=== PATIENT | male | born 1950 | race Caucasian/White ===

== ENCOUNTER 2024-02-20 01:04 | Inpatient (IN) | payer MEDICARE, SELFPAY ==
[2024-02-20] VITALS (38 sets, daily range): BP systolic 91–148; BP diastolic 63–91; PULSE 44–76; RESP 0–27; TEMP 36.1–36.7; O2SAT 96–100; BMI 31.1
--- NOTE | 2024-02-20 01:10 | ED.VIS.GI ---
HPI HPI - GI History of Present Illness Chief Complaint: Abd Pain Informant: patient Abdominal Pain/Flank Pain Onset: Today and Hours (6) Context: Gradual Onset Timing: Continuous Quality: - (Pressure) Location: Epigastric, RUQ and LUQ Worsened by: Nothing Relieved by: Nothing Nausea/Vomiting/Emesis GI Symptom: Negative for Nausea or Vomiting Diarrhea/Melena/Hematochezia GI Symptom: Negative for Diarrhea, Melena or Hematochezia Associated Symptoms Associated Symptoms: Negative for Dysuria, Frequency or Hematuria Narrative Narrative: Patient presents with epigastric abdominal pain that began tonight approximately 6 hours prior to arrival. Patient states that his pain started in his epigastric area and radiated around to both upper quadrants. Patient states the pain radiated to his back. Patient states he had a similar episode 1 week ago and took ibuprofen for it and it resolved at that time. Patient states he took some ibuprofen tonight with no improvement. Patient describes his pain as a pressure. Patient states nothing makes his pain worse and nothing makes it better. Patient denies any chest pain or shortness of breath. Patient denies any nausea or vomiting. Patient denies any diarrhea, melena, or hematochezia. Patient denies any urinary complaints. [facility] Medical History (Updated 02/20/24 @ 06:[address] Jorgito Schaffer DO) Ischemic colitis Psoriatic arthritis Home Medications etanercept 50 mg/mL (1 mL) subcutaneous syringe (Enbrel) 50 mg subcut QWEEK 02/20/24 [History Last Taken Unknown] pantoprazole 20 mg tablet,delayed release (Protonix) 20 mg PO DAILY 02/20/24 [History Last Taken Unknown] Allergy/AdvReac Type Severity Reaction Status Date / Time clarithromycin [From Biaxin] Allergy Hives Verified 02/20/24 01:12 erythromycin base Allergy Rash Verified 02/20/24 01:12 Penicillins Allergy Rash Verified 02/20/24 01:12 Sulfa (Sulfonamide Allergy Hives Verified 02/20/24 01:12 Antibiotics) Surgical History S/P appy S/P hernia repair Social History Smoking Status: Never smoker ROS ROS ED Constitutional Constitutional ED: Denies chills or fever(s) Eyes Eyes: Denies blurry vision or change in vision ENT ENT ED: Denies rhinorrhea or sore throat Cardiovascular Cardiovascular: Denies chest pain or palpitations Respiratory/Chest Respiratory/Chest: Denies cough or dyspnea Gastrointestinal Gastrointestinal: Reports abdominal pain; Denies nausea or vomiting Genitourinary Genitourinary ED: Denies dysuria or hematuria Musculoskeletal Musculoskeletal: Reports back pain; Denies neck pain Integumentary Denies abscess or rash Neurologic Neurologic: Denies headache(s) or weakness Allergic/Immunologic Allergic/Immunologic ED: Denies mouth swelling or urticaria EXAM Physical Exam Const Vital Signs: 02/20/24 01:06 02/20/24 02:45 02/20/24 03:07 Temperature 96.9 F L Temperature Source Oral Pulse Rate 59 L 65 Respiratory Rate 16 16 Blood Pressure 131/73 H 112/80 Blood Pressure Mean 92 90 Pulse Ox 100 100 Oxygen Delivery Method Room Air Room Air Room Air 02/20/24 05:00 Temperature Temperature Source Pulse Rate 70 Respiratory Rate 17 Blood Pressure 112/75 Blood Pressure Mean 87 Pulse Ox 98 Oxygen Delivery Method Room Air Positive well nourished and well developed General Appearance ED: well developed and NAD HEENT Reports moist mucous membranes Neck supple and no JVD Resp normal respiratory effort and clear to auscultation bilaterally Cardio regular rhythm Rate: bradycardia GI non-distended Palpation: soft and tender epigastric, LUQ and RUQ; Negative for guarding or rebound tenderness present Neuro CN's II-XII intact bilaterally, moves all extremities and no sensory deficits noted Sensorium / Orientation: alert Motor Exam: strength 5/5 throughout Psych mental status grossly normal MDM MDM MDM Narrative Medical decision making narrative: Differential diagnosis includes gastritis, gastroesophageal reflux disease, pancreatitis, peptic ulcer disease, duodenal ulcer, cholecystitis, cholelithiasis, cardiac dysrhythmia, cardiac ischemia, pneumonia, and electrolyte abnormality. EKG will be obtained to assess for cardiac dysrhythmia and cardiac ischemia. Chest x-ray will be obtained to assess for pneumonia and pneumothorax. CBC will be obtained to assess for leukocytosis and anemia. Basic metabolic profile will be obtained to assess for electrolyte abnormality and renal function. High-sensitivity troponin will be obtained to assess for cardiac ischemia. Lipase will be obtained to assess for pancreatitis. Hepatic profile will be obtained to assess for hepatic function. PT was INR and PTT will be obtained to assess for coagulopathy. Urinalysis will be obtained to assess for urinary tract infection and hematuria. 2-hour repeat high-sensitivity troponin will be obtained to assess for ongoing cardiac ischemia. Lab Data Attestation: I reviewed the patient's lab results. Lab results narrative: CBC was reviewed. There is a mild leukocytosis of 12.3. The remainder is within normal limits. Basic metabolic profile was reviewed and was essentially within normal limits. Glucose was mildly elevated at 131. PT was INR and PTT were reviewed and were within normal limits. Initial high-sensitivity troponin was reviewed and was normal at 6. Lipase was reviewed and was normal at 39. Hepatic profile was reviewed. Total bilirubin was elevated at 2.5, direct bilirubin was elevated at 1.26, AST was elevated at 297, and ALT was elevated at 201. Alkaline phosphatase was normal at 68. Urinalysis was reviewed. There is no evidence of urinary tract infection or hematuria. Labs: Laboratory Results - last 24 hr 02/20/24 02/20/24 02/20/24 00:43 02:55 04:14 WBC 12.3 H RBC 4.93 Hgb 14.7 Hct 45.1 MCV 91.5 MCH 29.8 MCHC 32.6 RDW Std Deviation 46.1 H RDW Coeff of Erika 13.6 Plt Count 249 MPV 10.5 Immature Gran % (Auto) 0.300 Neut % (Auto) 43.4 L Lymph % (Auto) 45.5 H [place] % (Auto) 8.0 Eos % (Auto) 2.2 Baso % (Auto) 0.6 Absolute Neuts (auto) 5.3 Absolute Lymphs (auto) 5.58 H Nucleated RBC % 0 Differential Comment SCANNED Reactive Lymphocytes 1+ PT 13.8 INR 1.1 APTT 22.8 L Sodium 139 Potassium 3.7 Chloride 105 Carbon Dioxide 27.0 Anion Gap 7 BUN 25 H Creatinine 1.14 Estim Creat Clear Calc 68.24 Est GFR (MDRD) Af Amer 81 Est GFR (MDRD) Non-Af 67 BUN/Creatinine Ratio 21.9 H Glucose 131 H Calcium 9.0 Total Bilirubin 2.50 H Direct Bilirubin 1.26 H AST 297 H ALT 201 H Alkaline Phosphatase 68 Troponin I High Sens 6 5 Total Protein 6.9 Albumin 3.6 Globulin 3.3 Lipase 39 Urine Color Yellow Urine Clarity Clear Urine pH 6.0 Ur Specific [place] 1.025 Urine Protein 30 H Urine Glucose (UA) Normal Urine Ketones 15 H Urine Occult Blood 10 H Urine Nitrite Negative Urine Bilirubin 1 H Urine Urobilinogen 4 H Ur Leukocyte Esterase 25 H Urine RBC 0 SEEN Urine WBC 0 SEEN Ur Squamous Epith Cells 0 SEEN Urine Bacteria 1+ Urine Mucus 3+ Radiography Chest X-Ray - ED: 1 View, Read by ED Physician and Read by Radiologist Diagnostic Testing: Clinical Impression(s) from Imaging Studies Chest X-Ray 02/20/24 02:05 IMPRESSION: No radiographic evidence of acute cardiopulmonary disease. Electronically Signed: Dante Deshpande MD at 2:43 EDT Reading Location ID and State: [facility] / [place] Tel , Service support , Abdomen/Pelvis CT 02/20/24 04:20 IMPRESSION: 1. No acute intra-abdominal abnormalities identified. 2. Small gallstones. Electronically Signed: Dante Deshpande MD at 5:22 EDT Reading Location ID and State: [facility] / [place] Tel , Service support , Portable 1 view chest x-ray was obtained. On my independent interpretation, lung holder are clear. There is normal cardiac silhouette. Bony thorax is normal. There is no acute process noted. Radiologist also interpreted the x-ray and agrees. CT scan of the abdomen pelvis was obtained. There is no acute intra-abdominal process noted. There are small gallstones noted. This was interpreted by the radiologist was also independently reviewed by myself. EKG Initial EKG: Attestation: I personally reviewed and interpreted this EKG as follows: Interpretation: No Acute Injury Pattern and Sinus Bradycardia (52) Comments: EKG was obtained. On my independent interpretation, it showed sinus bradycardia with a first-degree AV block with a rate of 52. NE interval was prolonged at 230 ms. QRS interval was normal at 92 ms. QTc interval is normal at 416 ms. [place] was normal. There are no acute ST or T wave changes. Prior EKG tracings: not available for review Prior: No Prior Treatment and Re-Evaluation :: Patient was given morphine here. Patient was also given a dose of Protonix. Patient was feeling better on reevaluation. Because of the elevated liver function tests and normal CT findings, right upper quadrant ultrasound will be obtained later this morning. Patient understands and is agreeable with the plan. Care of the patient will be turned over the oncoming physician pending ultrasound. Discharge Plan Triage Chief Complaint: Abd Pain ED Provider: Jorgito Schaffer Dx/Rx/DC Orders Clinical Impression: Abdominal pain, epigastric, Cholelithiasis Prescriptions: No Action pantoprazole [Protonix] 20 mg tablet,delayed release (DR/EC) 20 mg PO DAILY Enbrel 50 mg/mL (1 mL) syringe 50 mg subcut QWEEK Primary Care Provider: RASHMI BUCHANAN Referrals: RASHMI BUCHANAN [Other]
--- NOTE | 2024-02-20 02:05 | RAD_ITS ---
EXAM: XR CHEST, 1 VIEW CLINICAL INDICATION: chest pain TECHNIQUE: Frontal view of the chest. COMPARISON: No relevant prior studies available. FINDINGS: LUNGS AND PLEURAL SPACES: Unremarkable. No consolidation or edema. No pneumothorax. No effusion. HEART: Unremarkable. Cardiac silhouette not enlarged. MEDIASTINUM: Central airways and mediastinal contour are unremarkable. BONES/JOINTS: Unremarkable. No acute fracture. SOFT TISSUES: Unremarkable. RAD/Chest 1 View (Portable) IMPRESSION: No radiographic evidence of acute cardiopulmonary disease. Electronically Signed: Dante Deshpande MD at 2:43 EDT ,
[2024-02-20 02:06] LABS: Absolute Lymphocyte Count 5.58 X10^3/uL (0.83-4.51); Absolute Neutrophil Count 5.3 X10^3/uL (2.0-7.7); Basophil# 0.07 X10^3/uL; Basophil% 0.6 % (0-1); Eosinophil# 0.27 X10^3/uL; Eosinophils% 2.2 % (0-5); Hematocrit 45.1 % (40-54); Hemoglobin 14.7 g/dL (13.0-16.5); Lymphocyte # 5.58 X10^3/ul (0.83-4.51); Lymphocyte % 45.5 % (19-41); Mean Corp Hgb Conc 32.6 g/dL (32-36); Mean Corpuscular Hgb 29.8 pg (27.0-32.0); Mean Corpuscular Volume 91.5 fL (80-94); Mean Platelet Vol. 10.5 fl (6.2-12.0); Monocyte# 0.98 X10^3/uL; NRBC Flagged by Analyzer 0 % (0-5); Neutrophil # 5.32 X10^3/uL (2.7-7.7); Neutrophil % 43.4 % (47-70); POSITIVE DIFFERENTIAL YES; POSITIVE MORPHOLOGY YES; Platelet Count 249 K/mm3 (150-450); RBC Distribution Width CV 13.6 % (11.6-14.6); RBC Distribution Width SD 46.1 fl (35.1-43.9); Red Blood Count 4.93 M/mm3 (4.6-6.2); White Blood Count 12.3 K/mm3 (4.4-11.0)
[2024-02-20 02:11] LABS: Differential Indicated SCAN CRITERIA MET
[2024-02-20 02:18] LABS: International Normalized Ratio 1.1; Partial Thromboplast Time 22.8 Seconds (24.1-36.2); Prothrombin Time (Protime)PT. 13.8 SECONDS (11.7-14.9)
[2024-02-20 02:28] LABS: Anion Gap 7 (5-15); BUN 25 mg/dL (7-18); BUN/Creat Ratio 21.9 RATIO (10-20); Chloride 105 mmol/L (98-107); Creatinine, Serum 1.14 mg/dL (0.70-1.30); EST Glomerular Filtration Rate 67 mL/min (>60); Est Glom Filt Rate - Afr Amer 81 mL/min (>60); Estimated Creatinine Clearance 68.24 ml/min; Glucose 131 mg/dL (74-106); Lipase 39 U/L (13-75); Potassium 3.7 mmol/L (3.5-5.1); Sodium Level 139 mmol/L (136-145); Troponin-I HS (w/2H Reflex) 6 pg/mL (3.0-78.0)
[2024-02-20 02:52] LABS: Differential Comment SCANNED; Reactive Lymphocyte 1+
[2024-02-20 03:00] LABS: Color, Urine Yellow (Yellow); Glucose, Dipstick Normal (Normal); Ketone-Dipstick 15 mg/dl (Negative); Leukocyte Esterase-Dipstick 25 /ul (Negative); Nitrite-Dipstick Negative (Negative); Occult Blood-Urine 10 /ul (Negative); Protein-Dipstick 30 mg/dl (Negative); Red Blood Cells-Urine 0 SEEN /hpf (0-5); Specific Gravity, Urine 1.025 (1.002-1.030); Squamous Epithelial Cells - UA 0 SEEN /hpf (0-5); Urine Clarity Clear (Clear); Urine Urobilinogen 4 mg/dl (Normal); White Blood Cells 0 SEEN /hpf (0-5)
[2024-02-20] MEDS: Pantoprazole Sodium 80 MG in 0.9% Normal Saline (50mL Bag) 15 ML 420 MG IV BOLUS (03:05)
[2024-02-20 03:18] LABS: Bacteria 1+ /hpf (None Seen); Mucous, Urine 3+ /hpf (<or=2+); Urine Bilirubin Dipstick 1 mg/dL (Negative)
[2024-02-20 04:03] LABS: Reflex Troponin-HS? (from REC) Y
[2024-02-20] MEDS: Morphine 4 MG/ML Syringe IV (04:08)
--- NOTE | 2024-02-20 04:20 | CT_ITS ---
EXAM: CT ABDOMEN AND PELVIS WITH INTRAVENOUS CONTRAST CLINICAL INDICATION: Abdominal pain TECHNIQUE: Helically acquired images were obtained of the abdomen and pelvis with intravenous contrast. This CT exam was performed using one or more of the following dose reduction techniques: automated exposure control, adjustment of the mA and/or kV according to patient size, and/or use of iterative reconstruction technique. CONTRAST: IV 100mL Isovue-370 RADIATION DOSE: CTDIvol = 20.62 mGy, DLP = 1139.57 mGy-cm COMPARISON: No relevant prior studies available. FINDINGS: LOWER THORAX: Bibasilar dependent atelectasis. No cardiomegaly. No significant pericardial effusion. ABDOMEN: LIVER: Unremarkable. Homogeneous. No focal mass. GALLBLADDER AND BILE DUCTS: Small gallstones. No gallbladder distention or wall edema. No intra- or extrahepatic biliary ductal dilation. PANCREAS: No inflammation around the pancreas. No focal cystic or solid mass. SPLEEN: Unremarkable. Normal size without focal cystic or solid mass. ADRENALS: Unremarkable. No nodules. KIDNEYS AND URETERS: Unremarkable. Normal renal size and position. No hydronephrosis. STOMACH AND BOWEL: Unremarkable. No stomach or bowel distention. No focal inflammatory change. PELVIS: APPENDIX: Appendectomy. BLADDER: Unremarkable. REPRODUCTIVE: Unremarkable as visualized. No mass. ABDOMEN and PELVIS: INTRAPERITONEAL SPACE: Unremarkable. No ascites or other fluid collection. No free air. BONES/JOINTS: Unremarkable. No suspicious lytic or blastic abnormality. SOFT TISSUES: Small fat-containing periumbilical hernia. VASCULATURE: Unremarkable. Abdominal aorta is non-dilated. LYMPH NODES: Unremarkable. No enlarged lymph nodes. CT/Abdomen/Pelvis W IV Cont ONLY IMPRESSION: 1. No acute intra-abdominal abnormalities identified. 2. Small gallstones. Electronically Signed: Dante Deshpande MD at 5:22 EDT ,
[2024-02-20 04:45] LABS: AST(SGOT) 297 U/L (15-37); Alanine Aminotransfer ALT/SGPT 201 U/L (16-61); Albumin, Serum 3.6 g/dL (3.2-5.0); Alkaline Phosphatase 68 U/L (45-117); Bilirubin, Direct 1.26 mg/dL (0.00-0.30); Globulin 3.3 g/dL (2.2-4.2); Protein, Total 6.9 g/dL (6.4-8.2); Troponin-I HS 5 pg/mL (3.0-78.0)
--- NOTE | 2024-02-20 06:21 | US_ITS ---
STUDY: ABDOMINAL ULTRASOUND - RIGHT UPPER QUADRANT REASON FOR VISIT: Male, 73 years old ABD PAIN TECHNIQUE: Ultrasound evaluation of the right upper quadrant was performed with real-time and static isaacs-scale imaging. TECHNICAL QUALITY: Limited. Examination limited by bowel gas. COMPARISON: None. FINDINGS: Liver: The liver measures 18 cm. There is increased echogenicity consistent with fatty infiltration. The bile ducts are within normal limits. There is hepatic color flow. The direction of portal flow is hepatopetal. There is no demonstrated mass lesion. Gallbladder: Normal distended gallbladder. The gallbladder wall measures 3.2 mm. There is a positive sonographic Shaver''s sign. There is minimal pericholecystic fluid. There are multiple echogenic structures within the gallbladder, consistent with multiple gallstones along with echogenic sludge. Common Bile Duct (C.B.D.): The common bile duct measures 3.7 mm. Pancreas: There is nonvisualization of the pancreas. Right Kidney: Normal size of the right kidney. The right kidney measures 11 x 5.3 x 5.3 cm. Normal renal cortex. The right cortex measures 1.3 cm. There is no demonstrated renal mass or cyst. There is no right hydronephrosis. US/Abdomen Limited IMPRESSION: Multiple echogenic gallstones noted along with echogenic sludge, or wall thickening, positive Shaver sign and pericholecystic fluid. Findings consistent with acute cholecystitis. Surgical consultation recommended Hepatomegaly with diffuse fatty infiltration, no discrete lesion Electronically Signed: Jabari Soto MD at 9:05 EDT ,
--- NOTE | 2024-02-20 10:03 | NURSING ---
DR NAVARRO IN ROOM
--- NOTE | 2024-02-20 10:40 | PCM.HP.STD ---
HPI - General General Date of Admission: 02/20/24 HPI Narrative JULIO DAS, is a 73 M who presents to [facility] with complaints of acute onset right upper quadrant radiating abdominal pain. He shares that last evening at approximately 7 PM he began to get uncomfortable but by the time that time approached he was unable to find a comfortable position despite taking a couple of ibuprofen. He shares that he had some cold sweats at the time but did not record a fever and denies any associated nausea. He notified his and the called EMS. Patient's ER workup was notable for CBC demonstrating mild leukocytosis of 12,000. Further CMP showed elevations of the patient's liver function testing and bilirubin. CT of the abdomen pelvis showed no acute intra-abdominal abnormalities per radiology but given patient's laboratories a abdominal ultrasound was obtained. This showed a gallbladder with normal gallbladder wall thickness but mild pericholecystic fluid and dormitory maid noted a positive Shaver sign. Also notably the common bile duct was within normal limits at 3.7 mm diameter. Thus radiology interpreted this was consistent with acute cholecystitis. Patient states this is actually his second such episode of abdominal discomfort in the last 1 week. He shares that just 1 week ago he had a similar episode of pain that was relieved by 2 ibuprofen. He notes that both episodes followed eating by approximately 2 hours. Patient is reasonably healthy with diagnoses of sporadic ischemic colitis (which she states manifests after periods of dehydration and numerous loose stools approximately 1 time per year). He notes that his present episode was distinct from these prior experiences. He has diagnosed with psoriatic arthritis and uses Enbrel to control his symptoms. He states his last use of Enbrel was 02/17/2024. Mr. Das has a history of a open appendectomy at age 23 and a inguinal hernia repair done 11 or 12 years ago at [facility] in [place]. [facility] Medical History (Updated 02/20/24 @ 11:[address] Julio Murphy MD) Ischemic colitis Psoriatic arthritis Home Medications etanercept 50 mg/mL (1 mL) subcutaneous syringe (Enbrel) 50 mg subcut QWEEK 02/20/24 [History Last Taken Unknown] pantoprazole 20 mg tablet,delayed release (Protonix) 20 mg PO DAILY 02/20/24 [History Last Taken Unknown] Allergy/AdvReac Type Severity Reaction Status Date / Time clarithromycin [From Biaxin] Allergy Hives Verified 02/20/24 01:12 erythromycin base Allergy Rash Verified 02/20/24 01:12 Penicillins Allergy Rash Verified 02/20/24 01:12 Sulfa (Sulfonamide Allergy Hives Verified 02/20/24 01:12 Antibiotics) Surgical History S/P appy S/P hernia repair Social History Smoking Status: Never smoker Vital Signs Vital Signs Vital Signs: 02/20/24 01:06 02/20/24 02:45 02/20/24 03:07 Temperature 96.9 F L Temperature Source Oral Pulse Rate 59 L 65 Respiratory Rate 16 16 Blood Pressure 131/73 H 112/80 Blood Pressure Mean 92 90 Pulse Ox 100 100 Oxygen Delivery Method Room Air Room Air Room Air 02/20/24 05:00 02/20/24 07:00 02/20/24 01:34 Temperature Temperature Source Pulse Rate 70 49 L 52 L Respiratory Rate 17 19 H 15 Blood Pressure 112/75 103/70 Blood Pressure Mean 87 81 Pulse Ox 98 98 99 Oxygen Delivery Method Room Air Room Air 02/20/24 01:45 02/20/24 02:00 02/20/24 02:15 Temperature Temperature Source Pulse Rate 56 L 55 L 56 L Respiratory Rate 27 H 14 14 Blood Pressure 114/88 H 99/75 98/75 Blood Pressure Mean 98 84 84 Pulse Ox 98 96 96 Oxygen Delivery Method 02/20/24 02:30 02/20/24 02:45 02/20/24 03:04 Temperature Temperature Source Pulse Rate 55 L Respiratory Rate 13 0 L Blood Pressure 105/73 101/77 Blood Pressure Mean 85 86 Pulse Ox 97 98 Oxygen Delivery Method 02/20/24 03:08 02/20/24 03:08 02/20/24 03:15 Temperature Temperature Source Pulse Rate 52 L 52 L 53 L Respiratory Rate 14 14 17 Blood Pressure 112/80 112/80 116/80 Blood Pressure Mean 91 91 93 Pulse Ox 100 100 100 Oxygen Delivery Method 02/20/24 03:15 02/20/24 03:30 02/20/24 03:45 Temperature Temperature Source Pulse Rate 53 L 49 L 44 L Respiratory Rate 17 13 22 H Blood Pressure 116/80 115/77 107/79 Blood Pressure Mean 93 90 89 Pulse Ox 100 98 100 Oxygen Delivery Method 02/20/24 04:00 02/20/24 04:15 02/20/24 04:30 Temperature Temperature Source Pulse Rate 46 L 51 L 54 L Respiratory Rate 22 H 20 H 13 Blood Pressure 126/82 H 148/84 H 106/81 H Blood Pressure Mean 97 105 89 Pulse Ox 100 100 97 Oxygen Delivery Method 02/20/24 04:45 02/20/24 04:58 02/20/24 05:00 Temperature Temperature Source Pulse Rate 61 57 L Respiratory Rate 12 12 Blood Pressure 91/72 112/75 Blood Pressure Mean 80 87 Pulse Ox 99 98 Oxygen Delivery Method 02/20/24 05:15 02/20/24 05:30 02/20/24 05:45 Temperature Temperature Source Pulse Rate 55 L 55 L Respiratory Rate 12 13 Blood Pressure 110/74 102/74 102/74 Blood Pressure Mean 86 83 83 Pulse Ox 97 97 Oxygen Delivery Method 02/20/24 06:00 02/20/24 06:15 02/20/24 06:30 Temperature Temperature Source Pulse Rate 68 50 L Respiratory Rate 15 12 Blood Pressure 108/75 107/74 107/73 Blood Pressure Mean 86 85 85 Pulse Ox 99 97 Oxygen Delivery Method 02/20/24 06:45 02/20/24 07:00 02/20/24 07:15 Temperature Temperature Source Pulse Rate 46 L 48 L Respiratory Rate 12 13 Blood Pressure 106/75 103/70 109/76 Blood Pressure Mean 85 81 87 Pulse Ox 98 98 Oxygen Delivery Method 02/20/24 07:30 02/20/24 07:45 02/20/24 08:00 Temperature Temperature Source Pulse Rate 48 L 54 L 50 L Respiratory Rate 12 13 12 Blood Pressure 109/80 107/78 111/81 H Blood Pressure Mean 90 87 91 Pulse Ox 98 98 98 Oxygen Delivery Method 02/20/24 08:45 02/20/24 09:15 Temperature Temperature Source Pulse Rate 47 L Respiratory Rate 16 Blood Pressure 118/90 H 112/74 Blood Pressure Mean 99 87 Pulse Ox 99 Oxygen Delivery Method Weight Weight: 213 lb 10.047 oz Body Mass Index (BMI) 31.1 Physical Exam Const alert, oriented x3 and no apparent distress Resp normal respiratory effort GI GI Narrative: Overweight, readily visible umbilical hernia, no immediately visible scarring, nondistended, soft, tender to palpation in the right upper quadrant with negative Shaver sign Results Lab / Micro Data 02/20/24 00:43 02/20/24 00:43 Labs: Laboratory Results - last 24 hr 02/20/24 00:43: WBC 12.3 H, RBC 4.93, Hgb 14.7, Hct 45.1, MCV 91.5, MCH 29.8, MCHC 32.6, RDW Std Deviation 46.1 H, RDW Coeff of Erika 13.6, Plt Count 249, MPV 10.5, Immature Gran % (Auto) 0.300, Neut % (Auto) 43.4 L, Lymph % (Auto) 45.5 H, [place] % (Auto) 8.0, Eos % (Auto) 2.2, Baso % (Auto) 0.6, Absolute Neuts (auto) 5.3, Absolute Lymphs (auto) 5.58 H, Nucleated RBC % 0, Differential Comment SCANNED, Reactive Lymphocytes 1+, PT 13.8, INR 1.1, APTT 22.8 L, Sodium 139, Potassium 3.7, Chloride 105, Carbon Dioxide 27.0, Anion Gap 7, BUN 25 H, Creatinine 1.14, Estim Creat Clear Calc 68.24, Est GFR (MDRD) Af Amer 81, Est GFR (MDRD) Non-Af 67, BUN/Creatinine Ratio 21.9 H, Glucose 131 H, Calcium 9.0, Troponin I High Sens 6, Lipase 39 02/20/24 02:55: Urine Color Yellow, Urine Clarity Clear, Urine pH 6.0, Ur Specific [place] 1.025, Urine Protein 30 H, Urine Glucose (UA) Normal, Urine Ketones 15 H, Urine Occult Blood 10 H, Urine Nitrite Negative, Urine Bilirubin 1 H, Urine Urobilinogen 4 H, Ur Leukocyte Esterase 25 H, Urine RBC 0 SEEN, Urine WBC 0 SEEN, Ur Squamous Epith Cells 0 SEEN, Urine Bacteria 1+, Urine Mucus 3+ 02/20/24 04:14: Total Bilirubin 2.50 H, Direct Bilirubin 1.26 H, AST 297 H, ALT 201 H, Alkaline Phosphatase 68, Troponin I High Sens 5, Total Protein 6.9, Albumin 3.6, Globulin 3.3 Imaging Radiology Impression Chest X-Ray 02/20/24 02:05 IMPRESSION: No radiographic evidence of acute cardiopulmonary disease. Electronically Signed: Dante Deshpande MD at 2:43 EDT , Abdomen/Pelvis CT 02/20/24 04:20 IMPRESSION: 1. No acute intra-abdominal abnormalities identified. 2. Small gallstones. Electronically Signed: Dante Deshpande MD at 5:22 EDT , Abdomen Ultrasound 02/20/24 06:21 IMPRESSION: Multiple echogenic gallstones noted along with echogenic sludge, or wall thickening, positive Shaver sign and pericholecystic fluid. Findings consistent with acute cholecystitis. Surgical consultation recommended Hepatomegaly with diffuse fatty infiltration, no discrete lesion Electronically Signed: Jabari Soto MD at 9:05 EDT , Assessment & Plan Assessment/Plan (1) Cholecystitis, acute with cholelithiasis: PLAN: Patient is a 73-year-old male with minimal past medical history who presents with acute onset right upper quadrant abdominal discomfort with a radiating character that is consistent with a diagnosis of acute cholecystitis. Pain onset has occurred twice?both in a postprandial state. Patient's ER workup shows evidence of gallbladder inflammation and confirms presence of cholelithiasis. Thus patient has been counseled on these findings and the recommendation to pursue laparoscopic cholecystectomy with intraoperative cholangiography details of the procedure were given as well as post procedure expectations. He and his were receptive of this information and in the interim patient will be admitted to an inpatient status with IV antibiotic therapy. He has allergies to penicillins but according to his , who is a registered nurse, patient previously tolerated cephalosporins so he will be started on Rocephin IV. Patient okay for clear liquid diet until midnight and then patient should be n.p.o. past midnight in anticipation of surgery. Consents to be obtained. (2) Abnormal LFTs (liver function tests): PLAN: Patient with abnormal liver function testing and hyperbilirubinemia but common bile duct diameter is within normal limits. This therefore is mildly suggestive for underlying choledocholithiasis. Will plan for intraoperative cholangiography in addition to cholecystectomy as described above. (3) Conjugated hyperbilirubinemia: PLAN: Patient reports a history of elevated bilirubin extending beyond his acute presentation. He shares that this was previously explained as a side effect of his Enbrel therapy. Yet with the associated elevations in his LFTs and is suggestive for possible choledocholithiasis as well. The possibility of ERCP if positive IOC is found was discussed. (4) Umbilical hernia without obstruction and without gangrene: PLAN: Patient with a chronic nonobstructive umbilical hernia measuring just over 2 cm in diameter. On exam this hernia appears to contain fat but is easily reduced. Patient does not have a significant distance between his supraumbilical space and subxiphoid territory which limits operative port placement if we look to try to avoid his hernia. Thus I have offered performing a primary umbilical hernia repair at the time of his operation and simply using his hernia defect for placement of our primary port. Patient was initially hesitant but then confirms his willingness to abide by postoperative activity restrictions of no lifting greater than 15 pounds for 4 weeks after the operation the name of trying to avoid a second surgery. I did share with him that under elective conditions I would recommend mesh usage but given the potential for cross-contamination from the cholecystectomy would not plan for mesh incorporation with this repair. Patient expressed understanding and therefore patient is to be consented for primary repair of umbilical hernia along with cholecystectomy discussed above. Charges/Coding Visit Charges Inpatient E&M: 45343 Init Hosp L2
--- NOTE | 2024-02-20 10:42 | NURSING ---
MED SURG [facility] ACUTE CHOLECYSTITIS
[2024-02-20] MEDS: 0.9% Normal Saline (1000mL) 1,000 ML 125 ML IV ×2 (12:22→21:59)
[2024-02-20] MEDS: Ceftriaxone 1 GM/50 ML BAG IV (12:22)
[2024-02-21] VITALS (14 sets, daily range): BP systolic 95–125; BP diastolic 63–83; PULSE 50–78; RESP 12–18; TEMP 36.2–36.7; O2SAT 92–100; BMI 31.1
--- NOTE | 2024-02-21 | GALL_PTH ---
PATIENT: JULIO DAS LOC: MS3 U#:[id number] AGE/SX: 73/M ROOM: MS311 RE02/20/[address]: Dr. Julio Murphy MD : 1950 BED: 1 DIS: 02/22/2024 SPEC #: [id number] RECD: 02/21/24 17:22 STATUS: TALIB BRIGHTHanny #: [id number] CRISTI: 02/21/24 00:[address]: Julio Murphy DEPT: SURGICAL PATHOLOGY RECD BY: Raghavendra Aguero Tissues: Gallbladder, NOS Procedures: Surgery Specimen Level III HEADER OPERATION: Laparoscopic, cholecystectomy with IOC, umbilical hernia repair PRE-OP DIAGNOSIS: Cholecystitis, acute with cholelithiasis, abnormal LFT's, conjugated hyperbilirubinemia, umbilical hernia without obstruction and without gangrene TISSUE SUBMITTED: Gallbladder MICROSCOPIC DIAGNOSIS Gallbladder, cholecystectomy: Chronic cholecystitis, cholelithiasis and cholesterolosis. SJ/mr 02/23/2024 MICROSCOPIC DESCRIPTION Slides are reviewed. GROSS DESCRIPTION Received is one container labeled with the patient's name and designated gallbladder. The specimen consists of a gallbladder measuring 7.5 cm in length and up to 3.5 cm in diameter. The external surface is pink-garaz, smooth and glistening for the most part. Focally it is granular, hemorrhagic and contains cautery artifact. The gallbladder contains green-yellow mucoid bile and one irregular black stone measuring 0.4 cm in greatest dimension. The mucosa is bile-stained and without any mass lesions. The gallbladder wall measures up to 0.3 cm in thickness. [employer] Se[employer] Delivery System Maintainer sections from the gallbladder and the cystic duct are submitted in one cassette. / SJ: 02/22/24 TC:3 CPT: 69899
[2024-02-21 04:27] LABS: Absolute Lymphocyte Count 2.49 X10^3/uL (0.83-4.51); Absolute Neutrophil Count 2.9 X10^3/uL (2.0-7.7); Basophil# 0.06 X10^3/uL; Eosinophil# 0.29 X10^3/uL; Eosinophils% 4.6 % (0-5); Hematocrit 41.1 % (40-54); Hemoglobin 13.5 g/dL (13.0-16.5); Lymphocyte # 2.49 X10^3/ul (0.83-4.51); Lymphocyte % 39.6 % (19-41); Mean Corp Hgb Conc 32.8 g/dL (32-36); Mean Corpuscular Hgb 30.3 pg (27.0-32.0); Mean Corpuscular Volume 92.2 fL (80-94); Mean Platelet Vol. 9.7 fl (6.2-12.0); Monocyte# 0.49 X10^3/uL; Monocyte% 7.8 % (0-10); NRBC Flagged by Analyzer 0 % (0-5); Neutrophil # 2.93 X10^3/uL (2.7-7.7); Neutrophil % 46.7 % (47-70); Platelet Count 198 K/mm3 (150-450); RBC Distribution Width CV 13.9 % (11.6-14.6); RBC Distribution Width SD 47.6 fl (35.1-43.9); Red Blood Count 4.46 M/mm3 (4.6-6.2); White Blood Count 6.3 K/mm3 (4.4-11.0)
[2024-02-21 04:49] LABS: ALB/GLOB Ratio 1.1 RATIO (0.9-2.4); AST(SGOT) 214 U/L (15-37); Alanine Aminotransfer ALT/SGPT 284 U/L (16-61); Albumin, Serum 3.1 g/dL (3.2-5.0); Alkaline Phosphatase 77 U/L (45-117); Anion Gap 6 (5-15); BUN 11 mg/dL (7-18); BUN/Creat Ratio 13.2 RATIO (10-20); Calcium,Total 8.2 mg/dL (8.5-10.1); Chloride 112 mmol/L (98-107); Creatinine, Serum 0.83 mg/dL (0.70-1.30); EST Glomerular Filtration Rate 97 mL/min (>60); Est Glom Filt Rate - Afr Amer 117 mL/min (>60); Estimated Creatinine Clearance 93.73 ml/min; Globulin 2.9 g/dL (2.2-4.2); Glucose 82 mg/dL (74-106); Potassium 3.9 mmol/L (3.5-5.1); Sodium Level 141 mmol/L (136-145)
[2024-02-21] MEDS: 0.9% Normal Saline (1000mL) 1,000 ML 125 ML IV ×3 (06:08→23:19)
--- NOTE | 2024-02-21 08:24 | PCM.PN.SRG ---
Subjective Subjective Patient seen and examined during AM rounds. He is found resting in bed. He denies any recurrence of his abdominal pain but complains only of some mild lower back pain he does share that he discussed his elevated bilirubin with his and they concluded that his elevation upon evaluation yesterday was significantly higher than what he has seen previously associated with his Enbrel medication. Objective Data Objective Data Vital Signs: Vital Signs Temp Pulse Resp BP Pulse Ox O2 Del Method 98.0 F 50 L 16 115/83 H 97 Room Air 02/21/24 03:30 02/21/24 03:30 02/21/24 03:30 02/21/24 03:30 02/21/24 03:30 02/21/24 08:00 Oxygen Delivery Method Room Air Weight: 213 lb 10.047 oz Body Mass Index (BMI) 31.1 Intake & Output: Intake and Output for Last 24 Hours 02/19/24 02/20/24 02/21/24 23:59 23:59 23:59 Intake Total 1085 / 1335 1250 / 1250 Balance 1085 / 1335 1250 / 1250 Lab / Micro Data 02/21/24 04:00 02/21/24 04:00 Labs: Laboratory Results - last 24 hr 02/21/24 04:00: WBC 6.3, RBC 4.46 L, Hgb 13.5, Hct 41.1, MCV 92.2, MCH 30.3, MCHC 32.8, RDW Std Deviation 47.6 H, RDW Coeff of Erika 13.9, Plt Count 198, MPV 9.7, Immature Gran % (Auto) 0.300, Neut % (Auto) 46.7 L, Lymph % (Auto) 39.6, [place] % (Auto) 7.8, Eos % (Auto) 4.6, Baso % (Auto) 1.0, Absolute Neuts (auto) 2.9, Absolute Lymphs (auto) 2.49, Nucleated RBC % 0, Sodium 141, Potassium 3.9, Chloride 112 H, Carbon Dioxide 23.0, Anion Gap 6, BUN 11, Creatinine 0.83, Estim Creat Clear Calc 93.73, Est GFR (MDRD) Af Amer 117, Est GFR (MDRD) Non-Af 97, BUN/Creatinine Ratio 13.2, Glucose 82, Calcium 8.2 L, Total Bilirubin 2.40 H, AST 214 H, ALT 284 H, Alkaline Phosphatase 77, Total Protein 6.0 L, Albumin 3.1 L, Globulin 2.9, Albumin/Globulin Ratio 1.1 Radiography Diagnostic Testing: Radiology Impression Abdomen Ultrasound 02/20/24 06:21 IMPRESSION: Multiple echogenic gallstones noted along with echogenic sludge, or wall thickening, positive Shaver sign and pericholecystic fluid. Findings consistent with acute cholecystitis. Surgical consultation recommended Hepatomegaly with diffuse fatty infiltration, no discrete lesion Electronically Signed: Jabari Soto MD at 9:05 EDT , Physical Exam Const oriented x3 and no apparent distress Resp normal respiratory effort GI GI Narrative: Nondistended, soft, nontender to palpation?including right upper quadrant Assessment & Plan Assessment/Plan (1) Cholecystitis, acute with cholelithiasis: PLAN: Patient is a 73-year-old male with minimal past medical history who presents with acute onset right upper quadrant abdominal discomfort with a radiating character that is consistent with a diagnosis of acute cholecystitis. Planning for laparoscopic cholecystectomy with intraoperative cholangiography today. Patient is n.p.o. past midnight. (2) Abnormal LFTs (liver function tests): PLAN: Patient with abnormal liver function testing and hyperbilirubinemia but common bile duct diameter is within normal limits. This therefore is mildly suggestive for underlying choledocholithiasis. Will plan for intraoperative cholangiography in addition to cholecystectomy as described above. These remain elevated hospital day 2 but slightly down trended. (3) Conjugated hyperbilirubinemia: PLAN: Patient reports a history of elevated bilirubin extending beyond his acute presentation. He shares that this was previously explained as a side effect of his Enbrel therapy. Yet with the associated elevations in his LFTs and is suggestive for possible choledocholithiasis as well. The possibility of ERCP if positive IOC is found was discussed. (4) Umbilical hernia without obstruction and without gangrene: PLAN: Patient with a chronic nonobstructive umbilical hernia measuring just over 2 cm in diameter. On exam this hernia appears to contain fat but is easily reduced. Patient does not have a significant distance between his supraumbilical space and subxiphoid territory which limits operative port placement if we look to try to avoid his hernia. Thus I have offered performing a primary umbilical hernia repair at the time of his operation and simply using his hernia defect for placement of our primary port. OR notified of this addition to patient's planned case. Charges/Coding Visit Charges Inpatient E&M: 63769 Subs Hosp L2
[2024-02-21] MEDS: Pantoprazole Sodium 40 MG in 0.9% Normal Saline (100mL MB+) 100 ML 330 MG IV (09:13)
[2024-02-21] MEDS: Ceftriaxone 1 GM/50 ML BAG IV (10:00)
--- NOTE | 2024-02-21 13:05 | CASEMGMT ---
This RN CM to pt room for initial assessment, pt is currently of of the floor. Will follow.
--- NOTE | 2024-02-21 13:08 | RAD_ITS ---
INDICATION: LAP DARRION WITH IOC EXAMINATION/TECHNIQUE: 2 cine runs are presented for evaluation. Total Fluoroscopic Time: 23.1 seconds Radiation dosage index: 8.86 mgy. COMPARISON: No relevant prior comparison study available FINDINGS: Filling defects are seen in the proximal common bile duct/common hepatic duct. There is no biliary ductal dilatation. There is free passage into the duodenum. RAD/Cholangiogram/ O R,Initial IMPRESSION: Filling defects in the proximal common hepatic ducts concerning for retained stones. Electronically Signed: Shiv Pérez MD at 15:49 EDT ,
[2024-02-21] MEDS: Bupivacaine Mpf 0.5% 30 ML VIAL (15:45)
--- NOTE | 2024-02-21 15:54 | OP.PCM_ITS ---
Report of Operation Date of Procedure: 02/21/24 Pre-Operative Diagnosis: 1. Acute cholecystitis with elevated LFTs and hyperbi lirubinemia 2. Umbilical hernia Post-Operative Diagnosis: 1. Acute cholecystitis 2. Umbilical hernia Surgery/Procedure Performed:: 1. Laparoscopic cholecystectomy with intraoperative cholangiography 2. Primary repair of umbilical hernia Description of Surgical Findings:: ? Evidence of acute cholecystitis with numerous adhesions and fresh edema planes ? Cholangiogram showing antegrade filling of the common bile duct through the ampulla Vater into the duodenum without filling defect or obstruction as well as retrograde filling of the common hepatic duct system Surgeon: Julio Murphy armature connector: Jose Guy Type of Anesthesia: General/Supplemental Anesthesiologist: Isaac Cooley Specimen's removed: Gallbladder Estimated Blood Loss (mL): 10 Description of Procedure: After proper identification in the preoperative holding area the patient was brought to the operating room where he was positioned supine on the operating room table. Preoperatively SCDs were connected. (Antibiotics were administered previously on the floor) General anesthesia was then induced. Patient's abdomen was prepped and draped in usual sterile fashion. A formal timeout was conducted to confirm both patient and the procedure. Procedure was begun with a curvilinear infraumbilical incision which was extended deeply down to the level of the fascia. Patient's hernia sac was circumferentially dissected and the overlying umbilical skin was dissected free of the hernia sac. Peritoneal entry was made via the patient's hernia defect. A finger sweep was performed to ensure there were no underlying adhesions and a 12 mm balloon trocar was inserted. Pneumoperitoneum was established at 15 mmHg. Three additional tr ocars (all 5 mm) were placed in the epigastrium and in the right upper quadrant. Inspection of the peritoneum revealed no inadvertent injury to the viscera below. The gallbladder was visualized with evidence of acute inflammation and several attachments to the omentum were stripped down. The gallbladder fundus was then grasped and elevated cephalad but in doing so we encountered more inflammatory change and adherence between the gallbladder body and the antral part of the stomach. Careful dissection was used to separate these 2 structures which was done with relative ease given the acute inflammatory plane. Then, using careful dissection the peritoneum was opened and the structures of the hepatocystic triangle were delineated. Once the critical view of safety was obtained, the cystic duct was singly clipped and partially divided with a ductotomy. A 14 Italian angiocatheter was inserted to the right upper quadrant then a cholangiocatheter was fed into the proximal segment of the cystic duct and clipped into place. Under fluoroscopy a cholangiogram was then obtained showing a standard length cystic duct flowing into a common bile duct with unobstructed antegrade flow of contrast into the duodenum. There was also retrograde flow through the common hepatic duct into the right and left hepatic ducts. Within the common hepatic duct system there appeared to be an air bubble that KVNG ended in the ductwork as the cholangiogram fluoroscopy proceeded. Based on this interpretation the cholangiogram was completed. Satisfied with this result, the cholangiocatheter was withdrawn and the proximal cystic duct was sealed with clips and the cystic duct was completely transected. The same process was used for the cystic artery. The gallbladder was then removed from the gallbladder fossa with the use of electrocautery. Selective electrocautery was used to obtain hemostasis in the gallbladder fossa. The gallbladder was placed in an Endo Catch bag and removed from the peritoneum. Morison's pouch was irrigated and the effluent was suctioned free of the peritoneum. Hemostasis was again confirmed. Pneumoperitoneum was evacuated and the fascia of the 12 mm umbilical port site was cleared of fat and attenuated hernia sac using a combination of blunt dissection electrocautery. Once the fascial edge was circumferentially cleared I undertook closure of the hernia using 0 Ethibond suture in a [id number] technique x 2. An interrupted suture was also required between these 2 index sutures to completely close the fascial gap. Lastly a 4-0 Monocryl suture was used to tack the overlying umbilical skin to the fascial layer. A total of 30 mL of anesthetic was injected at the port sites for postoperative pain control. The skin of each port site was then closed in subcuticular fashion using 4-0 Monocryl. Steri- Strips and bandages were applied as dressings. Patient tolerated the procedure well without any apparent complications. On emergence from their anesthetic the patient was taken to PACU for ongoing recovery. Complications None
[2024-02-22] VITALS (7 sets, daily range): BP systolic 87–130; BP diastolic 54–71; PULSE 54–69; RESP 16–18; TEMP 36.3–37; O2SAT 92–94
[2024-02-22] MEDS: 0.9% Normal Saline (1000mL) 1,000 ML 125 ML IV (06:49)
[2024-02-22] MEDS: Acetaminophen 500 MG Tablet PO (06:57)
--- NOTE | 2024-02-22 08:02 | PCM.DC.SUM ---
Providers Date of Admission: 02/20/24 Primary Care Physician: RASHMI BUCHANAN Reason For Visit: ACUTE CHOLECYSTITIS Diagnosis Discharge Diagnosis (1) Cholecystitis, acute with cholelithiasis: Status: Acute Code(s): K80.00 - Calculus of gallbladder with acute cholecystitis without obstruction (2) Abnormal LFTs (liver function tests): Status: Acute Code(s): R79.89 - Other specified abnormal findings of blood chemistry (3) Conjugated hyperbilirubinemia: Status: Acute Code(s): E80.6 - Other disorders of bilirubin metabolism (4) Umbilical hernia without obstruction and without gangrene: Status: Acute Code(s): K42.9 - Umbilical hernia without obstruction or gangrene Medications at Discharge Home Medications etanercept 50 mg/mL (1 mL) subcutaneous syringe (Enbrel) 50 mg subcut QWEEK 02/20/24 pantoprazole 20 mg tablet,delayed release (Protonix) 20 mg PO DAILY 02/20/24 Hospital Course Operations cholecystecomy (with IOC) and herniorrhaphy (primary repair) Summary of Care Provided Minutes Spent on Discharge: 35 Hospital Course: Patient is a 73 y/o M who presented with 6 hour history abdominal pain in the epigastric region radiating into both upper quadrants. Patient contacted EMS and presented to the ED. CT scan of the ab/pel was obtained demonstrating no acute abnormalities. Abdominal u/s was obtained showing normal gallbladder wall thickness, mild pericholecystic fluid and positive sonographic Shaver's sign. Normal common bile duct. Reading was consistent with acute cholecystitis. Patient was admitted and placed on IV fluids and antibiotics. Dr. Murphy performed a laparoscopic cholecystectomy with intraoperative cholangiogram and primary umbilical hernia repair on 02/21/24. Patient tolerated the procedure well. He had an uneventful hospitalization. Liver enzymes are trending down. Upon discharge, patient was tolerating a regular diet. He denies nausea,vomiting, fever. He is passing flatus and urinating well. Post-operative instructions were reviewed at bedside. Physical Exam Const alert, oriented x3 and no apparent distress HEENT normocephalic and head/scalp atraumatic GI GI Narrative: Abdomen- soft, nontender. Incisions c/d/i. Slight erythema superior to the umbilical incision. No signs of infection. No active oozing noted. Weight / BMI Weight Weight: 213 lb 10.047 oz Body Mass Index (BMI) 31.1 ABG / Lab / Microbiology Data 02/22/24 11:47 02/22/24 07:05 Radiography Diagnostic Testing: Radiology Impression Cholangiogram 02/21/24 13:08 IMPRESSION: Filling defects in the proximal common hepatic ducts concerning for retained stones. Electronically Signed: Shiv Pérez MD at 15:49 EDT Reading Location ID and State: [facility] / [place] Tel , Service support , D/C Instructions Discharge Diet: Light diet - advance as tolerated Discharge Activity: May Not Drive (3-5 days from surgery date) and May Shower (tomorrow) Lifting Restrictions: 15 pounds for 4 weeks Call your doctor if your incision/area has: Continuous Slow Oozing, Sudden Increased Bleeding, Increased Pain/ Swelling, Increased Redness, Foul Smelling Discharge and Swelling at the incision site Call your doctor if you observe: Fever of 101 or Higher Suture Line Care: Avoid Pulling/Pushing and Avoid Pinching/Bending Remove Dressing in: 1 day (Leave umbilical dressing in place for 5 days. Remove all other plastic dressings in 1 day) Cleanse incision/area with: Soap & Water Please Follow Up With: Julio Murphy MD When: Please call to schedule a follow-up at [phone] for 10-14 days after your surgery. You will need to obtain blood work just prior to the follow-up appointment. Order has already been placed. Meaningful Use Info Meaningful Use Meaningful Use Diagnoses (Choose all that apply): None applicable Ischemic Stroke Statin Dosing Therapy Reference: STATIN DOSE THERAPY REFERENCE: * Patients > 75 years receive moderate or high dose statin therapy. * Patients 75 years or YOUNGER should receive HIGH intensity statin dose unless contraindicated. You will be required to document reason for non-treatment if statin daily dose does not meet guidelines. HIGH DOSE STATIN THERAPY DAILY Atorvastatin > than or = to 40 mg Rosuvastatin > than or = to 20 mg Amlodipine + Atorvastatin > than or = to 2.5/40 mg Ezetimibe + Simvastatin 10/80 mg Simvastatin 80mg Discharge Plan Admission Admit Date/Time: 02/20/24 10:27 Primary Reason for Your Visit: Acute cholecystitis with cholelithiasis; umbilical hernia Attending Provider: Julio Murphy Primary Care Provider: RASHMI BUCHANAN Instructions Additional Instructions / Restrictions: Cholecystectomy Diet ? Start light with soups and soft bland foods. You may advance diet as tolerated. Activity ? You may drive in 3-5 days but not while taking narcotic pain medication. ? I encourage walking. You may go up steps, one at a time. ? Do not swim or use hot tubs for 2 weeks. ? For comfort, you may use warm compresses or ice as needed for 15-20 minutes at a time. Lifting ? You may lift up to 15 pounds for 4 weeks. Dressings/Incision ? You may shower OVER your plastic dressings starting tomorrow ? Do NOT tub bathe for 1 week ? Leave plastic dressings on for 1 day. Leave umbilical (belly button) dressing in place for 5 days. ? When plastic dressings are removed, you will find steri strips. It is okay to continue showering with them in place, pat them dry. ? You may remove steri-strips after 1 week. We recommend getting them soaking wet for easier removal. Medications ? Anesthesia used during surgery and pain medications may cause constipation. I recommend initiating on the day of surgery a fiber supplement like, Metamucil, Citrucel, FiberCon, Benefiber, or a generic form of these medications. 1 heaping tablespoon in water daily. You may continue to utilize any bowel regimen or oral laxatives that you routinely take. If you become constipated, we recommend taking Miralax 1 tablespoon daily until return of bowel function is achieved. ? As long as you are not intolerant to Tylenol, acetaminophen, ibuprofen, Motrin, Advil, Aleve, or similar medications, I would recommend transitioning to these [id number]-sxltexy medicines as soon as possible instead of continued use of narcotic pain medication. Follow up ? You should call [facility] soon after surgery, at [phone] option 1 to make a follow up appointment for 10-14 days after your surgery. Discharge Orders/Prescriptions Prescriptions: Continued pantoprazole [Protonix] 20 mg tablet,delayed release (DR/EC) 20 mg PO DAILY Enbrel 50 mg/mL (1 mL) syringe 50 mg subcut QWEEK Other Ambulatory Orders: Comprehensive Metabolic Profil (Routine) Timeframe: [id number] Facility: [facility] - Location: Laboratory Ordered By: Whitney MULLINS Referrals / Follow Up: RASHMI BUCHANAN [Other] RASHMI BUCHANAN [Other] Julio Murphy MD [Med Staff - Active Staff] - (Call for follow-up appointment 10-14 days after your surgery) Disposition Disposition (needs filled in before D/C Order can be placed): Home, Self Care Charges/Coding Visit Charges Inpatient E&M: 85290 Disch Hosp (no charge; post-op)
[2024-02-22 08:16] LABS: ALB/GLOB Ratio 0.9 RATIO (0.9-2.4); AST(SGOT) 102 U/L (15-37); Alanine Aminotransfer ALT/SGPT 190 U/L (16-61); Albumin, Serum 2.8 g/dL (3.2-5.0); Alkaline Phosphatase 71 U/L (45-117); Anion Gap 6 (5-15); BUN 15 mg/dL (7-18); BUN/Creat Ratio 16.7 RATIO (10-20); Calcium,Total 7.8 mg/dL (8.5-10.1); Chloride 111 mmol/L (98-107); EST Glomerular Filtration Rate 89 mL/min (>60); Est Glom Filt Rate - Afr Amer 107 mL/min (>60); Estimated Creatinine Clearance 86.44 ml/min; Glucose 99 mg/dL (74-106); Potassium 4.1 mmol/L (3.5-5.1); Protein, Total 5.8 g/dL (6.4-8.2); Sodium Level 139 mmol/L (136-145)
[2024-02-22] MEDS: Pantoprazole Sodium 40 MG in 0.9% Normal Saline (100mL MB+) 100 ML 330 MG IV (08:44)
[2024-02-22] MEDS: Ceftriaxone 1 GM/50 ML BAG IV (09:47)
--- NOTE | 2024-02-22 12:08 | CASEMGMT ---
LYNN SERRANO Assessment Face to Face with patient for initial transition planning/care coordination assessment. LYNN CM introduced self and role at [facility], pt voices understanding. Pt is A&Ox4 and is resting comfortably in bed and is calm. Care providers, pharmacy, and demographics verified. Admitting dx: Acute Cholecystitis PCP: Flor Guzman Specialists: Mei Damian (Dermatology) Preferred Pharmacy: [facility] During this stay Insurance: AETGoal Zero [facility] Prescription Benefit: Yes LNOK: Susan Rankin (W) Living Arrangements: Pt lives with his in a split level home with a flat entrance. Pt states that there are 6 steps to the lower portion and 8 steps to get to the upper level. 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 Denies all other DME uses or needs HHC/SNF: Denies history or needs Pt?s goal: Home Plan: 6-Click is 24. Pt denies the need for HHC or OP Therapy. Pt states that he wishes to return home once medically ready and states feeling safe doing so. Pt requests advice on dietary recommendations for after DC. LYNN Jonas CM on MS3 made aware and to follow this. This should be included on the pt DC instructions. CM to follow for safe DC from [facility]. Tulio Mandujano RN, CM
[2024-02-22 12:14] LABS: Absolute Lymphocyte Count 2.38 X10^3/uL (0.83-4.51); Absolute Neutrophil Count 8.7 X10^3/uL (2.0-7.7); Basophil# 0.05 X10^3/uL; Basophil% 0.4 % (0-1); Eosinophil# 0.02 X10^3/uL; Eosinophils% 0.2 % (0-5); Hematocrit 38.7 % (40-54); Hemoglobin 12.5 g/dL (13.0-16.5); Lymphocyte # 2.38 X10^3/ul (0.83-4.51); Lymphocyte % 19.4 % (19-41); Mean Corp Hgb Conc 32.3 g/dL (32-36); Mean Corpuscular Hgb 30.2 pg (27.0-32.0); Mean Corpuscular Volume 93.5 fL (80-94); Mean Platelet Vol. 9.9 fl (6.2-12.0); NRBC Flagged by Analyzer 0 % (0-5); Neutrophil # 8.69 X10^3/uL (2.7-7.7); Neutrophil % 70.6 % (47-70); Platelet Count 190 K/mm3 (150-450); RBC Distribution Width SD 47.4 fl (35.1-43.9); Red Blood Count 4.14 M/mm3 (4.6-6.2); White Blood Count 12.3 K/mm3 (4.4-11.0)
--- NOTE | 2024-02-22 12:22 | CASEMGMT ---
Social Work- SW met with pt to discuss advance directives.? Pt confirms he has completed a living will and health care POA naming Susan Rankin, pt .? Pt notified that documents are not on file at [facility] and SW requested they be brought in for scanning into the EMR.? SERGIO Love
== END 2024-02-22 16:39 | disposition home or self-care (01) | DRG 419 ==
LOC: ED 10:56 → MS3 11:22
PROVIDERS: Physician Assistant; Admitting Provider Surgery; Emergency Provider Emergency Medicine; Visit Provider Surgery
PROC: 0FT44ZZ Resection of Gallbladder, Percutaneous Endoscopic Approach (ICD-10-PCS; CPT 47610; principal; 2024-02-21 13:10)
DX: K80.00 Calculus of gallbladder with acute cholecystitis without obstruction (principal); L40.50 Arthropathic psoriasis, unspecified; K42.9 Umbilical hernia without obstruction or gangrene; E80.6 Other disorders of bilirubin metabolism; R79.89 Other specified abnormal findings of blood chemistry
CPT/HCPCS: 36415; 71045; 74177; 74300; 76000; 76705; 80048; 80053; 80076; 81001; 83690; 84484; 85025; 85610; 85730; 88304; 93005; 99285; J7030; Q9967; A4216; J2405; J3490

== ENCOUNTER → 2024-03-02 | Outpatient (CLI) | payer MEDICARE, SELFPAY ==
[2024-03-02 09:14] LABS: AST(SGOT) 24 U/L (15-37); Alanine Aminotransfer ALT/SGPT 38 U/L (16-61); Albumin, Serum 3.8 g/dL (3.2-5.0); Alkaline Phosphatase 72 U/L (45-117); Anion Gap 5 (5-15); BUN 19 mg/dL (7-18); Calcium,Total 9.5 mg/dL (8.5-10.1); Chloride 105 mmol/L (98-107); EST Glomerular Filtration Rate 78 mL/min (>60); Est Glom Filt Rate - Afr Amer 95 mL/min (>60); Globulin 3.7 g/dL (2.2-4.2); Glucose 94 mg/dL (74-106); Potassium 4.1 mmol/L (3.5-5.1); Protein, Total 7.5 g/dL (6.4-8.2); Sodium Level 135 mmol/L (136-145)
== END | disposition home or self-care (01) ==
PROVIDERS: Referring Provider Physician Assistant; Visit Provider Physician Assistant
DX: R94.5 Abnormal results of liver function studies (principal)
CPT/HCPCS: 36415; 80053

== ENCOUNTER 2025-09-06 10:23 | Emergency (ER) | payer MEDICARE, SELFPAY ==
[2025-09-06 10:23] VITALS: BP 122/90; PULSE 71; RESP 14; TEMP 36.6; O2SAT 98; BMI 26.9
--- NOTE | 2025-09-06 10:32 | EDS_ITS ---
HPI History of Present Illness Chief Complaint: Laceration Narrative Narrative: Patient is a 74-year-old male who presents to the emergency department the chief complaint of left thumb laceration. 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 He states that his vaccines are up-to-date including his tetanus shot last 1 being in 2018. Patient denies any blood thinners [facility] Medical History Umbilical hernia without obstruction and without gangrene Ischemic colitis Psoriatic arthritis Home Medications ?Medication ?Instructions ?Recorded ?Last Taken ?Type etanercept 50 mg/mL (1 mL) 50 mg subcut QWEEK 02/20/24 Unknown History subcutaneous syringe (Enbrel) pantoprazole 20 mg tablet,delayed 20 mg PO DAILY 02/19 Unknown History release (Protonix) Allergy/AdvReac Type Severity Reaction Status Date / Time ciprofloxacin Allergy Severe Hives, rash Verified 09/06/25 10:26 clindamycin Allergy Severe Hives Verified 09/06/25 10:26 doxycycline Allergy Severe Hives, rash Verified 09/06/25 10:26 hydromorphone (From Dilaudid) Allergy Severe NEEDS Verified 09/06/25 10:26 FOLLOW-UP clarithromycin (From Biaxin) Allergy Hives Verified 09/06/25 10:26 erythromycin base Allergy Rash Verified 09/06/25 10:26 Penicillins Allergy Rash Verified 09/06/25 10:26 Sulfa (Sulfonamide Allergy Hives Verified 09/06/25 10:26 Antibiotics) Surgical History S/P cholecystectomy S/P umbilical hernia repair, follow-up exam S/P hernia repair S/P appy Social History Smoking Status: Never smoker ROS ROS ED ROS Narrative Neurological: Denies any numbness or tingling Musculoskeletal: Complains of left thumb pain Skin: Complains of left thumb laceration EXAM Physical Exam Narrative Exam Narrative: General: Patient sitting in chair at bedside rest comfortably did not appear to be in acute distress Head: Atraumatic, normocephalic Eyes: PERRL bilaterally, EOMI bilaterally, no conjunctival injection noted Cardiovascular: Regular rate Musculoskeletal: Patient has full flexion and extension of his left thumb no concern for tendon involvement Extremities: Radial pulses +2/4 in the left upper extremity Neurological: Patient follow commands knew that he was at [facility] years 2024 sensation grossly intact in the median ulnar and radial nerve distribution bilaterally Skin: Patient has a proximately 2-1/2 cm laceration on the volar aspect of his left thumb Const Vital Signs: 09/06/25 10:23 Temperature 98 F Temperature Source Temporal Pulse Rate 71 Respiratory Rate 14 Blood Pressure 122/90 H Blood Pressure Mean 100 Pulse Ox 98 Oxygen Delivery Method Room Air MDM MDM MDM Narrative Medical decision making narrative: Patient is a 74-year-old male who presented to the emergency department chief complaint of thumb laceration. On the differential diagnose includes but not limited to thumb laceration, flexor tendon injury although low suspicion for this clinically, nerve injury also have very low suspicion for this clinically based on exam. Patient will have a laceration. See procedure note for separate details. He was vies to keep the area dry and clean and have his sutures removed in approximately 7 to 10 days. He is agreeable this plan all question concerns answered he is discharged home in stable condition. Procedure note Procedure name: Laceration repair Indication: Reduce risk of infection Location: Left thumb laceration 2-1/2 cm simple Preprocedure diagnosis: Laceration Postprocedure diagnosis: Repaired laceration Informed consent was obtained prior to procedure started. Procedure: The appropriate timeout was taken. The area was prepped and draped in usual sterile fashion. Local anesthesia was achieved using 2 cc of lidocaine 1% without epinephrine. Wound was copiously irrigated. 4 4-0 Ethilon interrupted sutures were placed. Estimated blood loss was less than 0.5 mL. Dressing was applied to the area and anticipatory guidance, as well as standard postprocedure care was explained. Return precautions are given. Patient tolerated procedure well without any complications. Follow-up visit for suture removal and evaluation of laceration. Discharge Plan Triage Chief Complaint: Laceration ED Provider: Benjamin Hendrickson Dx/Rx/DC Orders Clinical Impression: Laceration of left thumb Prescriptions: No Action pantoprazole [Protonix] 20 mg tablet,delayed release (DR/EC) 20 mg PO DAILY Enbrel 50 mg/mL (1 mL) syringe 50 mg subcut QWEEK Activity Restrictions/Additional Instructions: Have your doctor remove these sutures in approximately 7 to 10 days. Watch out for signs of infection as we discussed here. You can shower and let warm soapy water run over this do not soak them do not scrub them. Return with worsening symptoms or any concerns Print Language: Georgian Disposition Disposition: Home, Self Care
[2025-09-06] MEDS: Lidocaine 1% (20 ml mdv) 20 ML Vial 10 ML INFILT (10:57)
--- OUTSIDE RECORDS SUMMARY | 2025-09-06 11:00 | XMS RPT_ITS | CCD ---
Author Organization [facility] CliniSyde Care Team Providers Care Pi/Senior Research Associate Name Role Phone Juan J Mcguire Unavailable Rashmi Buchanan Unavailable Tom Belcher DO Primary Care Provider DO Rashmi Buchanan Primary Care Provider [phone] DO Rashmi Buchanan Attending Provider Tom Belcher DO Primary Care Provider [phone] Tom Belcher DO Primary Care Provider [phone] Adela Hoffman Attending Unavailable Basilio Murphy Referring Unavailable Whitney Arnold Attending Unavailable Basilio Murphy Consulting Unavailable Basilio Murphy Admitting Unavailable [id number] Primary Care Unavailable Basilio Murphy Attending Unavailable Sorin MULLINS, Whitney Attending Unavailable Sorin MULLINS, Whitney Referring Unavailable Basilio Murphy Admitting Unavailable Basilio Murphy Attending Unavailable [id number] Primary Care Unavailable Sorin MULLINS, Whitney Attending Unavailable Basilio Murphy Referring Unavailable Rashmi Buchanan MD Primary Care Provider EHSAN CORONADO Attending Unavailable MEI KELLEY Attending Unavailable DARIEN, TOM L Primary Care Unavailable MEI KELLEY Attending Unavailable DARIEN TOM L Primary Care Unavailable Rashmi Buchanan DO Primary Care Provider Erickson Colunga MD Attending Provider Erickson Colunga MD Other Provider [phone] Erickson Colunga Admitting Unavailable Rafaela Buchanananne B Primary Care Unavailable Erickson Colunga Attending Unavailable Rafaela Buchananannjeannine Antunez Attending Unavailable Thomas Rashmi B Primary Care Unavailable Rashmi Buchanan Admitting Unavailable Rashmi Buchanan DO Primary Care Provider Whitney Woods APRN Attending Provider Allergies Allergy Classification Reported Allergen(s) Allergy Type Date of Onset Reaction(s) Facility Doxycycline (1 source) Doxycycline Drug Allergy 03-02-20 [facility] Repository Lincosamides (antibiotic) (1 source) Clindamycin Drug Allergy 03-02-20 [facility] Macrolides (antibiotic) (2 sources) Erythromycin; Translations: [clarithromycin] Drug Allergy 03-02-20 [facility] Repository Opioid Agonists (1 source) HYDROmorphone Drug Allergy 03-02-20 [facility]ository Penicillins (antibiotic) (1 source) Penicillins Drug Allergy 03-02-20 [facility] Repository Quinolones (antibiotic) (1 source) Ciprofloxacin Drug Allergy 03-02-20 [facility] Repository Sulfonamides (antibiotic) (1 source) Sulfonamides (Antibiotic) Drug Allergy 03-02-20 [facility] (20 sources) Cefuroxime; Translations: [CEFUROXIME] Drug Allergy 08-10-20 [facility] (20 sources) Ciprofloxacin; Translations: [CIPROFLOXACIN] Drug Allergy 08-10-20 [facility] (20 sources) Clarithromycin; Translations: [CLARITHROMYCIN] Drug Allergy 09-20-20 [facility] (20 sources) Erythromycin; Translations: [ERYTHROMYCIN] Drug Allergy 09-20-20 [facility] (7 sources) Hmg-Coa Reductase Inhibitors (Statins) Drug allergy Unknown, increased heart rate [facility] Other (20 sources) HYDROmorphone; Translations: [HYDROMORPHONE] Drug Allergy 02-06-20 15 Other: See [facility] (20 sources) moxifloxacin; Translations: [MOXIFLOXACIN] Drug Allergy 08-10-20 [facility] (20 sources) Penicillin V; Translations: [PENICILLIN V] Drug Allergy 08-10-20 [facility] (20 sources) Sulfacetamide; Translations: [SULFACETAMIDE] Drug Allergy 08-10-20 [facility] (13 sources) HMG-CoA reductase inhibitor; Translations: [BFCAKYG-NMU-NVY REDUCTASE INHIBITORS] Drug Allergy 08-10-20 22 Unknown [facility] (13 sources) HYDROmorphone; Translations: [HYDROMORPHONE (BULK)] Drug Allergy 02-06-20 15 Other: See Comments [facility] (16 sources) Penicillins; Translations: [PENICILLINS] Propensity to adverse reactions 09-20-20 [facility] (18 sources) Sulfonamides (Antibiotic); Translations: [SULFA (SULFONAMIDE ANTIBIOTICS)] Propensity to adverse reactions 09-20-20 [facility] (4 sources) erythromycin base; Translations: [erythromycin base] Allergy to substance 09-02-20 [facility] (3 sources) HMG-CoA reductase inhibitor Drug allergy increased heart rate [facility] Other (2 sources) Penicillin Drug Allergy [facility] Other (1 source) Penicillins Allergy to substance 02-20-20 [facility] (1 source) Sulfonamides (Antibiotic) Allergy to substance 02-20-20 [facility] (2 sources) Clarithromycin Allergy to substance 09-20-20 [facility] (2 sources) Penicillin G Drug Allergy 08-27-20 [facility] (2 sources) Phenytoin Drug Allergy 08-27-20 [facility] (3 sources) Zhyxepm-OHQ-AvH Reductase Inhibitor; Translations: [Krksedn-JLO-WcQ Reductase Inhibitor] Allergy to substance 05-14-20 increased heart rate [facility] (1 source) Cefuroxime Drug Allergy 05-14-20 [facility] (1 source) Clarithromycin Drug Allergy 05-14-20 [facility] (1 source) HYDROmorphone Drug Allergy 05-14-20 [facility] (1 source) moxifloxacin Drug Allergy 05-14-20 [facility] (1 source) Penicillins Drug allergy (disorder) 05-14-20 [facility] (1 source) Sulfacetamide Drug Allergy 05-14-20 [facility] (1 source) Sulfonamides (Antibiotic) Drug allergy (disorder) 05-14-20 [facility] Rep[facility] Medications Current Medications Medication Drug Class(es) Dates Sig (Normalized) Sig (Original) betamethasone 0.0005 mg/mg topical ointment (14 sources) Corticosteroid Start: 08-08-2021 End: 02-02-2024 betamethasone dipropionate 0.05 % ointment Indications: Psoriasis Apply to affected area two times a day. 45 g 3 02/02/2024 Active Comment on above: Apply to affected ar ea twice daily. calcitriol 0.004624 mg/mg topical ointment (18 sources) Vitamin D3 Analog Start: 08-26-2023 Calcitriol 3 MCG/GM cream APPLY TO AFFECTED AREA(S) SPARINGLY EVERY NIGHT AT BEDTIME 08/26/2023 Active Start: 08-08-2021 End: 08-28-2024 Calcitriol 3 mcg/gram oint I ndications: Psoriasis APPLY TO AFFECTED AREA(S) SPARINGLY EVERY NIGHT AT BEDTIME 60 g 11 08/28/2024 Active Comment on above: APPLY TO AFFECTED AR EA(S) SPARINGLY EVERY NIGHT AT BEDTIME Claritin-D 12 Hour 5-120 MG (3 sources) take 5-120 mg by mouth every twelve hours as needed Claritin-D 12 Hour 5-120 MG 1 tablet as needed Orally every 12 hrs prn Active Codeine / guaiFENesin (16 sources) Opioid Agonist Start: 04-05-2023 take 10 mL by mouth every six hours as needed Cheratussin AC 100-10 MG/5ML 10 ml Orally every 6 hrs as needed for 5 days Mar, Active Start: 10-30-2021 codeine-guaiFE Nesin (ROBITUSSIN AC) 10-100 mg/5 mL syrup Take by mouth. 10/30/2021 Active Start: 10-30-2021 take 5 mL by mouth e very four hours guaiFENesin-Codeine 100-10 MG/5ML 5 ml Orally every 4 hrs for 7 days Oct, Active Start: 10-30-2021 take 10 mL by mouth every six hours as needed guaiFENesin-Codeine 100-10 MG/5ML 10 ml as needed Orally every 6 hrs for 7 days Oct, Active Start: 10-30-2021 take 10 mL by mouth every six hours as needed Cheratussin AC 100-10 MG/5ML 10 ml Orally every 6 hrs as needed for 7 days Oct, Active Comment on above: Take by mouth. doxycycline hyclate 100 mg oral tablet (1 source) Tetracycline-cla ss Drug Start: 04-05-20 take 1 tablet by mouth every twelve hours Doxycycline Hyclate 100 mg 1 tablet Orally Twice a day for 10 day(s) Mar, Active Enbrel 50 MG/ML (10 sources) inject 0.5 mL by subcutaneous injection every week Enbrel 50 MG/ML 0.5 ml Subcutaneous once weekly for 30 day(s) Active 1 ml etanercept 50 mg/ml prefilled syringe (20 sources) Tumor Necrosis Factor Sujata Start: 03-10-20 End: 04-09-20 inject 1 mL by subcutaneous injection two times weekly Etanercept (ENBREL) 50 mg/mL (1 mL) injection Inject 1 mL subcutaneously two times a week. 24 mL 3 04/09/2024 04/09/2025 Active Start: 06-03-2023 inject 50 mg by subc utaneous injection every week Enbrel 50 MG/ML injection INJECT 50 MG (1 ML) UNDER THE SKIN ONCE A WEEK 06/03/2023 Active Start: 09-02-2021 End: 09-21-2024 inject 50 mg by subcutaneous injection every week Etanercept (Enbrel) 50 mg/mL (1 mL) syringe Discontinued 50 MG SUBCUT every week September 02, 2021 12:00am September 21, 2024 10:43am takes every Wednesday Comment on above: INJECT 50 MG (1 ML) UNDER THE SKIN ONCE A WEEK Inject subcutaneousl y. loratadine 10 mg oral tablet (2 sources) Start: 024 take 1 tablet by mouth once daily as needed Loratadine 10 mg tablet Active 10 MG PO Daily as needed for allergic symptoms September 21, 2024 12:00am Complies with drug therapy pantoprazole 40 mg delayed release oral tablet (20 sources) Proton Pump Inhibitor Start: 025 take 1 tablet by mouth once daily as needed for gastroesophageal reflux disease Pantoprazole 40 mg tablet,delayed release (DR/EC) Active 0 .ROUTE .COMPLEX 90 0 June 25, 2025 6:56am TAKE 1 TABLET BY MOUTH DAILY NEEDED FOR GERD Complies with drug therapy Start: 02-20-2024 take 1 tablet by mouth once da levi Pantoprazole (Protonix) 20 mg tablet,delayed release (DR/EC) Active 20 MG PO DAILY February 20, 2024 12:00am Start: 05-11-2022 pantoprazole D R (PROTONIX) 40 mg tablet Start: 09-02-2021 End: 06-25-2025 take 1 tablet by mouth once daily as needed for gastroesophageal reflux disease Pantoprazole 40 mg tablet,delayed release (DR/EC) Discontinued 40 MG PO Daily as needed for gerd 90 3 March 20, 2024 2:00pm June 25, 2025 6:56am PANTOPRAZOLE SOD IUM (PROTONIX ORAL) Take by mouth. Active PANTOPRAZOLE SOD IUM (PROTONIX ORAL) Take by mouth. 0 Active Comment on above: Take by mouth. Take by mouth q 24 H R. Risankizumab-Rzaa (2 sources) Start: 09-21-2024 Risankizumab-R zaa (Skyrizi) 150 mg/mL pen injector Active 150 MG SUBCUT EVERY 12 WEEKS September 21, 2024 12:00am Complies with drug therapy Start: 09-21-2024 Risankizumab-R zaa (Skyrizi) 150 mg/mL pen injector Active 150 MG SUBCUT EVERY 12 WEEKS September 21, 2024 1:00am Complies with drug therapy risankizumab-rzaa (SKYRIZI) 150 mg/mL injection (2 sources) Start: 08-28-2024 risankizumab-r zaa (SKYRIZI) 150 mg/mL injection Indications: Psoriasis Loading dose: Inject 150 mg at week 0 and week 4. 2 mL 08/28/2024 Active risankizumab-rzaa (SKYRIZI) 150 mg/mL injection (2 sources) Start: 08-28-2024 risankizumab-r zaa (SKYRIZI) 150 mg/mL injection Indications: Psoriasis Inject 1 mL subcutaneously every 12 weeks. 1 mL 3 08/28/2024 Active Vitamin D 25 MCG (1000 UT) (4 sources) take 1 tablet by mouth once daily Vitamin D 25 MCG (1000 UT) 1 tablet Orally Once a day Active Completed/Discontinued Medications Medication Drug Class(es) Dates Sig (Normalized) Sig (Original) cholecalciferol 0.05 mg oral tablet (20 sources) Vitamin D Start: 09-21-2024 End: 05-14-2025 take 1 tablet by mouth once daily Cholecalciferol (Vitamin D3) (Vitamin D3) 50 mcg (2,000 unit) tablet Discontinued 2000 UNIT PO Daily September 21, 2024 10:42am May 14, 2025 7:07am Start: 09-02-2021 End: 09-21-2024 take 1 tablet by mouth once daily Cholecalciferol (Vitamin D3) (Vitamin D3) 50 mcg (2,000 unit) Tablet Discontinued 50 MCG PO Daily September 02, 2021 12:00am September 21, 2024 10:43am cholecalciferol (Vitamin D-3) 25 MCG (1000 UT) tablet Take by mouth 1 (one) time each day at the same time. Active cholecalciferol (VITAMIN D3) 1,000 unit tab tablet Take by mouth q 24 HR. Active Comment on above: Take by mouth q 24 H R. 12 hr loratadine 5 mg / pseudoephedrine sulfate 120 mg extended release oral tablet (20 sources) alpha-Adrenergic Agonist Start: End: take 1 tablet by mouth every twelve hours as needed Loratadine-Pseudoephe drine 5-120 mg tablet extended release 12 hr Discontinued 1 TAB PO Every 12 hours January 16, 2024 11:00pm September 21, 2024 10:43am [employer] tablet as needed Orally every 12 hrs; Note: Source Status: Not-Taking\PRNprn; Provider: Thomas Caraballo ( ) loratadine-pseud oephedrine ER (Claritin-D 12-hour) 5-120 MG 12 hr tablet Take by mouth every 12 (twelve) hours. Active Comment on above: Take by mouth q 12 H R. traMADol hydrochloride 50 mg oral tablet (3 sources) Opioid Agonist Start: 09-05-20 End: 01-17-20 take 1 tablet by mouth every four hours as needed for pain Tramadol 50 mg tablet Discontinued 50 MG PO Q4H as needed for pain 20 7 0 September 05, 2021 7:23am January 17, 2024 10:46am History of carpal tunnel release Other specified postprocedural states triamcinolone acetonide 10 mg/ml injectable suspension (1 source) Corticosteroid Start: 08-10-20 End: 08-10-20 triamcinolone acetonide 5 mg injection (KeNALog 10) Problems Active Problems Problem Classification Problem Date Documented Date Episodic/Chronic Abdominal hernia (3 sources) Umbilical hernia; Translations: [Umbilical hernia without obstruction or gangrene] Onset: 03-02-2024 02-20-2024 Episodic Abdominal pain (3 sources) Epigastric pain; Translations: [Epigastric pain] Onset: 03-02-2024 02-20-2024 Episodic Biliary tract disease (5 sources) Calculus of gallbladder with acute cholecystitis; Translations: [Calculus of gallbladder with acute cholecystitis without obstruction] Onset: 03-02-2024 02-20-2024 Episodic Cataract (3 sources) Bilateral age-related nuclear cataracts; Translations: [Age-related nuclear cataract, bilateral] Onset: 08-27-2023 08-27-2023 Chronic Disorders of lipid metabolism (15 sources) Hyperlipidemia; Translations: [Hyperlipidemia, unspecified] Onset: 09-16-2021 Resolved: 09-16-2021 Chronic Esophageal disorders (16 sources) Gastroesophageal reflux disease; Translations: [Gastro-esophageal reflux disease without esophagitis] Onset: 09-16-2021 Resolved: 05-11-2022 Chronic Inflammation; infection of eye (except that caused by tuberculosis or sexually transmitteddisease) (3 sources) Blepharitis of upper and lower eyelids of bilateral eyes; Translations: [Unspecified blepharitis right eye, upper and lower eyelids] Onset: 08-27-2023 08-27-2023 Episodic Noninfectious gastroenteritis (10 sources) Colitis; Translations: [Noninfective gastroenteritis and colitis, unspecified] Episodic Nutritional deficiencies (15 sources) Vitamin D deficiency; Translations: [Vitamin D deficiency, unspecified] Onset: 09-16-2021 Resolved: 09-16-2021 Chronic Other eye disorders (3 sources) Dry eyes; Translations: [Dry eye syndrome of bilateral lacrimal glands] Onset: 08-27-2023 08-27-2023 Episodic Other inflammatory condition of skin (19 sources) Psoriasis; Translations: [Psoriasis, unspecified] Onset: 09-20-2006 Chronic Other inflammatory condition of skin (12 sources) Psoriasis vulgaris; Translations: [Psoriasis vulgaris] Onset: 08-03-2017 08-03-2017 Chronic Other inflammatory condition of skin (4 sources) Psoriatic arthritis; Translations: [Arthropathic psoriasis, unspecified] 02-20-2024 Chronic Other inflammatory condition of skin (1 source) Psoriasis, unspecified; Translations: [Psoriasis] Onset: 02-28-2025 Chronic Other inflammatory condition of skin (1 source) Itching of skin; Translations: [Pruritus, unspecified] Episodic Other nervous system disorders (12 sources) Carpal tunnel syndrome of right wrist; Translations: [Carpal tunnel syndrome, right upper limb] 09-21-2024 Chronic Other nervous system disorders (3 sources) Carpal tunnel syndrome, right upper limb; Translations: [Right carpal tunnel syndrome G56.01] Onset: 07-07-2021 Resolved: 09-15-2021 Chronic Other nutritional; endocrine; and metabolic disorders (1 source) Conjugated hyperbilirubinemia; Translations: [Other disorders of bilirubin metabolism] 02-20-2024 Chronic Other nutritional; endocrine; and metabolic disorders (2 sources) Other disorders of bilirubin metabolism; Translations: [Disorders of bilirubin excretion] Onset: 03-02-2024 02-20-2024 Chronic Other screening for suspected conditions (not mental disorders or infectious disease) (7 sources) Patient encounter status; Translations: [Encounter for screening for malignant neoplasm of skin] Onset: 03-02-2024 08-26-2023 Episodic Other upper respiratory infections (2 sources) Acute upper respiratory infection, unspecified; Translations: [Acute sinusitis, unspecified] Onset: 12-31-2021 Resolved: 12-31-2021 Episodic Peripheral and visceral atherosclerosis (2 sources) Ischemic colitis; Translations: [Vascular disorder of intestine, unspecified] 09-21-2024 Chronic Retinal detachments; defects; vascular occlusion; and retinopathy (3 sources) Epiretinal membrane of right eye; Translations: [Puckering of macula, right eye] Onset: 08-27-2023 08-27-2023 Chronic Past or Other Problems Problem Classification Problem Date Documented Date Episodic/Chronic Allergic reactions (20 sources) Allergy to drug; Translations: [Allergy status to unspecified drugs, medicaments and biological substances status] Onset: 04-10-2008 04-10-2008 Episodic Chronic obstructive pulmonary disease and bronchiectasis (1 source) Bronchitis, not specified as acute or chronic Onset: 10-30-2021 Resolved: 10-30-2021 Episodic Headache; including migraine (12 sources) Headache; Translations: [Headache] Onset: 12-13-2007 12-13-2007 Episodic Other aftercare (1 source) Encounter for removal of sutures Onset: 09-15-2021 Resolved: 09-15-2021 Episodic Other connective tissue disease (2 sources) Pain in right hand; Translations: [Right hand pain M79.641] Onset: 07-07-2021 Resolved: 08-29-2021 Episodic Other connective tissue disease (12 sources) Synovial cyst; Translations: [Other bursal cyst, unspecified site] Onset: 08-13-2015 08-13-2015 Episodic Other skin disorders (13 sources) Actinic keratosis; Translations: [Actinic keratosis] Onset: 02-21-2007 02-21-2007 Episodic Other skin disorders (13 sources) Seborrheic keratosis; Translations: [Other seborrheic keratosis] Onset: 01-17-2013 01-17-2013 Episodic Residual codes; unclassified (1 source) Other specified postprocedural states Onset: 09-15-2021 Resolved: 09-15-2021 Episodic Unclassified (2 sources) Cough R05.9 Onset: 12-31-2021 Resolved: 12-31-2021 Results Test Name Value Interpretation Reference Range Facility [facility] Text Normal [facility] CNOVon 02-28-2025 CNOV Office Visit (DERMCC ) BASILIO RANKIN ([id number]) 1950 M Date Time Provider Department 02/28/25 11:00 AM MEI KELLEY DERMLUCRECIA During your visit today, we recorded the following information about you: Mei Kelley MD 02/28/2025 6:34 PM Signed Basilio is a 74-year-old male with a history of psoriasis, presenting for follow-up. Basilio reports significant improvement in psoriasis symptoms since starting Skyrizi, stating, It's like I never had it. He notes that his skin is clear, with only one small spot on his side that is barely noticeable. He expresses satisfaction with the treatment, stating, I feel like a whole new person. He also reports a reduction in joint pain, describing it as almost like it's going into remission. Basilio was previously on Enbrel for over 25 years but believes its efficacy waned over time. He is currently on Skyrizi, administered once every 12 weeks, and reports no side effects. He denies the need for topical creams and is pleased with the convenience of the current treatment regimen. Basilio also mentions that his blood pressure is consistently around 120/70 mmHg, and his cholesterol levels are well-managed, with total cholesterol way under the 200 kalyn. He is satisfied with his current insurance coverage for Skyrizi, noting that it is about 30% less expensive than Enbrel due to a discount program. IMPRESSION/PLAN: PSORIASIS Left Abdomen (side) - Lower, Left Hand - Posterior, Left Knee - Anterior, Left Lower Back, Left Lower Leg - Anterior, Right Hand - Posterior, Right Knee - Anterior, Right Lower Back, Right Lower Leg - Anterior BSA 40% on Enbrel for 20 years, now flaring despite Enbrel 50 mg once weekly. Advised switching to IL-23 inhibitor. See orders for details. Related Medications betamethasone dipropionate 0.05 % ointment Apply to affected area two times a day. Calcitriol 3 mcg/gram oint APPLY TO AFFECTED AREA(S) SPARINGLY EVERY NIGHT AT BEDTIME risankizumab-rzaa (SKYRIZI) 150 mg/mL injection Loading dose: Inject 150 mg at week 0 and week 4. risankizumab-rzaa (SKYRIZI) 150 mg/mL injection Inject 1 mL subcutaneously every 12 weeks. HPI: Mr. Rankin returns for f/u of psoriasis. Condition is much improved. Patient has no complaints. Patient is happy with results. Patient does have joint pain. Current treatment consists of: risankizumab-rzaa (SKYRIZI) 150 mg/mL injection Calcitriol 3 mcg/gram ointment betamethasone dipropionate 0.05 % ointment REVIEW OF SYSTEMS: Musculoskeletal: (-) joint pain Skin: (+) small lesion on side PE: Patient is alert and oriented in no acute distress. General: Well-nourished, well-developed. Left Abdomen (side) - Lower, Left Hand - Posterior, Left Knee - Anterior, Left Lower Back, Left Lower Leg - Anterior, Right Hand - Posterior, Right Knee - Anterior, Right Lower Back, Right Lower Leg - Anterior Minimal psoriatic lesions, small lesion on side, otherwise clear. PSORIASIS Left Abdomen (side) - Lower, Left Hand - Posterior, Left Knee - Anterior, Left Lower Back, Left Lower Leg - Anterior, Right Hand - Posterior, Right Knee - Anterior, Right Lower Back, Right Lower Leg - Anterior BSA 40% was on Enbrel; now BSA is 1% on Skyrizi. 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 - Previously on Enbrel for over 25 years with decreased efficacy over time. - Educated patient on the enzyme inhibition mechanism of Skyrizi, explaining its role in reducing inflammation associated with both skin and joint manifestations of psoriasis. - Discussed the importance of managing cardiovascular risk factors, including blood pressure and cholesterol levels, as psoriasis is a known cardiac risk factor. - Patient's blood pressure is well-controlled at 120/70 mmHg, and cholesterol levels are reportedly below 200 mg/dL. - Informed patient about studies showing decreased cardiac plaque formation with biologics like Humira, and the potential benefits of Skyrizi in overall health. - Patient is satisfied with current treatment and cost-effectiveness of Skyrizi compared to Enbrel. - Will renew Skyrizi prescription upon request; patient to contact nurse for renewal. - Scheduled follow-up in 6 months with blood work to be done prior to the appointment. Related Medications betamethasone dipropionate 0.05 % ointment Apply to affected area two times a day. Calcitriol 3 mcg/gram oint APPLY TO AFFECTED AREA(S) SPARINGLY EVERY NIGHT AT BEDTIME risankizumab-rzaa (SKYRIZI) 150 mg/mL injection Loading dose: Inject 150 mg at week 0 and week 4. risankizumab-rzaa (SKYRIZI) 150 mg/mL injection Inject 1 mL subcutaneously every 12 weeks. PSORIASIS (more content not included)... Normal [facility] Complete Blood Count Auto Di ffon 09-12-2024 Basophils (Bld) [#/Vol] 0.1 10*3/uL Normal 0.0-0.2 [facility] Comment on above: Order Comment: Reaso n for Exam Medicare annual wellness visit, subsequent;GERD (gastroesoph Result Comment: PERF ORMED BY: [place] [address] PATHOLOGIST TRAVELING AUDITOR SHEREEN DOLAN M.D. Performed By: #### C BC #### [place] [address] [place] Basophils/100 WBC (Bld) 0.9 % Normal . [facility] Comment on above: Order Comment: Reaso n for Exam Medicare annual wellness visit, subsequent;GERD (gastroesoph Performed By: #### C BC #### [place] [address] [place] Eosinophils (Bld) [#/Vol] 0.3 10*3/uL Normal 0.0-0.45 [facility] Comment on above: Order Comment: Reaso n for Exam Medicare annual wellness visit, subsequent;GERD (gastroesoph Performed By: #### C BC #### [address] Eosinophils/100 WBC (Bld) 3.5 % Normal . [facility] Comment on above: Order Comment: Reaso n for Exam Medicare annual wellness visit, subsequent;GERD (gastroesoph Performed By: #### C BC #### [address] Erythrocyte distribution width (RBC) [Ratio] 13.5 % Normal 12.0-14.8 [facility] Comment on above: Order Comment: Reaso n for Exam Medicare annual wellness visit, subsequent;GERD (gastroesoph Performed By: #### C BC #### [address] Hematocrit (Bld) [Volume fraction] 45.9 % Normal 38.8-50.0 [facility] Comment on above: Order Comment: Reaso n for Exam Medicare annual wellness visit, subsequent;GERD (gastroesoph Performed By: #### C BC #### [address] Hemoglobin (Bld) [Mass/Vol] 15.4 g/dL Normal 13.0-17.0 [facility] Comment on above: Order Comment: Reaso n for Exam Medicare annual wellness visit, subsequent;GERD (gastroesoph Performed By: #### C BC #### [address] Lymphocytes (Bld) [#/Vol] 3.5 10*3/uL Normal 1.00-4.8 [facility] Comment on above: Order Comment: Reaso n for Exam Medicare annual wellness visit, subsequent;GERD (gastroesoph Performed By: #### C BC #### [address] Lymphocytes/100 WBC (Bld) 44.7 % Normal . [facility] Comment on above: Order Comment: Reaso n for Exam Medicare annual wellness visit, subsequent;GERD (gastroesoph Performed By: #### C BC #### [address] MCH (RBC) [Entitic mass] 30.7 pg Normal 27.5-35.2 [facility] Comment on above: Order Comment: Reaso n for Exam Medicare annual wellness visit, subsequent;GERD (gastroesoph Performed By: #### C BC #### [address] MCV (RBC) [Entitic vol] 91.8 fL Normal 83.5-101 T [facility] Comment on above: Order Comment: Reaso n for Exam Medicare annual wellness visit, subsequent;GERD (gastroesoph Performed By: #### C BC #### [address] Mean Corpuscular HGB Conc 33.5 g/dL Normal 32.5-35.6 [facility] Comment on above: Order Comment: Reaso n for Exam Medicare annual wellness visit, subsequent;GERD (gastroesoph Performed By: #### C BC #### [facility] [address] [place] [address] [place] Monocytes (Bld) [#/Vol] 0.8 10*3/uL Normal 0.0-0.8 [facility] Comment on above: Order Comment: Reaso n for Exam Medicare annual wellness visit, subsequent;GERD (gastroesoph Performed By: #### C BC #### [facility] [address] [place] [address] [place] Monocytes/100 WBC (Bld) 10.9 % Normal . [facility] Comment on above: Order Comment: Reaso n for Exam Medicare annual wellness visit, subsequent;GERD (gastroesoph Performed By: #### C BC #### [address] Neutrophils (Bld) [#/Vol] 3.1 10*3/uL Normal 1.8-7.7 [facility] Comment on above: Order Comment: Reaso n for Exam Medicare annual wellness visit, subsequent;GERD (gastroesoph Performed By: #### C BC #### [address] Neutrophils/100 WBC (Bld) 40.0 % Normal . [facility] Comment on above: Order Comment: Reaso n for Exam Medicare annual wellness visit, subsequent;GERD (gastroesoph Performed By: #### C BC #### [address] NRBC% 0.0 /100{WBC} Normal 0-0.5 [facility] Comment on above: Order Comment: Reaso n for Exam Medicare annual wellness visit, subsequent;GERD (gastroesoph Performed By: #### C BC #### [facility] [address] [place] [address] [place] Platelet mean volume (Bld) [Entitic vol] 8.5 fL Normal 6.6-10.1 [facility] Comment on above: Order Comment: Reaso n for Exam Medicare annual wellness visit, subsequent;GERD (gastroesoph Performed By: #### C BC #### [place] [address] Platelets (Bld) [#/Vol] 217 10*3/uL Normal 150-450 [facility] Comment on above: Order Comment: Reaso n for Exam Medicare annual wellness visit, subsequent;GERD (gastroesoph Performed By: #### C BC #### [address] RBC (Bld) [#/Vol] 5.00 10*6/uL Normal 3.90-5.60 [facility] Comment on above: Order Comment: Reaso n for Exam Medicare annual wellness visit, subsequent;GERD (gastroesoph Performed By: #### C BC #### [address] WBC (Bld) [#/Vol] 7.7 10*3/uL Normal 4.1-10.5 [facility] Comment on above: Order Comment: Reaso n for Exam Medicare annual wellness visit, subsequent;GERD (gastroesoph Performed By: #### C BC #### [address] Comprehensive Metabolic Pane sarah 09-12-2024 Albumin [Mass/Vol] 4.1 g/dL Normal 3.5-5.7 [facility] Comment on above: Order Comment: Reaso n for Exam Medicare annual wellness visit, subsequent;GERD (gastroesoph Performed By: #### V [id number], TSH3 wRFLX, LIPID, CMP #### [address] Albumin/Globulin [Mass ratio] 1.6 {ratio} Normal [facility] Comment on above: Order Comment: Reaso n for Exam Medicare annual wellness visit, subsequent;GERD (gastroesoph Performed By: #### V [id number], TSH3 wRFLX, LIPID, CMP #### [address] ALP [Catalytic activity/Vol] 41 U/L Normal 34-104 [facility] Comment on above: Order Comment: Reaso n for Exam Medicare annual wellness visit, subsequent;GERD (gastroesoph Performed By: #### V [id number], TSH3 wRFLX, LIPID, CMP #### [facility] [address] [place] [id number] [place] ALT [Catalytic activity/Vol] 22 U/L Normal 7-52 [facility] Comment on above: Order Comment: Reaso n for Exam Medicare annual wellness visit, subsequent;GERD (gastroesoph Performed By: #### V [id number], TSH3 wRFLX, LIPID, CMP #### [facility] [address] [place] [phone] [place] Anion gap [Moles/Vol] 8.7 mmol/L Normal 6.0-15.0 [facility] Comment on above: Order Comment: Reaso n for Exam Medicare annual wellness visit, subsequent;GERD (gastroesoph Performed By: #### V [id number], TSH3 wRFLX, LIPID, CMP #### [facility] [address] [place] [phone] [place] AST [Catalytic activity/Vol] 27 U/L Normal 13-39 [facility] Comment on above: Order Comment: Reaso n for Exam Medicare annual wellness visit, subsequent;GERD (gastroesoph Performed By: #### V [id number], TSH3 wRFLX, LIPID, CMP #### [facility] [address] [place] [phone] [place] Bilirubin [Mass/Vol] 1.5 mg/dL High 0.3-1.0 [facility] Comment on above: Order Comment: Reaso n for Exam Medicare annual wellness visit, subsequent;GERD (gastroesoph Result Comment: [facility] who have taken Naproxen have shown spurious elevation in Total Bilirubin levels. A metabolite of Naproxen, O-desmethylnaproxen, has been shown to interfere with the Jendrassik-Grof method for measuring Total Bilirubin. Performed By: #### V [id number], TSH3 wRFLX, LIPID, CMP #### [facility] [address] [place] [phone] [place] Calcium [Mass/Vol] 9.5 mg/dL Normal 8.6-10.3 [facility] Comment on above: Order Comment: Reaso n for Exam Medicare annual wellness visit, subsequent;GERD (gastroesoph Performed By: #### V [id number], TSH3 wRFLX, LIPID, CMP #### [facility] [address] Chloride [Moles/Vol] 105 mmol/L Normal 98-107 [facility] Comment on above: Order Comment: Reaso n for Exam Medicare annual wellness visit, subsequent;GERD (gastroesoph Performed By: #### V [id number], TSH3 wRFLX, LIPID, CMP #### [facility] [address] CO2 [Moles/Vol] 27.9 mmol/L Normal 21.0-31.0 [facility] Comment on above: Order Comment: Reaso n for Exam Medicare annual wellness visit, subsequent;GERD (gastroesoph Performed By: #### V [id number], TSH3 wRFLX, LIPID, CMP #### [facility] [address] Creatinine [Mass/Vol] 0.97 mg/dL Normal 0.70-1.30 [facility] Comment on above: Order Comment: Reaso n for Exam Medicare annual wellness visit, subsequent;GERD (gastroesoph Performed By: #### V [id number], TSH3 wRFLX, LIPID, CMP #### [facility] [address] GFR/1.73 sq M.predicted MDRD (S/P/Bld) [Vol rate/Area] mL/min/{1.73_m2} Normal [facility] Comment on above: Order Comment: Reaso n for Exam Medicare annual wellness visit, subsequent;GERD (gastroesoph Performed By: #### V [id number], TSH3 wRFLX, LIPID, CMP #### [facility] [address] [place] [address] [place] Globulin (S) [Mass/Vol] 2.6 g/dL Normal T [facility] Comment on above: Order Comment: Reaso n for Exam Medicare annual wellness visit, subsequent;GERD (gastroesoph Performed By: #### V [id number], TSH3 wRFLX, LIPID, CMP #### [facility] [address] Glucose [Mass/Vol] 79 mg/dL Normal 70-100 [facility] Comment on above: Order Comment: Karinao n for Exam Medicare annual wellness visit, subsequent;GERD (gastroesoph Result Comment: [facility] Glucose Reference Range is dependent on time and content of last meal. Glucose of more than 200 mg/dL in a nonstressed, ambulatory subject supports the diagnosis of Diabetes Mellitus. ADA recommended reference range Performed By: #### V [id number], TSH3 wRFLX, LIPID, CMP #### [facility] [address] [place] [address] [place] Potassium [Moles/Vol] 4.6 mmol/L Normal 3.5-5.1 [facility] Comment on above: Order Comment: Reaso n for Exam Medicare annual wellness visit, subsequent;GERD (gastroesoph Result Comment: Hemo lysis is present at a level that could interfere with the result. Contact lab if redraw is required Performed By: #### V [id number], TSH3 wRFLX, LIPID, CMP #### [place] [address] [place] Protein [Mass/Vol] 6.7 g/dL Normal 6.4-8.9 [facility] Comment on above: Order Comment: Reaso n for Exam Medicare annual wellness visit, subsequent;GERD (gastroesoph Performed By: #### V [id number], TSH3 wRFLX, LIPID, CMP #### [place] [phone] [place] Sodium [Moles/Vol] 137 mmol/L Normal 136-145 [facility] Comment on above: Order Comment: Reaso n for Exam Medicare annual wellness visit, subsequent;GERD (gastroesoph Performed By: #### V [id number], TSH3 wRFLX, LIPID, CMP #### [facility] [address] [place] [phone] [place] Urea nitrogen [Mass/Vol] 20 mg/dL Normal 7-25 [facility] Comment on above: Order Comment: Reaso n for Exam Medicare annual wellness visit, subsequent;GERD (gastroesoph Performed By: #### V [id number], TSH3 wRFLX, LIPID, CMP #### [facility] [address] [place] [address] [facility] Lipid Panelon 09-12-2024 Cholesterol [Mass/Vol] 173 mg/dL Normal 140-200 [facility] Comment on above: Order Comment: Reaso n for Exam Medicare annual wellness visit, subsequent;GERD (gastroesoph Result Comment: Chol less than 200 mg/dl low risk Chol 201-239 mg/dl borderline risk Chol 240 mg/dl and greater high risk Performed By: #### V [id number], TSH3 wRFLX, LIPID, CMP #### [facility] [address] [place] [address] [facility] Cholesterol in HDL [Mass/Vol] 54 mg/dL Normal 23-92 [facility] Comment on above: Order Comment: Reaso n for Exam Medicare annual wellness visit, subsequent;GERD (gastroesoph Result Comment: HDL CHOL ATP-III CLASSIFICATION Cardiovascular Risk HDL > or equal to 60 mg/dL LOW HDL < 40 mg/dL HIGH Performed By: #### V [id number], TSH3 wRFLX, LIPID, CMP #### [facility] [address] [place] [address] [place] Cholesterol.total/Darrion sterol in HDL [Mass ratio] 3.2 {ratio} Normal <5.0 [facility] Comment on above: Order Comment: Reaso n for Exam Medicare annual wellness visit, subsequent;GERD (gastroesoph Performed By: #### V [id number], TSH3 wRFLX, LIPID, CMP #### [facility] [address] [place] [address] [place] LDL Cholesterol,Calculated 103 mg/dL High 0-100 [facility] Comment on above: Order Comment: Reaso n for Exam Medicare annual wellness visit, subsequent;GERD (gastroesoph Result Comment: LDL ATP III CLASSIFICATION LDL less than 100 mg/dL Optimal LDL 100-129 mg/dL Near or above optimal LDL 130-159 mg/dL Borderline high LDL 160-189 mg/dL High LDL greater than 189 mg/dL Very high Performed By: #### V [id number], TSH3 wRFLX, LIPID, CMP #### [facility] [address] [place] [address] [place] Triglyceride w/Reflex 79 mg/dL Normal 0-149 [facility] Comment on above: Order Comment: Reaso n for Exam Medicare annual wellness visit, subsequent;GERD (gastroesoph Result Comment: TRIG ATP III CLASSIFICATION TRIG less than 150 mg/dL Normal TRIG 150-199 mg/dL Borderline high TRIG 200-500 mg/dL High TRIG greater than 500 mg/dL Very high Standard traceable to the Center for Disease Conrtrol and Prevention (CDC) test method. Performed By: #### V [id number], TSH3 wRFLX, LIPID, CMP #### [facility] [address] VLDL CHOLESTEROL 15 mg/dL Normal [facility] Comment on above: Order Comment: Reaso n for Exam Medicare annual wellness visit, subsequent;GERD (gastroesoph Performed By: #### V [id number], TSH3 wRFLX, LIPID, CMP #### [address] PSA Screen (Yearly Only)on 11-13-2023 PSA Screen (Yearly Only) 0.720 ng/mL Normal 0.000-4.000 [facility] Comment on above: Order Comment: Is pa tient <50 yrs? Medicare does not pay <50.: NA What is the date of the last PSA Screen?: NA OR...The date Patient is eligible for PSA Screen?: NA Is Medicare the insurance?: NA Did you verify eligibility (Dx Time) check TestViewGp: NOT MEDICARE Result Comment: Seri al tumor marker results determined by assays using different manufacturers or methods may not be comparable. [facility] business operations coordinator and method: [employer] DXI, CHEMILUMINESCENT IMMUNOASSAY. PERFORMED BY: [place] [address] PATHOLOGIST TRAVELING AUDITOR SHEREEN DOLAN M.D. Performed By: #### P SAS #### [address] Thyroid Stim Hormone w/Rflxo n 09-12-2024 Thyroid Stim Hormone w/Rflx 3.21 u[iU]/mL Normal 0.45-5.33 [facility] Comment on above: Order Comment: Reaso n for Exam Medicare annual wellness visit, subsequent;GERD (gastroesoph Performed By: #### V [id number], TSH3 wRFLX, LIPID, CMP #### [facility] [address] [place] [phone] [facility] Vitamin D 25 Hydroxy Totalon 09-12-2024 Vitamin D 25 Hydroxy Total 33.6 ng/mL Normal 30-100 [facility] Comment on above: Order Comment: Reaso n for Exam Medicare annual wellness visit, subsequent;GERD (gastroesoph Result Comment: Hemo lysis is present at a level that could interfere with the result. Contact lab if redraw is required VITAMIN D STATUS 25(OH)VITAMIN D RANGE (ng/mL) Deficient <20 Insufficient 20 to <30 Sufficient 30 to 100 Reference: Amber MF,Aries MASSEY, Marvin JACQUES, et al. Evaluation,treatment, and prevention of vitamin D deficiency; an Endocrine Society clinical practice guideline. JCEM. 2010; 96(7):1911-30. PERFORMED BY: [facility] [address] [facility] [place] [address] PATHOLOGIST TRAVELING AUDITOR SHEREEN DOLAN M.D. Performed By: #### V [id number], TSH3 wRFLX, LIPID, CMP #### [facility] [address] [place] [phone] [facility] Optical coherence tomography study reporton 08-30-2024 [facility] Radiology Study observation (narrative) [facility] Mary 08-29-2024 CNPN Telephone (NEURAV) BASILIO RANKIN ([id number]) 1950 M Date Time Provider Department 08/29/24 MEI KELLEY NEURSTAR During your visit today, we recorded the following information about you: Lashawn Rodríguez MA 08/29/2024 10:11 AM Signed ePA completed Status Sent to plan, with recent chart notes Drug risankizumab-rzaa (SKYRIZI) 150 mg/mL injection (starter kit) Waiting for determination. risankizumab-rzaa (SKYRIZI) 150 mg/mL injection (main) A pending Prior Authorization request for the Patient and Medication exist. - Prescriber details have been updated to match the prescriber directory. Lashawn Rodríguez MA 08/29/2024 10:49 AM Signed Outcome Approved Drug risankizumab-rzaa (SKYRIZI) 150 mg/mL injection (starter kit) Dates 10/11/2023 - 08/29/2027 Patient notified. Copy sent to MR for scanning. Allergies As of Date: 08/29/2024 Noted Allergy Reaction DILAUDID (HYDROMORPHONE (BULK)) 02/05/2015 14 - Other: See Comments Comments: BP dropped, lethargic, very shallow breathing. CEFUROXIME 08/10/2022 2 - Rash CIPROFLOXACIN 08/10/2022 2 - Rash CLARITHROMYCIN 09/20/2006 2 - Rash ERYTHROMYCIN 09/20/2006 2 - Rash HYDROMORPHONE 08/10/2022 14 - Other: See Comments MOXIFLOXACIN 08/10/2022 2 - Rash PENICILLIN V 08/10/2022 2 - Rash PENICILLINS 09/20/2006 [id number] REDUCTASE INHIBIT*08/10/2022 16 - Unknown SULFA (SULFONAMIDE ANTIBIOTICS) 09/20/2006 SULFACETAMIDE 08/10/2022 2 - Rash Date Reviewed: 08/28/2024 Reviewed by: Corina Meredith OCCA - Fully Assessed Reason for Visit: Insurance Authorization [[id number]] Prescriptions as of 08/29/2024 - Calcitriol 3 mcg/gram oint APPLY TO AFFECTED AREA(S) SPARINGLY EVERY NIGHT AT BEDTIME - risankizumab-rzaa (SKYRIZI) 150 mg/mL injection Loading dose: Inject 150 mg at week 0 and week 4. - risankizumab-rzaa (SKYRIZI) 150 mg/mL injection Inject 1 mL subcutaneously every 12 weeks. - Etanercept (ENBREL) 50 mg/mL (1 mL) injection Inject 1 mL subcutaneously two times a week. - Etanercept (ENBREL) 50 mg/mL (1 mL) injection INJECT 50 MG (1 ML) UNDER THE SKIN ONCE A WEEK - betamethasone dipropionate 0.05 % ointment Apply to affected area two times a day. - loratadine-pseudoephe drine ER (CLARITIN-D 12 HOUR) 5-120 mg per tablet Take by mouth q 12 HR. - cholecalciferol (VITAMIN D3) 1,000 unit tab tablet Take by mouth q 24 HR. - codeine-guaiFENesin (ROBITUSSIN AC) 10-100 mg/5 mL syrup Take by mouth. - loratadine-pseudoephe drine ER (CLARITIN-D 12) 5-120 mg per tablet Take by mouth q 12 HR. - pantoprazole DR (PROTONIX) 40 mg tablet Take by mouth q 24 HR. - pantoprazole DR (PROTONIX) 40 mg tablet - PANTOPRAZOLE SODIUM (PROTONIX ORAL) Take by mouth. 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 Psoriasis- Current treatment consists of: Enbrel 50 mg SC once weekly Calcitriol Ointment 3 mcg/g Are you Currently having any flares: yes, on elbows, knees, flank He states he's knows he wont ever get any better but is happy with treatment he states he deals with a lot of stress so he notices it more when he is under stress. And the sun clears it up and hasn't had any sun in awhile. Last injection was last week(s) ago Last TB- 08/24/24 Joint pain: No Injection site reactions: No Fevers/Chills/Night Sweats : No Blurry vision /new vision changes : No New or worsening fatigue: No New or worsening shortness of breath: No New or chronic cough : No Knows not to get live vaccines. EXAM: Patient is alert and oriented in no acute distress. Arms and Legs, Left Buttock, Photodistributed, Right Buttock, Scalp, Trunk Findings as follows: Left Abdomen (side) - Lower, Left Hand - Posterior, Left Knee - Anterior, Left Lower Back, Left Lower Leg - Anterior, Right Hand - Posterior, Right Knee - Anterior, Right Lower Back, Right Lower Leg - Anterior Several scattered plaques with moderate erythema and adherent whitish scale Abdomen (Lower Torso, Anterior), Arms and Legs, Chest (Upper Torso, Anterior), Neck, Photodistributed, Torso - Posterior (Back) Diffusely scattered garza macules and patches on sun exposed areas. Arms, Head, Torso - Posterior (Back) Brown flat-topped papule. IMPRESSION/PLAN: Skin exam, screening for cancer (6) Left Buttock; Right Buttock; Scalp; Trunk; Photodistributed; Arms and Legs Psoriasis Left Hand - Posterior; Right Hand - Posterior; Left Knee - Anterior; Right Knee - Anterior; Left Lower Leg - Anterior; Right Lower Leg - Anterior; Left Abdomen (side) - Lower; Left Lower Back; Right Lower Back BSA 40% on Enbrel for 20 years, now flaring despite Enbrel 50 mg once weekly. Advised switching to IL-23 inhibitor. See orders for details. Related Medications betamethasone dipropionate 0.05 % ointment Apply to affected area two times a day. Calcitriol 3 mcg/gram oint APPLY TO AFFECTED AREA(S) SPARINGLY EVERY NIGHT AT BEDTIME risankizumab-rzaa (SKYRIZI) 150 mg/mL injection Loading dose: Inject 150 mg at week 0 and week 4. risankizumab-rzaa (SKYRIZI) 150 mg/mL injection Inject 1 mL subcutaneously every 12 weeks. Diffuse photodamage of skin (6) Chest (Upper Torso, Anterior); Abdomen (Lower Torso, Anterior); Torso - Posterior (Back); Photodistributed; Arms and Legs; Neck Monitor for new/changing lesions. Seborrheic keratosis (3) Torso - Posterior (Back); Head; Arms -Patient reassured of benign nature of lesion(s). 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 F/U: 6 month skin check The documentation for this note was completed by RENÉ Cunningham acting as scribe for Mei Kelley MD. August 28, 2024 4:11 PM. The HPI, PMH, EXAM, Findings/plan that were documented by my histology assistant, who was scribing during the encounter, were confirmed by me and I agree with the content of these sections. I have made any required additions or deletions to the HPI/PFSH/exam/finding s/plan as needed. The physical exam and any procedures were performed by me, unless otherwise noted. Mei Kelley MD Medical Decision Making: Problems: Moderate: 1+ chronic illnesses with change Risk: Moderate: Drug management Medical Decision Making Level: 4 - Moderate Allergies As of Date: 08/28/2024 Noted Allergy Reaction DILAUDID (HYDROMORPHONE (BULK)) 02/05/2015 14 - Other: See Comments Comments: BP dropped, lethargic, very shallow breathing. CEFUROXIME 08/10/2022 2 - Rash CIPROFLOXACIN 08/10/2022 2 - Rash CLARITHROMYCIN 09/20/2006 2 - Rash ERYTHROMYCIN 09/20/2006 2 - Rash HYDROMORPHONE 08/10/2022 14 - Other: See Comments MOXIFLOXACIN 08/10/2022 2 - Rash PENICILLIN V 08/10/2022 2 - Rash PENICILLINS 09/20/2006 [id number] REDUCTASE INHIBIT*08/10/2022 16 - Unknown SULFA (SULFONAMIDE ANTIBIOTICS) 09/20/2006 SULFACETAMIDE 08/10/2022 2 - Rash Date Reviewed: 08/28/2024 Reviewed by: Corina Meredith OCCA - Fully Assessed Reason for Visit: Full Body Skin Check [1445] Primary Visit Diagnosis:Skin exam, screening for cancer [Z12.83] Other Visit Diagnoses:Psoriasis [L40.9] Diffuse photodamage of skin [L57.8] Seborrheic keratosis [L82.1] Polyarticular psoriatic arthritis (HCC) [L40.59] Order(s):Calcitriol 3 mcg/gram ointAPPLY TO AFFECTED AREA(S) SPARINGLY EVERY NIGHT AT BEDTIM (more content not included)... Normal [facility] Metabolic Prof ilon 03-02-2024 Albumin [Mass/Vol] 3.8 g/dL Normal 3.2-5.0 [facility] Comment on above: Performed By: #### L 500.4050 #### [facility] [address] [place], [address] Albumin/Globulin [Mass ratio] 1.0 {ratio} Normal 0.9-2.4 [facility] Comment on above: Performed By: #### L 500.4050 #### [facility] [address] [place], [place], [address] ALK P 72 U/L Normal 45-117 [facility] Comment on above: Performed By: #### L 500.4050 #### [facility] [address] [place], [address] ALT [Catalytic activity/Vol] 38 U/L Normal 16-61 [facility] Comment on above: Performed By: #### L 500.4050 #### [facility] [address] [place], [address] AST [Catalytic activity/Vol] 24 U/L Normal 15-37 [facility] Comment on above: Performed By: #### L 500.4050 #### [facility] [address] [place], [address] Bilirubin [Mass/Vol] 0.60 mg/dL Normal 0.20-1.00 [facility] Comment on above: Result Comment: For patients on eltrombopag therapy, use of Dimension [place] TBIL is not recommended. Performed By: #### L 500.4050 #### [facility] [address] [place], [address] BUN/CRE 19.0 RATIO Normal 10-20 [facility] Comment on above: Performed By: #### L 500.4050 #### [facility] [address] [place], [address] CA,Total 9.5 mg/dL Normal 8.5-10.1 [facility] Comment on above: Performed By: #### L 500.4050 #### [facility] [address] [place], [address] Chloride [Moles/Vol] 105 mmol/L Normal 98-107 [facility] Comment on above: Performed By: #### L 500.4050 #### [facility] [address] [place], [address] CO2 [Moles/Vol] 25.0 mmol/L Normal 21.0-32.0 [facility] Comment on above: Performed By: #### L 500.4050 #### [facility] [address] [place], [address] Creatinine [Mass/Vol] 1.00 mg/dL Normal 0.70-1.30 [facility] Comment on above: Result Comment: The validity of the calculated GFR GFRAA in patients over 70 years has not been determined. Clinical correlation is essential. Performed By: #### L 500.4050 #### [facility] [address] [place], [address] EST GFR - AA 95 mL/min Normal >60 [facility] Comment on above: Result Comment: Afri can Samoan GFR Calc Performed By: #### L 500.4050 #### [facility] [address] [place], [address] GAP 5 Normal 5-15 [facility] Comment on above: Performed By: #### L 500.4050 #### [facility] [address] [place], [address] GFR/1.73 sq M.predicted among non-blacks MDRD (S/P/Bld) [Vol rate/Area] 78 mL/min/{1.73_m2} Normal >60 [facility] Comment on above: Result Comment: Non- GFR Calc Performed By: #### L 500.4050 #### [facility] [address] [place], [address] Globulin (S) [Mass/Vol] 3.7 g/dL Normal 2.2-4.2 [facility] Comment on above: Performed By: #### L 500.4050 #### [facility] [address] [place], [address] Glucose [Mass/Vol] 94 mg/dL Normal 74-106 [facility] Comment on above: Performed By: #### L 500.4050 #### [facility] [address] [place], [address] Potassium [Moles/Vol] 4.1 mmol/L Normal 3.5-5.1 [facility] Comment on above: Performed By: #### L 500.4050 #### [facility] [address] [place], [address] Sodium [Moles/Vol] 135 mmol/L Low 136-145 [facility] Comment on above: Performed By: #### L 500.4050 #### [facility] [address] [place], [address] T PROT 7.5 g/dL Normal 6.4-8.2 [facility] Comment on above: Performed By: #### L 500.4050 #### [facility] [address] [place], [address] Urea nitrogen [Mass/Vol] 19 mg/dL High 7-18 [facility] Comment on above: Performed By: #### L 500.4050 #### [facility] [address] [place], [address] Surgery Visit Reporton 03-02 Surgery Visit Report [facility] [place] [facility] [address] [place], [place] [address] OFFICE VISIT Date of Service: 03/02/24 MR#: [id number] Acct: [id number] Name: BASILIO RANKIN Rep #: [id number] : 1950 Provider: DIAN nath Age/Sex: 73/M Location: [facility] Status: Signed Intake Vital Signs 02/21/24 13:45 Height 5 ft 9.5 in Intake Visit Reasons: Herina/Gall Bladder Surgery Chief Complaint: hernia gallbladder Is patient in pain?: No Allergies ciprofloxacin Allergy (Severe, Verified 03/02/24 13:12) Hives, rash clindamycin Allergy (Severe, Verified 03/02/24 13:12) Hives doxycycline Allergy (Severe, Verified 03/02/24 13:12) Hives, rash hydromorphone (From Dilaudid) Allergy (Severe, Verified 03/02/24 13:12) NEEDS FOLLOW-UP clarithromycin (From Biaxin) Allergy (Verified 03/02/24 13:12) Hives erythromycin base Allergy (Verified 03/02/24 13:12) Rash Penicillins Allergy (Verified 03/02/24 13:12) Rash Sulfa (Sulfonamide Antibiotics) Allergy (Verified 03/02/24 13:12) Hives Medications ???Medication ???Instructions ???Recorded ???Confirmed ???Type etanercept 50 mg/mL (1 mL) 50 mg subcut QWEEK 02/20/24 03/02/24 History subcutaneous syringe (Enbrel) pantoprazole 20 mg tablet,delayed 20 mg PO DAILY 02/20/24 03/02/24 History release (Protonix) Subjective Details: Patient is a 73 y/o M I am following s/p laparoscopic cholecystectomy with intraoperative cholangiogram and simple umbilical hernia repair by Dr. Murphy on 02/21/24. Patient tolerated the procedure well. Patient denies any nausea, vomiting, fever since the procedure. Patient notes appetite and bowel habits have returned to normal. Pathology demonstrated MICROSCOPIC DIAGNOSIS Gallbladder, cholecystectomy: Chronic cholecystitis, cholelithiasis and cholesterolosis. Objective Details: Abdomen- incisions c/d/i. No erythema or infection noted. Coding Level of Care Code Global Post Op Diagnoses S/P cholecystectomy Z90.49 S/P umbilical hernia repair, follow-up exam Z09 COUNT INCLUDES THE [facility] Medical History (Updated 02/29/24 @ 00:01 by Rigoberto Dacosta) Umbilical hernia without obstruction and without gangrene Ischemic colitis Psoriatic arthritis Surgical History (Updated 03/02/24 @ 13:13 by Brenda Song) S/P cholecystectomy S/P umbilical hernia repair, follow-up exam S/P hernia repair S/P appy Social History Smoking Status: Never smoker Assessment and Plan (No Qualifiers) Assessment and Plan (1) S/P cholecystectomy: Status: Acute (2) S/P umbilical hernia repair, follow-up exam: Status: Acute Plan Recommend no lifting greater than 20 pounds for 4 additional weeks Discussed list of activities that can be done Follow-up as needed 03/02/24 6853 Date Whitney Siddiqui Signature: Date (if applicable) CC: Normal [facility] CBC W/Diff, Automatedon 02-08 Absolute Lymph 2.38 X10 3/uL Normal 0.83-4.51 [facility] Comment on above: Performed By: #### L 100.0100 ####[facility] [address] [place], [address] Absolute Neut 8.7 X10 3/uL High 2.0-7.7 [facility] Comment on above: Performed By: #### L 100.0100 ####[facility] [address] [place], [address] Basophils/100 WBC (Bld) 0.4 % Normal 0-1 [facility] Comment on above: Performed By: #### L 100.0100 ####[facility] [address] [place], [address] Eosinophils/100 WBC (Bld) 0.2 % Normal 0-5 [facility] Comment on above: Performed By: #### L 100.0100 ####[facility] [address] [place], [address] Erythrocyte distribution width (RBC) [Ratio] 14.0 % Normal 11.6-14.6 [facility] Comment on above: Performed By: #### L 100.0100 ####[facility] [address] [place], [address] Hematocrit (Bld) [Volume fraction] 38.7 % Low 40-54 [facility] Comment on above: Performed By: #### L 100.0100 ####[facility] [address] [place], [address] Hemoglobin (Bld) [Mass/Vol] 12.5 g/dL Low 13.0-16.5 [facility] Comment on above: Performed By: #### L 100.0100 ####[facility] [address] [place], [address] IG% 0.400 Normal 0.0-0.9 [facility] Comment on above: Result Comment: IG% - Immature Granulocytes (promyelocytes, myelocytes and metamyelocytes) > 1% indicates that a LEFT SHIFT is Present. Performed By: #### L 100.0100 ####[facility] [address] [place], [address] Lymphocytes/100 WBC (Bld) 19.4 % Normal 19-41 [facility] Comment on above: Performed By: #### L 100.0100 ####[facility] [address] [place], [address] MCH (RBC) [Entitic mass] 30.2 pg Normal 27.0-32.0 [facility] Comment on above: Performed By: #### L 100.0100 ####[facility] [address] [place], [address] MCHC (RBC) [Mass/Vol] 32.3 g/dL Normal 32-36 [facility] Comment on above: Performed By: #### L 100.0100 ####[facility] [address] [place], [address] MCV (RBC) [Entitic vol] 93.5 fL Normal 80-94 [facility] Comment on above: Performed By: #### L 100.0100 ####[facility] [address] [place], [address] Monocytes/100 WBC (Bld) 9.0 % Normal 0-10 [facility] Comment on above: Performed By: #### L 100.0100 ####[facility] [address] [place], [address] Neutrophils/100 WBC (Bld) 70.6 % High 47-70 [facility] Comment on above: Performed By: #### L 100.0100 ####[facility] [address] [place], [address] Nucleated RBC (Bld) [#/Vol] 0 10*3/uL Normal 0-5 [facility] Comment on above: Performed By: #### L 100.0100 ####[facility] [address] [place], [address] Platelet mean volume (Bld) [Entitic vol] 9.9 fL Normal 6.2-12.0 [facility] Comment on above: Performed By: #### L 100.0100 ####[facility] [address] [place], [address] Platelets (Bld) [#/Vol] 190 10*3/uL Normal 150-450 [facility] Comment on above: Performed By: #### L 100.0100 ####[facility] [address] [place], [address] RBC (Bld) [#/Vol] 4.14 10*6/uL Low 4.6-6.2 [facility] Comment on above: Performed By: #### L 100.0100 ####[facility] [address] [place], [address] RDW SD 47.4 fl High 35.1-43.9 [facility] Comment on above: Performed By: #### L 100.0100 ####[facility] [address] [place], [address] WBC (Bld) [#/Vol] 12.3 10*3/uL High 4.4-11.0 [facility] Comment on above: Performed By: #### L 100.0100 ####[facility] [address] [place], [address] Comprehensive Metabolic Prof [facility] 02-22-2024 Albumin [Mass/Vol] 2.8 g/dL Low 3.2-5.0 [facility] Comment on above: Performed By: #### L 500.4055 ####[facility] [address] [place], [address] Albumin/Globulin [Mass ratio] 0.9 {ratio} Normal 0.9-2.4 [facility] Comment on above: Performed By: #### L 500.4050 ####[facility] [address] [place], [address] ALK P 71 U/L Normal 45-117 [facility] Comment on above: Performed By: #### L 500.4050 ####[facility] [address] [place], [address] ALT [Catalytic activity/Vol] 190 U/L High 16-61 [facility] Comment on above: Performed By: #### L 500.4050 ####[facility] [address] [place], [address] AST [Catalytic activity/Vol] 102 U/L High 15-37 [facility] Comment on above: Performed By: #### L 500.4050 ####[facility] [address] [place], [address] Bilirubin [Mass/Vol] 1.20 mg/dL High 0.20-1.00 [facility] Comment on above: Result Comment: For patients on eltrombopag therapy, use of Dimension [place] TBIL is not recommended. Performed By: #### L 500.4050 ####[facility] [address] [place], [address] BUN/CRE 16.7 RATIO Normal 10-20 [facility] Comment on above: Performed By: #### L 500.4050 ####[facility] [address] [place], [address] CA,Total 7.8 mg/dL Low 8.5-10.1 [facility] Comment on above: Performed By: #### L 500.4050 ####[facility] [address] [place], [address] Chloride [Moles/Vol] 111 mmol/L High 98-107 [facility] Comment on above: Performed By: #### L 500.4050 ####[facility] [address] [place], [address] CO2 [Moles/Vol] 22.0 mmol/L Normal 21.0-32.0 [facility] Comment on above: Performed By: #### L 500.4050 ####[facility] [address] [place], [address] Creatinine [Mass/Vol] 0.90 mg/dL Normal 0.70-1.30 [facility] Comment on above: Result Comment: The validity of the calculated GFR GFRAA in patients over 70 years has not been determined. Clinical correlation is essential. Performed By: #### L 500.4050 ####[facility] [address] [place], [address] ECRCL 86.44 ml/min Normal [facility] Comment on above: Performed By: #### L 500.4050 ####[facility] [address] [place], [address] EST GFR - AA 107 mL/min Normal >60 [facility] Comment on above: Result Comment: Afri can Samoan GFR Calc Performed By: #### L 500.4050 ####[facility] [address] [place], [address] GAP 6 Normal 5-15 [facility] Comment on above: Performed By: #### L 500.4050 ####[facility] [address] [place], [address] GFR/1.73 sq M.predicted among non-blacks MDRD (S/P/Bld) [Vol rate/Area] 89 mL/min/{1.73_m2} Normal >60 [facility] Comment on above: Result Comment: Non- GFR Calc Performed By: #### L 500.4050 ####[facility] [address] [place], [address] Globulin (S) [Mass/Vol] 3.0 g/dL Normal 2.2-4.2 [facility] Comment on above: Performed By: #### L 500.4050 ####[facility] [address] [place], [address] Glucose [Mass/Vol] 99 mg/dL Normal 74-106 [facility] Comment on above: Performed By: #### L 500.4050 ####[facility] [address] [place], [address] Potassium [Moles/Vol] 4.1 mmol/L Normal 3.5-5.1 [facility] Comment on above: Performed By: #### L 500.4050 ####[facility] [address] [place], [address] Sodium [Moles/Vol] 139 mmol/L Normal 136-145 [facility] Comment on above: Performed By: #### L 500.4050 ####[facility] [address] [place], [address] T PROT 5.8 g/dL Low 6.4-8.2 [facility] Comment on above: Performed By: #### L 500.4050 ####[facility] [address] [place], [address] Urea nitrogen [Mass/Vol] 15 mg/dL Normal 7-18 [facility] Comment on above: Performed By: #### L 500.4050 ####[facility] [address] [place], [address] CBC W/Diff, Automatedon 05-1 -2023 Absolute Lymph 2.49 X10 3/uL Normal 0.83-4.51 [facility] Comment on above: Performed By: #### L 500.4050, L100.0100 ####[facility] [address] [place], [address] Absolute Neut 2.9 X10 3/uL Normal 2.0-7.7 [facility] Comment on above: Performed By: #### L 500.4050, L100.0100 ####[facility] [address] [place], [address] Basophils/100 WBC (Bld) 1.0 % Normal 0-1 [facility] Comment on above: Performed By: #### L 500.4050, L100.0100 ####[facility] [address] [place], [address] Eosinophils/100 WBC (Bld) 4.6 % Normal 0-5 [facility] Comment on above: Performed By: #### L 500.4050, L100.0100 ####[facility] [address] [place], [address] Erythrocyte distribution width (RBC) [Ratio] 13.9 % Normal 11.6-14.6 [facility] Comment on above: Performed By: #### L 500.4050, L100.0100 ####[facility] [address] [place], [address] Hematocrit (Bld) [Volume fraction] 41.1 % Normal 40-54 [facility] Comment on above: Performed By: #### L 500.4050, L100.0100 ####[facility] [address] [place], [address] Hemoglobin (Bld) [Mass/Vol] 13.5 g/dL Normal 13.0-16.5 [facility] Comment on above: Performed By: #### L 500.4050, L100.0100 ####[facility] [address] [place], [address] IG% 0.300 Normal 0.0-0.9 [facility] Comment on above: Result Comment: IG% - Immature Granulocytes (promyelocytes, myelocytes and metamyelocytes) > 1% indicates that a LEFT SHIFT is Present. Performed By: #### L 500.4050, L100.0100 ####[facility] [address] [place], [address] Lymphocytes/100 WBC (Bld) 39.6 % Normal 19-41 [facility] Comment on above: Performed By: #### L 500.4050, L100.0100 ####[facility] [address] [place], [address] MCH (RBC) [Entitic mass] 30.3 pg Normal 27.0-32.0 [facility] Comment on above: Performed By: #### L 500.4050, L100.0100 ####[facility] [address] [place], [address] MCHC (RBC) [Mass/Vol] 32.8 g/dL Normal 32-36 [facility] Comment on above: Performed By: #### L 500.4050, L100.0100 ####[facility] [address] [place], [address] MCV (RBC) [Entitic vol] 92.2 fL Normal 80-94 [facility] Comment on above: Performed By: #### L 500.4050, L100.0100 ####[facility] [address] [place], [address] Monocytes/100 WBC (Bld) 7.8 % Normal 0-10 [facility] Comment on above: Performed By: #### L 500.4050, L100.0100 ####[facility] [address] [place], [address] Neutrophils/100 WBC (Bld) 46.7 % Low 47-70 [facility] Comment on above: Performed By: #### L 500.4050, L100.0100 ####[facility] [address] [place], [address] Nucleated RBC (Bld) [#/Vol] 0 10*3/uL Normal 0-5 [facility] Comment on above: Performed By: #### L 500.4050, L100.0100 ####[facility] [address] [place], [address] Platelet mean volume (Bld) [Entitic vol] 9.7 fL Normal 6.2-12.0 [facility] Comment on above: Performed By: #### L 500.4050, L100.0100 ####[facility] [address] [place], [address] Platelets (Bld) [#/Vol] 198 10*3/uL Normal 150-450 [facility] Comment on above: Performed By: #### L 500.4050, L100.0100 ####[facility] [address] [place], [address] RBC (Bld) [#/Vol] 4.46 10*6/uL Low 4.6-6.2 [facility] Comment on above: Performed By: #### L 500.4050, L100.0100 ####[facility] [address] [place], [address] RDW SD 47.6 fl High 35.1-43.9 [facility] Comment on above: Performed By: #### L 500.4050, L100.0100 ####[facility] [address] [place], [address] WBC (Bld) [#/Vol] 6.3 10*3/uL Normal 4.4-11.0 [facility] Comment on above: Performed By: #### L 500.4050, L100.0100 ####[facility] [address] [place], [address] Cholangiogram/ O R,Initialon 05-13-2024 Cholangiogram/ O R,Initial [facility] Imaging Services [address] [place], [place] [address] Cholangiogram/ O R,Initial MR#: [id number] Acct: [id number] Name: BASILIO RANKIN Rep #: [id number] : 1950 M 73 From: Shiv Knight PCP: RASHMI BUCHANAN Status: ADM IN Study: Cholangiogram/ O R,Initial Date of Exam: 02/20 Exam# [id number] Ordering Dr: Basilio Murphy MD [id number] INDICATION: LAP DARRION WITH IOC EXAMINATION/TECHNIQUE : 2 cine runs are presented for evaluation. Total Fluoroscopic Time: 23.1 seconds Radiation dosage index: 8.86 mgy. COMPARISON: No relevant prior comparison study available __ FINDINGS: Filling defects are seen in the proximal common bile duct/common hepatic duct. There is no biliary ductal dilatation. There is free passage into the duodenum. RAD/Cholangiogram/ O R,Initial IMPRESSION: Filling defects in the proximal common hepatic ducts concerning for retained stones. Electronically Signed: Shiv Pérez MD at 15:49 EDT , CC: Dr. Basilio Murphy MD; RASHMI BUCHANAN Sales Service Promoter: Signed Normal [facility] Comprehensive Metabolic Prof ilon 02-21-2024 Albumin [Mass/Vol] 3.1 g/dL Low 3.2-5.0 [facility] Comment on above: Performed By: #### L 500.4050, L100.0100 ####[facility] [address] [place], [address] Albumin/Globulin [Mass ratio] 1.1 {ratio} Normal 0.9-2.4 [facility] Comment on above: Performed By: #### L 500.4050, L100.0100 ####[facility] [address] [place], [address] ALK P 77 U/L Normal 45-117 [facility] Comment on above: Performed By: #### L 500.4050, L100.0100 ####[facility] [address] [place], [address] ALT [Catalytic activity/Vol] 284 U/L High 16-61 [facility] Comment on above: Performed By: #### L 500.4050, L100.0100 ####[facility] [address] [place], [address] AST [Catalytic activity/Vol] 214 U/L High 15-37 [facility] Comment on above: Performed By: #### L 500.4050, L100.0100 ####[facility] [address] [place], [address] Bilirubin [Mass/Vol] 2.40 mg/dL High 0.20-1.00 [facility] Comment on above: Result Comment: For patients on eltrombopag therapy, use of Dimension [place] TBIL is not recommended. Performed By: #### L 500.4050, L100.0100 ####[facility] [address] [place], [address] BUN/CRE 13.2 RATIO Normal 10-20 [facility] Comment on above: Performed By: #### L 500.4050, L100.0100 ####[facility] [address] [place], [address] CA,Total 8.2 mg/dL Low 8.5-10.1 [facility] Comment on above: Performed By: #### L 500.4050, L100.0100 ####[facility] [address] [place], [address] Chloride [Moles/Vol] 112 mmol/L High 98-107 [facility] Comment on above: Performed By: #### L 500.4050, L100.0100 ####[facility] [address] [place], [address] CO2 [Moles/Vol] 23.0 mmol/L Normal 21.0-32.0 [facility] Comment on above: Performed By: #### L 500.4050, L100.0100 ####[facility] [address] [place], [address] Creatinine [Mass/Vol] 0.83 mg/dL Normal 0.70-1.30 [facility] Comment on above: Result Comment: The validity of the calculated GFR GFRAA in patients over 70 years has not been determined. Clinical correlation is essential. Performed By: #### L 500.4050, L100.0100 ####[facility] [address] [place], [address] ECRCL 93.73 ml/min Normal [facility] Comment on above: Performed By: #### L 500.4050, L100.0100 ####[facility] [address] [place], [address] EST GFR - AA 117 mL/min Normal >60 [facility] Comment on above: Result Comment: Afri can Samoan GFR Calc Performed By: #### L 500.4050, L100.0100 ####[facility] [address] [place], [address] GAP 6 Normal 5-15 [facility] Comment on above: Performed By: #### L 500.4050, L100.0100 ####[facility] [address] [place], [address] GFR/1.73 sq M.predicted among non-blacks MDRD (S/P/Bld) [Vol rate/Area] 97 mL/min/{1.73_m2} Normal >60 [facility] Comment on above: Result Comment: Non- GFR Calc Performed By: #### L 500.4050, L100.0100 ####[facility] [address] [place], [address] Globulin (S) [Mass/Vol] 2.9 g/dL Normal 2.2-4.2 [facility] Comment on above: Performed By: #### L 500.4050, L100.0100 ####[facility] [address] [place], [address] Glucose [Mass/Vol] 82 mg/dL Normal 74-106 [facility] Comment on above: Performed By: #### L 500.4050, L100.0100 ####[facility] [address] [place], [address] Potassium [Moles/Vol] 3.9 mmol/L Normal 3.5-5.1 [facility] Comment on above: Performed By: #### L 500.4050, L100.0100 ####[facility] [address] [place], [address] Sodium [Moles/Vol] 141 mmol/L Normal 136-145 [facility] Comment on above: Performed By: #### L 500.4050, L100.0100 ####[facility] [address] [place], [address] T PROT 6.0 g/dL Low 6.4-8.2 [facility] Comment on above: Performed By: #### L 500.4050, L100.0100 ####[facility] [address] [place], [address] Urea nitrogen [Mass/Vol] 11 mg/dL Normal 7-18 [facility] Comment on above: Performed By: #### L 500.4050, L100.0100 ####[facility] [address] [place], [address] Operative Reporton 4 Operative Report [facility] Medical Records Department [address] [place] [address] Operative Report 02/21/24 1554 MR#: [id number] Acct: [id number] Name: BASILIO RANKIN Rep #: [id number] : 1950 73 From: Basilio Murphy MD PCP: RASHMI BUCHANAN Status:ADM IN [facility] of Operation Date of Procedure: 02/21/24 Pre-Operative Diagnosis: 1. Acute cholecystitis with elevated LFTs and hyperbilirubinemia 2. Umbilical hernia Post-Operative Diagnosis: 1. Acute cholecystitis 2. Umbilical hernia Surgery/Procedure Performed:: 1. Laparoscopic cholecystectomy with intraoperative cholangiography 2. Primary repair of umbilical hernia Description of Surgical Findings:: ??? Evidence of acute cholecystitis with numerous adhesions and fresh edema planes ??? Cholangiogram showing antegrade filling of the common bile duct through the ampulla Vater into the duodenum without filling defect or obstruction as well as retrograde filling of the common hepatic duct system Surgeon: Basilio Murphy seamark advanced operator maintainer: Jose Guy Type of Anesthesia: General/Supplemental Anesthesiologist: Isaac Cooley Specimen's removed: Gallbladder Estimated Blood Loss (mL): 10 Description of Procedure: After proper identification in the preoperative holding area the patient was brought to the operating room where he was positioned supine on the operating room table. Preoperatively SCDs were connected. (Antibiotics were administered previously on the floor) General anesthesia was then induced. Patient's abdomen was prepped and draped in usual sterile fashion. A formal timeout was conducted to confirm both patient and the procedure. Procedure was begun with a curvilinear infraumbilical incision which was extended deeply down to the level of the fascia. Patient's hernia sac was circumferentially dissected and the overlying umbilical skin was dissected free of the hernia sac. Peritoneal entry was made via the patient's hernia defect. A finger sweep was performed to ensure there were no underlying adhesions and a 12 mm balloon trocar was inserted. Pneumoperitoneum was established at 15 mmHg. Three additional trocars (all 5 mm) were placed in the epigastrium and in the right upper quadrant. Inspection of the peritoneum revealed no inadvertent injury to the viscera below. The gallbladder was visualized with evidence of acute inflammation and several attachments to the omentum were stripped down. The gallbladder fundus was then grasped and elevated cephalad but in doing so we encountered more inflammatory change and adherence between the gallbladder body and the antral part of the stomach. Careful dissection was used to separate these 2 structures which was done with relative ease given the acute inflammatory plane. Then, using careful dissection the peritoneum was opened and the structures of the hepatocystic triangle were delineated. Once the critical view of safety was obtained, the cystic duct was singly clipped and partially divided with a ductotomy. A 14 Guyanese angiocatheter was inserted to the right upper quadrant then a cholangiocatheter was fed into the proximal segment of the cystic duct and clipped into place. Under fluoroscopy a cholangiogram was then obtained showing a standard length cystic duct flowing into a common bile duct with unobstructed antegrade flow of contrast into the duodenum. There was also retrograde flow through the common hepatic duct into the right and left hepatic ducts. Within the common hepatic duct system there appeared to be an air bubble that KVNG ended in the ductwork as the cholangiogram fluoroscopy proceeded. Based on this interpretation the cholangiogram was completed. Satisfied with this result, the cholangiocatheter was withdrawn and the proximal cystic duct was sealed with clips and the cystic duct was completely transected. The same process was used for the cystic artery. The gallbladder was then removed from the gallbladder fossa with the use of electrocautery. Selective electrocautery was used to obtain hemostasis in the gallbladder fossa. The gallbladder was placed in an Endo Catch bag and removed from the peritoneum. Morison's pouch was irrigated and the effluent was suctioned free of the peritoneum. Hemostasis was again confirmed. Pneumoperitoneum was evacuated and the fascia of the 12 mm umbilical port site was cleared of fat and attenuated hernia sac using a combination of blunt dissection electrocautery. Once the fascial edge was circumferentially cleared I undertook closure of the hernia using 0 Ethibond suture in a wpjwdg-nm-hgwlf technique x 2. An interrupted suture was also required between these 2 index sutures to completely close the fascial gap. Lastly a 4-0 Monocryl suture was used to tack the overlying umbilical skin to the fascial layer. A total of 30 mL of anesthetic was injected at the port sites for po (more content not included)... Normal [facility] Surgery Specimen Level IIIon 02-21-2024 Surgery Specimen Level III -------- Patient Age/Sex Location Account Attending Physician -------- BASILIO RANKIN 73/M MS3 [id number] Dr. Basilio Murphy MD -------- Specimen: Received: 02/21/24 Status: TALIB Felicita Num: [id number] Spec Type: AMOL Ro Dr: Dr. Basilio Murphy MD HEADER OPERATION: Laparoscopic, cholecystectomy with IOC, umbilical hernia repair PRE-OP DIAGNOSIS: Cholecystitis, acute with cholelithiasis, abnormal LFT's, conjugated hyperbilirubinemia, umbilical hernia without obstruction and without gangrene TISSUE SUBMITTED: Gallbladder -------- MICROSCOPIC DIAGNOSIS Gallbladder, cholecystectomy: Chronic cholecystitis, cholelithiasis and cholesterolosis. ALLEN/ 02/23/2024 MICROSCOPIC DESCRIPTION Slides are reviewed. GROSS DESCRIPTION Received is one container labeled with the patient's name and designated gallbladder. The specimen consists of a gallbladder measuring 7.5 cm in length and up to 3.5 cm in diameter. The external surface is pink-garza, smooth and glistening for the most part. Focally it is granular, hemorrhagic and contains cautery artifact. The gallbladder contains green-yellow mucoid bile and one irregular black stone measuring 0.4 cm in greatest dimension. The mucosa is bile-stained and without any mass lesions. The gallbladder wall measures up to 0.3 cm in thickness. Travel Specialist sections from the gallbladder and the cystic duct are submitted in one cassette. / ALLEN: 02/22/24 TC:3 CPT: 13204 -------- Patient Age/Sex Location Account Attending Physician -------- BASILIO RANKIN/M MS3 [id number] Dr. Basilio Murphy MD -------- Signed (signature on file) Dr. Seth Beckford MD 02/24/24 0930 -------- Normal [facility] Comment on above: Performed By: #### P SUIII ####[facility] [address] [place], [place], [address] Abdomen Limitedon 02-20-2024 Abdomen Limited [facility] Imaging Services [address] [place], [place] [address] Abdomen Limited MR#: [id number] Acct: [id number] Name: BASILIO RANKIN Brinda Rep #: [id number] : 1950 73 From: Tomas Soto MD PCP: RASHMI BUCHANAN Status: [facility] Study: Abdomen Limited Date of Exam: 02/20/24 Exam# [id number] Ordering Dr: Jorgito Schaffer DO [id number] STUDY: ABDOMINAL ULTRASOUND - RIGHT UPPER QUADRANT REASON FOR VISIT: Male, 73 years old ABD PAIN TECHNIQUE: Ultrasound evaluation of the right upper quadrant was performed with real-time and static isaacs-scale imaging. TECHNICAL QUALITY: Limited. Examination limited by bowel gas. COMPARISON: None. FINDINGS: Liver: The liver measures 18 cm. There is increased echogenicity consistent with fatty infiltration. The bile ducts are within normal limits. There is hepatic color flow. The direction of portal flow is hepatopetal. There is no demonstrated mass lesion. Gallbladder: Normal distended gallbladder. The gallbladder wall measures 3.2 mm. There is a positive sonographic Shaver''s sign. There is minimal pericholecystic fluid. There are multiple echogenic structures within the gallbladder, consistent with multiple gallstones along with echogenic sludge. Common Bile Duct (C.B.D.): The common bile duct measures 3.7 mm. Pancreas: There is nonvisualization of the pancreas. Right Kidney: Normal size of the right kidney. The right kidney measures 11 x 5.3 x 5.3 cm. Normal renal cortex. The right cortex measures 1.3 cm. There is no demonstrated renal mass or cyst. There is no right hydronephrosis. US/Abdomen Limited IMPRESSION: Multiple echogenic gallstones noted along with echogenic sludge, or wall thickening, positive Shaver sign and pericholecystic fluid. Findings consistent with acute cholecystitis. Surgical consultation recommended Hepatomegaly with diffuse fatty infiltration, no discrete lesion Electronically Signed: Jabari Soto MD at 9:05 EDT , CC: Dr. Jorgito Schaffer DO; RASHMI BUCHANAN Sales Service Promoter: Signed Normal [facility] Abdomen/Pelvis W IV Cont ONL Yon 02-20-2024 Abdomen/Pelvis W IV Cont ONLY [facility] Imaging Services [address] [place], [place] [id number] Abdomen/Pelvis W IV Cont ONLY MR#: [id number] Acct: [id number] Name: BASILIO RANKIN Brinda Rep #: [id number] : 1950 M 73 From: Dante Deshpande MD PCP: RASHMI BUCHANAN Status: [facility] Study: Abdomen/Pelvis W IV Cont ONLY Date of Exam: Exam# [id number] Ordering Dr: Jorgito Schaffer DO [id number] EXAM: CT ABDOMEN AND PELVIS WITH INTRAVENOUS CONTRAST CLINICAL INDICATION: Abdominal pain TECHNIQUE: Helically acquired images were obtained of the abdomen and pelvis with intravenous contrast. This CT exam was performed using one or more of the following dose reduction techniques: automated exposure control, adjustment of the mA and/or kV according to patient size, and/or use of iterative reconstruction technique. CONTRAST: IV 100mL Isovue-370 RADIATION DOSE: CTDIvol = 20.62 mGy, DLP = 1139.57 mGy-cm COMPARISON: No relevant prior studies available. FINDINGS: LOWER THORAX: Bibasilar dependent atelectasis. No cardiomegaly. No significant pericardial effusion. ABDOMEN: LIVER: Unremarkable. Homogeneous. No focal mass. GALLBLADDER AND BILE DUCTS: Small gallstones. No gallbladder distention or wall edema. No intra- or extrahepatic biliary ductal dilation. PANCREAS: No inflammation around the pancreas. No focal cystic or solid mass. SPLEEN: Unremarkable. Normal size without focal cystic or solid mass. ADRENALS: Unremarkable. No nodules. KIDNEYS AND URETERS: Unremarkable. Normal renal size and position. No hydronephrosis. STOMACH AND BOWEL: Unremarkable. No stomach or bowel distention. No focal inflammatory change. PELVIS: APPENDIX: Appendectomy. BLADDER: Unremarkable. REPRODUCTIVE: Unremarkable as visualized. No mass. ABDOMEN and PELVIS: INTRAPERITONEAL SPACE: Unremarkable. No ascites or other fluid collection. No free air. BONES/JOINTS: Unremarkable. No suspicious lytic or blastic abnormality. SOFT TISSUES: Small fat-containing periumbilical hernia. VASCULATURE: Unremarkable. Abdominal aorta is non-dilated. LYMPH NODES: Unremarkable. No enlarged lymph nodes. CT/Abdomen/Pelvis W IV Cont ONLY IMPRESSION: 1. No acute intra-abdominal abnormalities identified. 2. Small gallstones. Electronically Signed: Dante Deshpande MD at 5:22 EDT , CC: Dr. Jorgito Schaffer DO; RASHMI BUCHANAN Sales Service Promoter: Signed Normal [facility] Absolute lymphocyte countOrd ered By: Jorgito Schaffer on 02-20-2024 Lymphocytes Auto (Unsp spec) [#/Vol] 5.58 10*3/uL 0.83-4.51 [facility] Activated partial thrombopla stin time (aPTT) in platelet poor plasma by coagulation aOrdered By: Jorgito Schaffer on 02-20-2024 aPTT Coag (PPP) [Time] 22.8 s 24.1-36.2 [facility] Automated lymphocyte count a s percentage of total leukocytesOrdered By: Jorgito Schaffer on 02-20-2024 Lymphocytes/100 WBC Auto (Unsp spec) 45.5 % 19-41 [facility] Basic Metabolic Profile (BMP )on 02-20-2024 BUN/CRE 21.9 RATIO High 10-20 [facility] Comment on above: Order Comment: 1Y Performed By: #### L 501.2450, L500.2500, L100.0100, L501.5425 ####[facility] [address] [place], [address] CA,Total 9.0 mg/dL Normal 8.5-10.1 [facility] Comment on above: Order Comment: 1Y Performed By: #### L 501.2450, L500.2500, L100.0100, L501.5425 ####[facility] [address] [place], [address] Chloride [Moles/Vol] 105 mmol/L Normal 98-107 [facility] Comment on above: Order Comment: 1Y Performed By: #### L 501.2450, L500.2500, L100.0100, L501.5425 ####[facility] [address] [place], [address] CO2 [Moles/Vol] 27.0 mmol/L Normal 21.0-32.0 [facility] Comment on above: Order Comment: 1Y Performed By: #### L 501.2450, L500.2500, L100.0100, L501.5425 ####[facility] [address] [place], [address] Creatinine [Mass/Vol] 1.14 mg/dL Normal 0.70-1.30 [facility] Comment on above: Order Comment: 1Y Result Comment: The validity of the calculated GFR GFRAA in patients over 70 years has not been determined. Clinical correlation is essential. Performed By: #### L 501.2450, L500.2500, L100.0100, L501.5425 ####[facility] [address] [place], [address] ECRCL 68.24 ml/min Normal [facility] Comment on above: Order Comment: 1Y Performed By: #### L 501.2450, L500.2500, L100.0100, L501.5425 ####[facility] [address] [place], [address] EST GFR - AA 81 mL/min Normal >60 [facility] Comment on above: Order Comment: 1Y Result Comment: Afri can Samoan GFR Calc Performed By: #### L 501.2450, L500.2500, L100.0100, L501.5425 ####[facility] [address] [place], [address] GAP 7 Normal 5-15 [facility] Comment on above: Order Comment: 1Y Performed By: #### L 501.2450, L500.2500, L100.0100, L501.5425 ####[facility] [address] [place], [address] GFR/1.73 sq M.predicted among non-blacks MDRD (S/P/Bld) [Vol rate/Area] 67 mL/min/{1.73_m2} Normal >60 [facility] Comment on above: Order Comment: 1Y Result Comment: Non- GFR Calc Performed By: #### L 501.2450, L500.2500, L100.0100, L501.5425 ####[facility] [address] [place], [address] Glucose [Mass/Vol] 131 mg/dL High 74-106 [facility] Comment on above: Order Comment: 1Y Result Comment: Fast ing Glucose result greater than or equal to 126 mg/dL suggests DIABETES MELLITUS per A.D.A. criteria. Performed By: #### L 501.2450, L500.2500, L100.0100, L501.5425 ####[facility] [address] [place], [address] Potassium [Moles/Vol] 3.7 mmol/L Normal 3.5-5.1 [facility] Comment on above: Order Comment: 1Y Performed By: #### L 501.2450, L500.2500, L100.0100, L501.5425 ####[facility] [address] [place], [address] Sodium [Moles/Vol] 139 mmol/L Normal 136-145 [facility] Comment on above: Order Comment: 1Y Performed By: #### L 501.2450, L500.2500, L100.0100, L501.5425 ####[facility] [address] [place], [address] Urea nitrogen [Mass/Vol] 25 mg/dL High 7-18 [facility] Comment on above: Order Comment: 1Y Performed By: #### L 501.2450, L500.2500, L100.0100, L501.5425 ####[facility] [address] [place], [address] Basophil percentageOrdered B y: Jorgito Schaffer on 02-20-2024 Bilirubin [Mass/Vol] 2.50 mg/dL 0.20-1.00 [facility] Comment on above: For patients on eltr ombopag therapy, use of Dimension [place] TBIL is not recommended. Protein [Mass/Vol] 6.9 g/dL 6.4-8.2 [facility] Basophil percentage 0 SEEN /hpf 0-5 [facility] Basophils/100 WBC (Bld) 0.6 % 0-1 [facility] Chloride [Moles/Vol] 105 mmol/L 98-107 [facility] Eosinophils/100 WBC (Bld) 2.2 % 0-5 [facility] Glucose [Mass/Vol] 131 mg/dL 74-106 [facility] Comment on above: Fasting Glucose resu lt greater than or equal to 126 mg/dL suggests DIABETES MELLITUS per A.D.A. criteria. Hemoglobin (Bld) [Mass/Vol] 14.7 g/dL 13.0-16.5 [facility] Monocytes/100 WBC (Bld) 8.0 % 0-10 [facility] Neutrophils (Bld) [#/Vol] 5.3 10*3/uL 2.0-7.7 [facility] Neutrophils/100 WBC (Bld) 43.4 % 47-70 [facility] Potassium [Moles/Vol] 3.7 mmol/L 3.5-5.1 [facility] Sodium [Moles/Vol] 139 mmol/L 136-145 [facility] WBC (Bld) [#/Vol] 12.3 10*3/uL 4.4-11.0 [facility] Bilirubin Test strip Ql (U)O rdered By: Jorgito Schaffer on 02-20-2024 Bilirubin Ql (U) 1 mg/dL Negative [facility] Comment on above: COLOR OF URINE MAY A FFECT DIPSTICK RESULTS. Blood manual differential co mment interpretation (narrative result)Ordered By: Jorgito Schaffer on 02-20-2024 Manual differential comment Julien (Bld) [Interp] SCANNED [facility] Comment on above: LYMPHOCYTOSIS PRESEN T CBC W/Diff, Automatedon 02-08 REACTIVE LYMPH 1+ Normal [facility] Comment on above: Performed By: #### L 501.2450, L500.2500, L100.0100, L501.5425 #### [facility] [address] [place], [address] SMEAR COMMENT SCANNED Normal [facility] Comment on above: Result Comment: LYMP HOCYTOSIS PRESENT Performed By: #### L 501.2450, L500.2500, L100.0100, L501.5425 #### [facility] [address] [place], [address] Chest 1 View (Portable)on Chest 1 View (Portable) [facility] Imaging Services [address] [place] [address] Chest 1 View (Portable) MR#: [id number] Acct: [id number] Name: BASILIO RANKIN Rep #: [id number] : 1950 M 73 From: Dante Deshpande MD PCP: RASHMI BUCHANAN Status: REG ER Study: Chest 1 View (Portable) Date of Exam: 02/20/24 Exam# [id number] Ordering Dr: Jorgito Schaffer DO [id number] EXAM: XR CHEST, 1 VIEW CLINICAL INDICATION: chest pain TECHNIQUE: Frontal view of the chest. COMPARISON: No relevant prior studies available. FINDINGS: LUNGS AND PLEURAL SPACES: Unremarkable. No consolidation or edema. No pneumothorax. No effusion. HEART: Unremarkable. Cardiac silhouette not enlarged. MEDIASTINUM: Central airways and mediastinal contour are unremarkable. BONES/JOINTS: Unremarkable. No acute fracture. SOFT TISSUES: Unremarkable. RAD/Chest 1 View (Portable) IMPRESSION: No radiographic evidence of acute cardiopulmonary disease. Electronically Signed: Dante Deshpande MD at 2:43 EDT , CC: Dr. Jorgito Schaffer DO; RASHMI BUCHANAN Sales Service Promoter: Signed Normal [facility] Determination of erythrocyte mean corpuscular volume (MCV)Ordered By: Jorgito Schaffer on 02-20-2024 MCV (RBC) [Entitic vol] 91.5 fL 80-94 [facility] Direct bilirubinOrdered By: Jorgito Schaffer on 02-20-2024 Bilirubin.direct [Mass/Vol] 1.26 mg/dL 0.00-0.30 [facility] Emergency Department Summary on 02-20-2024 Emergency Department Summary [facility] Medical Records Department [address] [place] [address] Emergency Department Summary 02/20/24 MR#: [id number] Acct: [id number] Name: BASILIO RANKIN Rep #: [id number] : 1950 73 From: Jorgito Schaffer DO PCP: RASHMI BUCHANAN Status:REG ER Location: ED HPI HPI - GI History of Present Illness Chief Complaint: Abd Pain Informant: patient Abdominal Pain/Flank Pain Onset: Today and Hours (6) Context: Gradual Onset Timing: Continuous Quality: - (Pressure) Location: Epigastric, RUQ and LUQ Worsened by: Nothing Relieved by: Nothing Nausea/Vomiting/Emesi s GI Symptom: Negative for Nausea or Vomiting Diarrhea/Melena/Hemat ochezia GI Symptom: Negative for Diarrhea, Melena or Hematochezia Associated Symptoms Associated Symptoms: Negative for Dysuria, Frequency or Hematuria Narrative Narrative: Patient presents with epigastric abdominal pain that began tonight approximately 6 hours prior to arrival. Patient states that his pain started in his epigastric area and radiated around to both upper quadrants. Patient states the pain radiated to his back. Patient states he had a similar episode 1 week ago and took ibuprofen for it and it resolved at that time. Patient states he took some ibuprofen tonight with no improvement. Patient describes his pain as a pressure. Patient states nothing makes his pain worse and nothing makes it better. Patient denies any chest pain or shortness of breath. Patient denies any nausea or vomiting. Patient denies any diarrhea, melena, or hematochezia. Patient denies any urinary complaints. [facility] Medical History (Updated 02/20/24 @ 06:[address] Jorgito Schaffer DO) Ischemic colitis Psoriatic arthritis Home Medications etanercept 50 mg/mL (1 mL) subcutaneous syringe (Enbrel) 50 mg subcut QWEEK 02/20/24 [History Last Taken Unknown] pantoprazole 20 mg tablet,delayed release (Protonix) 20 mg PO DAILY 02/20/24 [History Last Taken Unknown] Allergy/AdvReac Type Severity Reaction Status Date / Time clarithromycin [From Biaxin] Allergy Hives Verified 02/20/24 01:12 erythromycin base Allergy Rash Verified 02/20/24 01:12 Penicillins Allergy Rash Verified 02/20/24 01:12 Sulfa (Sulfonamide Allergy Hives Verified 02/20/24 01:12 Antibiotics) Surgical History S/P appy S/P hernia repair Social History Smoking Status: Never smoker ROS ROS ED Constitutional Constitutional ED: Denies chills or fever(s) Eyes Eyes: Denies blurry vision or change in vision ENT ENT ED: Denies rhinorrhea or sore throat Cardiovascular Cardiovascular: Denies chest pain or palpitations Respiratory/Chest Respiratory/Chest: Denies cough or dyspnea Gastrointestinal Gastrointestinal: Reports abdominal pain; Denies nausea or vomiting Genitourinary Genitourinary ED: Denies dysuria or hematuria Musculoskeletal Musculoskeletal: Reports back pain; Denies neck pain Integumentary Denies abscess or rash Neurologic Neurologic: Denies headache(s) or weakness Allergic/Immunologic Allergic/Immunologic ED: Denies mouth swelling or urticaria EXAM Physical Exam Const Vital Signs: 02/20/24 01:06 02/20/24 02:45 02/20/24 03:07 Temperature 96.9 F L Temperature Source Oral Pulse Rate 59 L 65 Respiratory Rate 16 16 Blood Pressure 131/73 H 112/80 Blood Pressure Mean 92 90 Pulse Ox 100 100 Oxygen Delivery Method Room Air Room Air Room Air 02/20/24 05:00 Temperature Temperature Source Pulse Rate 70 Respiratory Rate 17 Blood Pressure 112/75 Blood Pressure Mean 87 Pulse Ox 98 Oxygen Delivery Method Room Air Positive well nourished and well developed General Appearance ED: well developed and NAD HEENT Reports moist mucous membranes Neck supple and no JVD Resp normal respiratory effort and clear to auscultation bilaterally Cardio regular rhythm Rate: bradycardia GI non-distended Palpation: soft and tender epigastric, LUQ and RUQ; Negative for guarding or rebound tenderness present Neuro CN's II-XII intact bilaterally, moves all extremities and no sensory deficits noted Sensorium / Orientation: alert Motor Exam: strength 5/5 throughout Psych mental status grossly normal MDM MDM MDM Narrative Medical decision making narrative: Differential diagnosis includes gastritis, gastroesophageal reflux disease, pancreatitis, peptic ulcer disease, duodenal ulcer, cholecystitis, cholelithiasis, cardiac dysrhythmia, cardiac ischemia, pneumonia, and electrolyte abnormality. EKG will be obtained to assess for cardiac dysrhythmia and cardiac ischemia. Chest x-ray will be obtained to assess for pneumonia and pneumothorax. CBC will be obtaine (more content not included)... Normal [facility] Erythrocyte distribution wid th ratioOrdered By: Jorgito Schaffer on 02-20-2024 Erythrocyte distribution width (RBC) [Ratio] 13.6 % 11.6-14.6 [facility] Erythrocyte distribution wid th standard deviationOrdered By: Jorgitomeghan Schaffer on 02-20-2024 Erythrocyte distribution width (RBC) [Entitic vol] 46.1 fL 35.1-43.9 [facility] Hematocrit Auto (Bld) [Volum e fraction]Ordered By: Jorgitomeghan Schaffer on 02-20-2024 Hematocrit (Bld) [Volume fraction] 45.1 % 40-54 [facility] Immature granulocytes/100 WB C Auto (Bld)Ordered By: Jorgitomeghan Schaffer on 02-20-2024 Immature granulocytes/100 WBC (Bld) 0.300 % 0.0-0.9 [facility] Comment on above: IG% - Immature Granu locytes (promyelocytes, myelocytes and metamyelocytes) > 1% indicates that a LEFT SHIFT is Present. Ketones Test strip Ql (U)Ord ered By: Jorgito Schaffer on 02-20-2024 Ketones Ql (U) 15 mg/dl Negative [facility] L501.4020on 02-20-2024 TROPONIN-I HS 5 pg/mL Normal 3.0-78.0 [facility] Comment on above: Result Comment: Aileen calderon Note: New Test Units and Gender Specific Reference Ranges. For more information see Policy Stat Procedure [place] High Sensitivity Troponin (TNIH) and attachments. Performed By: #### L 501.4020, L500.3400 #### [facility] [address] [place], [address] L501.5425on 02-20-2024 TROPONIN-I HS 6 pg/mL Normal 3.0-78.0 [facility] Comment on above: Order Comment: 1Y Result Comment: Plea Note: New Test Units and Gender Specific Reference Ranges. For more information see Policy Stat Procedure [place] High Sensitivity Troponin (TNIH) and attachments. Performed By: #### L 501.2450, L500.2500, L100.0100, L501.5425 ####[facility] [id number] [place], [address] Laboratory - Chemistry and C hemistry - challengeOrdered By: Jorgito Schaffer on 02-20-2024 ALP [Catalytic activity/Vol] 68 U/L 45-117 [facility] ALT [Catalytic activity/Vol] 201 U/L 16-61 [facility] Globulin (S) [Mass/Vol] 3.3 g/dL 2.2-4.2 W [facility] CO2 [Moles/Vol] 27.0 mmol/L 21.0-32.0 [facility] Lipase [Catalytic activity/Vol] 39 U/L 13-75 [facility] Comment on above: Please note:LIPASE r evised reference range effective 23. New Lipase methodology. Expected to produce lower values than the previous assay method. NEW Reference Range: 13 - 75 U/L Urea nitrogen/Creatinine [Mass ratio] 21.9 mg/mg 10-20 [facility] Laboratory - CoagulationOrde red By: Jorgito Schaffer on 02-20-2024 INR Coag (Bld) [Relative time] 1.1 {INR} [facility] PT Coag (PPP) [Time] 13.8 s 11.7-14.9 [facility] - Hematology and Cell countsOrdered By: Jorgito Schaffer on 02-20-2024 MCH (RBC) [Entitic mass] 29.8 pg 27.0-32.0 [facility] MCHC (RBC) [Mass/Vol] 32.6 g/dL 32-36 [facility] Nucleated RBC/100 WBC (Bld) [Ratio] 0 % 0-5 [facility] Platelet mean volume (Bld) [Entitic vol] 10.5 fL 6.2-12.0 [facility] Platelets (Bld) [#/Vol] 249 10*3/uL 150-450 [facility] Lipaseon 02-20-2024 Lipase [Catalytic activity/Vol] 39 U/L Normal 13-75 [facility] Comment on above: Order Comment: 1Y Result Comment: Aileen calderon note: LIPASE revised reference range effective 23. New Lipase methodology. Expected to produce lower values than the previous assay method. NEW Reference Range: 13 - 75 U/L Performed By: #### L 501.2450, L500.2500, L100.0100, L501.5425 ####[facility] [id number] [place], [address] Liver Profileon 02-20-2024 Albumin [Mass/Vol] 3.6 g/dL Normal 3.2-5.0 [facility] Comment on above: Performed By: #### L [id number], L500.3400 #### [facility] [address] [place], [address] ALK P 68 U/L Normal 45-117 [facility] Comment on above: Performed By: #### L [id number], L500.3400 #### [facility] [address] [place], [address] ALT [Catalytic activity/Vol] 201 U/L High 16-61 [facility] Comment on above: Performed By: #### L [id number], L500.3400 #### [facility] [address] [place], [address] AST [Catalytic activity/Vol] 297 U/L High 15-37 [facility] Comment on above: Performed By: #### L [id number], L500.3400 #### [facility] [address] [place], [address] Bilirubin [Mass/Vol] 2.50 mg/dL High 0.20-1.00 [facility] Comment on above: Result Comment: For patients on eltrombopag therapy, use of Dimension [place] TBIL is not recommended. Performed By: #### L [id number], L500.3400 #### [facility] [address] [place], [address] Bilirubin.direct [Mass/Vol] 1.26 mg/dL High 0.00-0.30 [facility] Comment on above: Performed By: #### L [id number], [id number] #### [facility] [address] [place], [address] Globulin (S) [Mass/Vol] 3.3 g/dL Normal 2.2-4.2 W [facility] Comment on above: Performed By: #### L [id number], L500.3400 #### [facility] [address] [place], [address] T PROT 6.9 g/dL Normal 6.4-8.2 [facility] Comment on above: Performed By: #### L [id number], [id number] #### [facility] [address] [place], [address] Mucus LM Ql (Urine sed)Order ed By: Jorgito Schaffer on 02-20-2024 Mucus Ql (Urine sed) 3+ /hpf [facility] Nitrite Test strip Ql (U)Ord ered By: Jorgito Schaffer on 02-20-2024 Nitrite Ql (U) Negative Negative [facility] No Panel InformationOrdered By: Jorgito Schaffer on 02-20-2024 Troponin I High Sensitivity 5 pg/mL 3.0-78.0 [facility] Comment on above: Please Note: New Precious t Units and Gender Specific Reference Ranges. For more information see Policy Stat Procedure [place] High Sensitivity Troponin (TNIH) and attachments. Urine RBC 0 SEEN /hpf 0-5 [facility] Estimated Creatinine Clearance Calc 68.24 ml/min [facility] Estimated GFR (MDRD) Amer 81 mL/min >60 [facility] Comment on above: GFR Calc Estimated GFR (MDRD) Non-Af Amer 67 mL/min >60 [facility] Comment on above: Non- GFR Calc Reactive Lymphocytes 1+ [facility] Partial Thromboplast Timeon 02-20-2024 aPTT Coag (Bld) [Time] 22.8 s Low 24.1-36.2 [facility] Comment on above: Performed By: #### L 300.3900, L300.4310 #### [facility] [address] [place], [address] Protein Test strip Ql (U)Ord ered By: Jorgito Schaffer on 02-20-2024 Protein Ql (U) 30 mg/dl Negative [facility] Prothrombin Time w/INRon INR Coag (PPP) [Relative time] 1.1 {INR} Normal [facility] Comment on above: Performed By: #### L 300.3900, L300.4310 #### [facility] [address] [place], [address] PT Coag (PPP) [Time] 13.8 s Normal 11.7-14.9 [facility] Comment on above: Performed By: #### L 300.3900, L300.4310 #### [facility] [address] [place], [address] RBC Auto (Bld) [#/Vol]Ordere d By: Jorgito Schaffer on 02-20-2024 RBC (Bld) [#/Vol] 4.93 10*6/uL 4.6-6.2 [facility] Serum or plasma calcium nacho urement (mass/volume)Ordered By: Jorgito Schaffer on 02-20-2024 Calcium [Mass/Vol] 9.0 mg/dL 8.5-10.1 [facility] Serum or plasma creatinine m easurement (mass/volume)Ordered By: Jorgito Schaffer on 02-20-2024 Creatinine [Mass/Vol] 1.14 mg/dL 0.70-1.30 [facility] Comment on above: The validity of the calculated GFR & GFRAA in patients over 70 years has not been determined. Clinical correlation is essential. Serum or plasma urea nitroge n measurement (mass/volume)Ordered By: Jorgito Schaffer on 02-20-2024 Urea nitrogen [Mass/Vol] 25 mg/dL 7-18 [facility] Squamous epithelial cells de tection in urine sediment by light microscopyOrdered By: Jorgito Schaffer on 02-20-2024 Epithelial cells.squamous LM Ql (Urine sed) 0 SEEN /hpf 0-5 [facility] Thin prep Papanicolaou smear with manual screeningOrdered By: Jorgito Schaffer on 02-20-2024 Thin prep Papanicolaou smear with manual screening 3.6 g/dL 3.2-5.0 [facility] Thin prep Papanicolaou smear with manual screening 297 U/L 15-37 [facility] Thin prep Papanicolaou smear with manual screening 7 -15 [facility] Urinalysis, Completeon 02-19 BACTERIA 1+ /hpf Normal None Seen [facility] Comment on above: Order Comment: CLEAN CATCH Performed By: #### L 400.0001 #### [facility] [address] [place], [address] Mucus Ql (Urine sed) 3+ /hpf Normal [facility] Comment on above: Order Comment: CLEAN CATCH Performed By: #### L 400.0001 #### [facility] [address] [place], [address] EPI,SQUAMOUS 0 SEEN Normal 0-5 [facility] Comment on above: Order Comment: CLEAN CATCH Performed By: #### L 400.0001 #### [facility] [address] [place], [address] RBC 0 SEEN Normal 0-5 [facility] Comment on above: Order Comment: CLEAN CATCH Performed By: #### L 400.0001 #### [facility] [address] [place], [address] WBC 0 SEEN Normal 0-5 [facility] Comment on above: Order Comment: CLEAN CATCH Performed By: #### L 400.0001 #### [facility] [address] [place], [address] Urine blood detectionOrdered By: Jorgito Schaffer on 02-20-2024 RBC Ql (U) 10 /ul Negative [facility] Urine clarityOrdered By: Deepti Schaffer on 02-20-2024 Clarity (U) Clear Clear [facility] Urine color determinationOrd ered By: Jorgito Schaffer on 02-20-2024 Color (U) Yellow Yellow [facility] Urine glucose detectionOrder ed By: Jorgito Schaffer on 02-20-2024 Glucose Ql (U) Normal mg/dl Normal [facility] Urine leukocyte esterase det ection by dipstickOrdered By: Jorgito Schaffer on 02-20-2024 Leukocyte esterase Test strip Ql (U) 25 /ul Negative [facility] Urine pHOrdered By: Jorgito hall on 02-20-2024 pH (U) 6.0 [pH] 5.0 - 8.0 [facility] Urine sediment bacteria coun t by microscopy (number/high power field)Ordered By: Jorgito Schaffer on 02-20-2024 Bacteria LM.HPF (Urine sed) [#/Area] 1 /[HPF] None Seen [facility] Urine specific gravity measu rementOrdered By: Jorgito Schaffer on 02-20-2024 Specific gravity (U) [Rel density] 1.025 1.002-1.030 [facility] Urine urobilinogen measureme ntOrdered By: Jorgito Schaffer on 02-20-2024 Urobilinogen Ql (U) 4 mg/dl Normal [facility] COVID Quick Testingon 2022 Result Negative [facility] Other Albumin [Mass/volume] in Ser um or PlasmaOrdered By: Rashmi Buchanan on 09-15-2022 Albumin [Mass/Vol] 4.0 g/dL 3.2-5.5 [facility] Basophils Auto (Bld) [#/Vol] Ordered By: Rashmi Buchanan on 09-15-2022 Basophils (Bld) [#/Vol] 0.1 10*3/uL 0.0-0.2 [facility] Basophils/100 WBC Auto (Bld) Ordered By: Rashmi Buchanan on 09-15-2022 Basophils/100 WBC (Bld) 0.7 % . [facility] Cholesterol [Mass/volume] in Serum or PlasmaOrdered By: Rashmi Buchanan on 09-15-2022 Cholesterol [Mass/Vol] 179 mg/dL 140-200 [facility] Comment on above: Chol less than 200 m g/dl low riskChol 201-239 mg/dl borderline riskChol 240 mg/dl and greater high risk Cholesterol in LDL Calc [Mas s/Vol]Ordered By: Rashmi Buchanan on 09-15-2022 Cholesterol in LDL [Mass/Vol] 111 mg/dL 0-100 [facility] Comment on above: LDL ATP III CLASSIFI CATIONLDL less than 100 mg/dL OptimalLDL 100-129 mg/dL Near or above optimalLDL 130-159 mg/dL Borderline highLDL 160-189 mg/dL HighLDL greater than 189 mg/dL Very high Cholesterol in VLDL Calc [Ma ss/Vol]Ordered By: Rashmi Buchanan on 09-15-2022 Cholesterol in VLDL [Mass/Vol] 13 mg/dL [facility] Creatinine and Glomerular fi ltration rate.predicted panel (S/P/Bld)Ordered By: Rashmi Buchanan on 09-15-2022 Creatinine [Mass/Vol] 1.00 mg/dL 0.64-1.27 [facility] Eosinophils Auto (Bld) [#/Vo l]Ordered By: aRshmi Buchanan on 09-15-2022 Eosinophils (Bld) [#/Vol] 0.2 10*3/uL 0.0-0.45 [facility] Eosinophils/100 WBC Auto (Bl d)Ordered By: Rashmi Buchanan on 09-15-2022 Eosinophils/100 WBC (Bld) 2.9 % . [facility] Erythrocyte distribution wid th Auto (RBC) [Ratio]Ordered By: Rashmi Buchanan on 09-15-2022 Erythrocyte distribution width (RBC) [Ratio] 13.9 % 12.0-14.8 [facility] Estimated glomerular filtrat ion rate (GFR) non- AmericanOrdered By: Rashmi Buchanan on 09-15-2022 GFR/1.73 sq M.predicted among non-blacks MDRD (S/P/Bld) [Vol rate/Area] > 60 mL/Min [facility] Globulin Calc (S) [Mass/Vol] Ordered By: Rashmi Buchanan on 09-15-2022 Globulin (S) [Mass/Vol] 3.1 g/dL [facility] Hematocrit Auto (Bld) [Volum e fraction]Ordered By: Rashmi Buchanan on 09-15-2022 Hematocrit (Bld) [Volume fraction] 45.5 % 38.8-50.0 [facility] Hemoglobin [Mass/volume] in BloodOrdered By: Rashmi Buchanan on 09-15-2022 Hemoglobin (Bld) [Mass/Vol] 15.0 g/dL 13.0-17.0 [facility] Leukocytes [#/volume] correc gilberto for nucleated erythrocytes in Blood by Automated counOrdered By: Rashmi Buchanan on 09-15-2022 WBC corrected for nucl RBC Auto (Bld) [#/Vol] 7.9 10*3/uL 4.1-10.5 [facility] Lymphocytes Auto (Bld) [#/Vo l]Ordered By: Rashmi Buchanan on 09-15-2022 Lymphocytes (Bld) [#/Vol] 3.3 10*3/uL 1.00-4.8 [facility] Lymphocytes/100 WBC Auto (Bl d)Ordered By: Rashmi Buchanan on 09-15-2022 Lymphocytes/100 WBC (Bld) 41.4 % . [facility] MCH Auto (RBC) [Entitic mass ]Ordered By: Rashmi Buchanan on 09-15-2022 MCH (RBC) [Entitic mass] 30.1 pg 27.5-35.2 [facility] MCHC Auto (RBC) [Mass/Vol]Or dered By: Rashmi Buchanan on 09-15-2022 MCHC (RBC) [Mass/Vol] 33.0 g/dL 32.5-35.6 [facility] MCV Auto (RBC) [Entitic vol] Ordered By: Rashmi Buchanan on 09-15-2022 MCV (RBC) [Entitic vol] 91.3 fL 83.5-101 [facility] Monocytes Auto (Bld) [#/Vol] Ordered By: Rashmi Buchanan on 09-15-2022 Monocytes (Bld) [#/Vol] 0.8 10*3/uL 0.0-0.8 [facility] Monocytes/100 WBC Auto (Bld) Ordered By: Rashmi Buchanan on 09-15-2022 Monocytes/100 WBC (Bld) 10.0 % . [facility] Neutrophils Auto (Bld) [#/Vo l]Ordered By: Rashmi Buchanan on 09-15-2022 Neutrophils (Bld) [#/Vol] 3.5 10*3/uL 1.8-7.7 [facility] Neutrophils/100 WBC Auto (Bl d)Ordered By: Rashmi Buchanan on 09-15-2022 Neutrophils/100 WBC (Bld) 45.0 % . [facility] No Panel InformationOrdered By: Rashmi Buchanan on 09-15-2022 25-Hydroxy Vitamin D Total 33.2 ng/mL 30-100 [facility] Comment on above: VITAMIN D STATUS 25( [place])VITAMIN D RANGE (ng/mL) Deficient <20 Insufficient 20 to <30Sufficient 30 to 100Reference: mAber MF,Aries NC, Marvin JACQUES, et al. Evaluation,treatment, and prevention of vitamin D deficiency; an Endocrine Society clinical practice guideline. JCEM. 2010; 96(7):1911-30. Estimated GFR () > 60 mL/Min [facility] Comment on above: GFR estimated refere nce range: According to KDOQI guidelines, <60 ml/min/1.73m2 is sufficient to diagnose a patient with chronic kidney disease. Pharmacy Creatinine Clearance (Chem N/A [facility] Prostate Specific Antigen Screen 0.560 ng/mL 0.000-4.000 [facility] Nucleated erythrocytes [Pres ence] in Blood by Automated countOrdered By: Rashmi Buchanan on 09-15-2022 Nucleated RBC Auto Ql (Bld) 0.0 /100{WBC} 0-0.5 [facility] Platelet mean volume Auto (B ld) [Entitic vol]Ordered By: Rashmi Buchanan on 09-15-2022 Platelet mean volume (Bld) [Entitic vol] 8.4 fL 6.6-10.1 [facility] Platelets Auto (Bld) [#/Vol] Ordered By: Rashmi Buchanan on 09-15-2022 Platelets (Bld) [#/Vol] 239 10*3/uL 150-450 [facility] Protein [Mass/volume] in Ser um or PlasmaOrdered By: Rashmi Buchanan on 09-15-2022 Protein [Mass/Vol] 7.1 g/dL 6.1-7.9 [facility] RBC Auto (Bld) [#/Vol]Ordere d By: Rashmi Buchanan on 09-15-2022 RBC (Bld) [#/Vol] 4.99 10*6/uL 3.90-5.60 [facility] Serum or plasma alanine rosales otransferase measurement without P-5'-P (enzymatic activiOrdered By: Rashmi Buchanan on 09-15-2022 ALT No additional P-5'-P [Catalytic activity/Vol] 21 U/L 1060 [facility] Serum or plasma albumin/glob ulin mass ratioOrdered By: Rashmi Buchanan on 09-15-2022 Albumin/Globulin [Mass ratio] 1.3 {ratio} [facility] Serum or plasma alkaline elin sphatase measurement (enzymatic activity/volume)Ordered By: Rashmi Buchanan on 09-15-2022 ALP [Catalytic activity/Vol] 43 U/L 32-92 [facility] Serum or plasma anion gap de terminationOrdered By: Rashmi Buchanan on 09-15-2022 Anion gap [Moles/Vol] 11.1 mmol/L 6.0-15.0 [facility] Serum or plasma aspartate am inotransferase measurement (enzymatic activity/volume)Ordered By: Rashmi Buchanan on 09-15-2022 AST [Catalytic activity/Vol] 24 U/L 10-42 [facility] Serum or plasma calcium nacho urement (mass/volume)Ordered By: Rashmi Buchanan on 09-15-2022 Calcium [Mass/Vol] 9.7 mg/dL 8.2-10.2 [facility] Serum or plasma chloride kika surement (moles/volume)Ordered By: Rashmi Buchanan on 09-15-2022 Chloride [Moles/Vol] 103 mmol/L 95-114 [facility] Serum or plasma glucose nacho urement (mass/volume)Ordered By: Rashmi Buchanan on 09-15-2022 Glucose [Mass/Vol] 76 mg/dL 70-100 [facility] Comment on above: ADA recommended refe rence rangeRandom Glucose Reference Range is dependent on time and content of last meal. Glucose of more than 200 mg/dL in a nonstressed, ambulatory subject supports the diagnosis of Diabetes Mellitus. Serum or plasma high density lipoprotein (HDL) cholesterol measurementOrdered By: Rashmi Buchanan on 09-15-2022 Cholesterol in HDL [Mass/Vol] 55 mg/dL 29-71 [facility] Comment on above: HDL CHOL ATP-III CLA SSIFICATION Cardiovascular RiskHDL > or equal to 60 mg/dL LOWHDL < 40 mg/dL HIGH Serum or plasma potassium me asurement (moles/volume)Ordered By: Rashmi Buchanan on 09-15-2022 Potassium [Moles/Vol] 4.5 mmol/L 3.5-5.1 [facility] Serum or plasma sodium measu rement (moles/volume)Ordered By: Rashmi Buchanan on 09-15-2022 Sodium [Moles/Vol] 137 mmol/L 136-146 [facility] Serum or plasma total biliru bin measurement (mass/volume)Ordered By: Rashmi Buchanan on 09-15-2022 Bilirubin [Mass/Vol] 1.8 mg/dL 0.3-1.2 [facility] Comment on above: Samples from patient s who have taken Naproxen have shown spurious elevation in Total Bilirubin levels. A metabolite of Naproxen, O-desmethylnaproxen, has been shown to interfere with the Enma method for measuring Total Bilirubin. Serum or plasma total carbon dioxide measurement (moles/volume)Ordered By: Rashmi Buchanan on 09-15-2022 CO2 [Moles/Vol] 27.4 mmol/L 22.0-30.0 [facility] Serum or plasma total choles terol/high density lipoprotein (HDL) cholesterol mass ratOrdered By: Rashmi Buchanan on 09-15-2022 Cholesterol.total/Darrion sterol in HDL [Mass ratio] 3.3 {ratio} <5.0 [facility] Serum or plasma urea nitroge n measurement (mass/volume)Ordered By: Rashmi Buchanan on 09-15-2022 Urea nitrogen [Mass/Vol] 16 mg/dL - [facility] TSH DL <= 0.005 mIU/L QnOrde red By: Rashmi Buchanan on 09-15-2022 TSH Qn 2.57 m[IU]/L 0.45-5.33 [facility] Triglyceride [Mass/volume] i n Serum or PlasmaOrdered By: Rashmi Buchanan on 09-15-2022 Triglyceride [Mass/Vol] 66 mg/dL 35-149 [facility] Comment on above: TRIG ATP III CLASSIF ICATIONTRIG less than 150 mg/dL NormalTRIG 150-199 mg/dL Borderline highTRIG 200-500 mg/dL High TRIG greater than 500 mg/dL Very highStandard traceable to the Center for Disease Conrtrol and Prevention (CDC) test method. WBC Auto (Bld) [#/Vol]Ordere d By: Rashmi Buchanan on 09-15-2022 WBC (Bld) [#/Vol] 7.9 10*3/uL 4.1-10.5 [facility] COVID Quick Testingon 2021 Result Negative [facility] Other XR hand RT min 3V*on 021 XR hand RT min 3V* [facility] Doutíssima Other XR hand RT min 3V* [facility] [address] Doutíssima Other XR hand RT min 3V* [address] [place] [address] Dout[facility] Other XR hand RT min 3V* [place] [address] [facility] Other XR hand RT min 3V* XRay Report [facility] Other XR hand RT min 3V* Signed [facility] Other XR hand RT min 3V* Patient: Basilio Rankin MR#: [id number] [facility] Other XR hand RT min 3V* [address] [facility] Other XR hand RT min 3V* : 1950 Acct:[id number] [facility] Other XR hand RT min 3V* Age/Sex: 70 / M ADM Date: 07/07/21 [facility] Other XR hand RT min 3V* Loc: [facility] [place]: [facility] : [facility] [facility] Other XR hand RT min 3V* Attending Dr: Juan J Mcguire DO [facility] Other XR hand RT min 3V* Ordering Provider: Juan J Mcguire DO [facility] Other XR hand RT min 3V* Date of Service: 07/07/21 [facility] Other XR hand RT min 3V* XR/XR hand RT min 3V*: Right hand pain [facility] Other XR hand RT min 3V* Copies to: Juan J Mcguire DO [facility] Other XR hand RT min 3V* Right hand 07/07/2021. [facility] Other XR hand RT min 3V* CLINICAL DATA: Right hand pain. [facility] Other XR hand RT min 3V* FINDINGS: 3 views of the right hand were obtained. [facility] Other XR hand RT min 3V* No acute fracture or dislocation is identified. Mild degenerative changes are seen at the first [facility] Other XR hand RT min 3V* carpal-metacarpal joint. No bony erosion or destruction is visualized. No significant soft tissue [facility] Other XR hand RT min 3V* swelling is noted. [facility] Other XR hand RT min 3V* XR/XR hand RT min 3V* [facility] Other XR hand RT min 3V* IMPRESSION: Mild degenerative changes at the first [facility] joint. No acute bony abnormality. [facility] Other XR hand RT min 3V* Impression dictated by: Que Polk Jr., M.D.07/07/2021 4:02 PM [facility] Other XR hand RT min 3V* Dictation Location: [place] [address] [facility] Other XR hand RT min 3V* Transcribed By: PARAG 07/07/21 1602 [facility] Other XR hand RT min 3V* Dictated By: Que Polk Jr, MD 07/07/21 [facility] Other XR hand RT min 3V* Signed By: [facility] Other XR hand RT min 3V* 07/07/21 1602 [facility] [employer] Other CRYOTHERAPY SKIN LESION [facility] Vital Signs Date Time Vital Sign Value Performing Clinician Facility 08-20-2025 09:19-0500 Body height 175.26 cm Rashmi Buchanan DO Work Phone: [facility] 08-20-2025 09:19-0500 Body mass index (BMI) [Ratio] 25.8 kg/m2 Rashmi Pickarders DO Work Phone: [facility] 08-20-2025 09:19-0500 Body temperature 97.9 [degF] Rashmi Buchanan DO Work Phone: [facility] 08-20-2025 09:19-0500 Body weight 79.37 kg Rashmi Buchanan DO Work Phone: [facility] 08-20-2025 09:19-0500 Diastolic blood pressure 79 mm[Hg] Rashmi Buchanan DO Work Phone: [facility] 08-20-2025 09:19-0500 Heart rate 63 /min Rashmi Buchanan DO Work Phone: [facility] 08-20-2025 09:19-0500 Respiratory rate 18 /min Rashmi Buchanan DO Work Phone: [facility] 08-20-2025 09:19-0500 SaO2% (BldA) [Mass fraction] 96 % Rashmi Buchanan DO Work Phone: [facility] 08-20-2025 09:19-0500 Systolic blood pressure 114 mm[Hg] Rashmi Buchanan DO Work Phone: [facility] 05-21-2025 10:36-0400 Diastolic blood pressure 78 mm[Hg] Rashmi Buchanan DO Work Phone: [facility] 05-21-2025 10:36-0400 Heart rate 55 /min Rashmi Buchanan DO Work Phone: [facility] 05-21-2025 10:36-0400 Respiratory rate 16 /min Rashmi Buchanan DO Work Phone: [facility] 05-21-2025 10:36-0400 SaO2% (BldA) [Mass fraction] 98 % Rashmi Buchanan DO Work Phone: [facility] 05-21-2025 10:36-0400 Systolic blood pressure 111 mm[Hg] Rashmi Buchanan DO Work Phone: [facility] 05-21-2025 08:41-0400 Body height 175.26 cm Rashmi Buchanan DO Work Phone: [facility] 05-21-2025 08:41-0400 Body weight 78.1 kg Rashmi Buchanan DO Work Phone: [facility] 02-20-2024 11:37-0400 Body temperature 98.1 [degF] [facility] 02-20-2024 11:37-0400 Diastolic blood pressure 74 mm[Hg] [facility] 02-20-2024 11:37-0400 Heart rate 76 /min [facility] 02-20-2024 11:37-0400 Respiratory rate 18 /min [facility] 02-20-2024 11:37-0400 SaO2% (BldA) [Mass fraction] 98 % [facility] 02-20-2024 11:37-0400 Systolic blood pressure 115 mm[Hg] [facility] 02-20-2024 01:06-0400 Body height 176.53 cm [facility] 02-20-2024 01:06-0400 Body mass index (BMI) [Ratio] 31.1 kg/m2 [facility] 02-20-2024 01:06-0400 Body weight 96.9 kg [facility] 09-20-2023 15:45-0500 Body height 176.53 cm Rashmi Buchanan Other [facility] [employer] Other 09-20-2023 15:45-0500 Body mass index (BMI) [Ratio] 25.91 kg/m2 Rashmi Buchanan Other [facility] [employer] Other 09-20-2023 15:45-0500 Body temperature 97.9 [degF] Rashmi Buchanan Other [facility] Other 09-20-2023 15:45-0500 Body weight 80.74 kg Rashmi Buchanan Other [facility] Other 09-20-2023 15:45-0500 Diastolic blood pressure 62 mm[Hg] Rashmi Buchanan Other [facility] Other 09-20-2023 15:45-0500 SaO2% (BldA) [Mass fraction] 98 % Rashmi Buchanan Other [facility] Other 09-20-2023 15:45-0500 Systolic blood pressure 98 mm[Hg] Rashmi Buchanan Other [facility] Other 04-05-2023 13:45-0400 Body height 176.53 cm Rashmicaitie Pickarders Other [facility] Other 04-05-2023 13:45-0400 Body mass index (BMI) [Ratio] 25.82 kg/m2 Rashmicaitie Pickarders Other [facility] Other 04-05-2023 13:45-0400 Body temperature 98.2 [degF] Rashmi Buchanan Other [facility] Other 04-05-2023 13:45-0400 Body weight 80.47 kg Rashmi Buchanan Other [facility] Other 04-05-2023 13:45-0400 Diastolic blood pressure 72 mm[Hg] Rashmi Buchanan Other [facility] Other 04-05-2023 13:45-0400 Respiratory rate 18 /min Rashmi Pickarders Other [facility] Other 04-05-2023 13:45-0400 SaO2% (BldA) [Mass fraction] 97 % Rashmi Buchanan Other [facility] Other 04-05-2023 13:45-0400 Systolic blood pressure 118 mm[Hg] Rashmi Buchanan Other [facility] Other 12-31-2021 10:45-0400 Body height 176.53 cm Rashmi Buchanan Other [facility] Other 12-31-2021 10:45-0400 Body mass index (BMI) [Ratio] 26.98 kg/m2 Rashmi Buchanan Other [facility] Other 12-31-2021 10:45-0400 Body temperature 97.7 [degF] Rashmi Buchanan Other [facility] Other 12-31-2021 10:45-0400 Body weight 84.1 kg Rashmi Buchanan Other [facility] Other 12-31-2021 10:45-0400 Diastolic blood pressure 72 mm[Hg] Rashmi Buchanan Other [facility] Other 12-31-2021 10:45-0400 Respiratory rate 16 /min Rashmicaitie Pickarders Other [facility] Other 12-31-2021 10:45-0400 SaO2% (BldA) [Mass fraction] 97 % Rashmi Buchanan Other [facility] Other 12-31-2021 10:45-0400 Systolic blood pressure 118 mm[Hg] Rashmi Buchanan Other [facility] Other 09-16-2021 12:15-0500 Body height 176.53 cm Rashmi Buchanan Other [facility] Other 09-16-2021 12:15-0500 Body mass index (BMI) [Ratio] 26.37 kg/m2 Rashmi Buchanan Other [facility] Other 09-16-2021 12:15-0500 Body temperature 97.2 [degF] Rashmi Buchanan Other [facility] Other 09-16-2021 12:15-0500 Body weight 82.19 kg Rashmi Buchanan Other [facility] Other 09-16-2021 12:15-0500 Diastolic blood pressure 78 mm[Hg] Rashmi Buchanan Other [facility] Other 09-16-2021 12:15-0500 Respiratory rate 16 /min Rashmi Buchanan Other [facility] Other 09-16-2021 12:15-0500 SaO2% (BldA) [Mass fraction] 98 % Rashmi Buchanan Other [facility] Other 09-16-2021 12:15-0500 Systolic blood pressure 114 mm[Hg] Rashmi Buchanan Other [facility] Other 08-29-2021 10:45-0500 Body height 176.53 cm Juan J Shayla Other [facility] Other 08-29-2021 10:45-0500 Body mass index (BMI) [Ratio] 26.34 kg/m2 Juan J Mcguire Other [facility] Other 08-29-2021 10:45-0500 Body weight 82.1 kg Juan J Shayla Other [facility] Other 07-07-2021 16:30-0400 Body height 176.53 cm Juan J Shayla Other [facility] Other 07-07-2021 16:30-0400 Body mass index (BMI) [Ratio] 25.76 kg/m2 Juan J Mcguire Other [facility] Other 07-07-2021 16:30-0400 Body weight 80.29 kg Juan J Mcguire Other [facility] Other Encounters Encounter Date Encounter Type Care Provider Facility Start: 08-20-2025 End: 08-20-2025 ambulatory Rashmi Buchanan DO Work Phone: -[facility] Start: 08-20-2025 End: 08-20-2025 Patient encounter procedure Whitney Briones [employer]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 -[facility] Work Phone: Start: 05-21-2025 End: 05-21-2025 ambulatory Erickson Colunga Facility:[facility] Start: 05-21-2025 Non-patient / Non-visit Erickson Aguilar MD -[facility] Work Phone: Start: 02-28-2025 End: 02-28-2025 ambulatory MEI KELLEY Facility:[facility] Start: 09-12-2024 End: 09-12-2024 ambulatory Rashmi Buchanan Facility:[facility] Start: 09-12-2024 Encounter for genera l adult medical examination without abnormal findings Rashmi Buchanan [facility] Start: 08-30-2024 End: 08-30-2024 Bamboo flowsheet Ehsan Coronado DO Work Phone: [facility] Start: 08-30-2024 End: 08-30-2024 Bamboo flowsheet Ehsan Coronado DO Work Phone: [facility] Start: 08-30-2024 End: 08-30-2024 ambulatory EHSAN CORONADO Not Available Start: 08-29-2024 End: 08-29-2024 Telephone encounter Mei Kelley MD Work Phone: Neurology Comment on above: Insurance Authorizat ion Start: 08-28-2024 End: 08-28-2024 ambulatory MEI KELLEY Facility:[facility] Start: 08-28-2024 End: 08-28-2024 Patient encounter procedure Mei Kelley MD Work Phone: Dermatology Comment on above: Skin exam, screening for cancer (Primary Dx); Psoriasis; Diffuse photodamage of skin; Seborrheic keratosis; Polyarticular psoriatic arthritis (HCC) Start: 04-05-2024 Refill Mei Kelley MD Work Phone: Dermatology Comment on above: Refill Request Start: 03-10-2024 Telephone encounter Mei walker MD Work Phone: Dermatology Comment on above: Medication Problem Start: 03-02-2024 End: 03-02-2024 ambulatory Whitney MULLINS Facility:[facility] Start: 03-02-2024 ambulatory Whitney MULLINS Faci lity:[facility] Start: 02-21-2024 End: 02-21-2024 ambulatory Adela Dalton Facility:[facility] Start: 02-20-2024 ambulatory Whitney MULLINS Faci lity:[facility] Start: 02-20-2024 End: 02-22-2024 Evaluation and management of inpatient Basilio Murphy Facility:[facility] Start: 02-20-2024 Evaluation and manag ement of inpatient [facility] Work Phone: Start: 02-02-2024 Refill Mei Kelley MD Work Phone: [address] [place] [address] Comment on above: Refill Request Start: 12-08-2023 Refill Mei Kelley MD Work Phone: Dermatology Comment on above: Med Change Request Start: 11-23-2023 Refill Mei Kelley MD Work Phone: Dermatology Comment on above: Refill Request; Refi ll Request Start: 11-22-2023 Telephone encounter Mei walker MD Work Phone: [address] [place] [address] Comment on above: Opened In Error Start: 11-15-2023 Telephone encounter Mei walker MD Work Phone: Dermatology Comment on above: Insurance Authorizat ion Start: 09-20-2023 End: 09-20-2023 ambulatory Rashmi Buchanan Other [facility] Other Start: 09-20-2023 Patient encounter procedure Rashmi Buchanan [facility] Start: 08-26-2023 End: 08-26-2023 Patient encounter procedure Mei Kelley MD Work Phone: Dermatology Comment on above: Psoriasis (Primary D x); Skin exam, screening for cancer; AK (actinic keratosis) Start: 06-03-2023 Refill Mei Kelley MD Work Phone: Dermatology Comment on above: Refill Request (Enbr el) Start: 04-05-2023 End: 04-05-2023 ambulatory Rashmi Buchanan Other [facility] Other Start: 04-05-2023 Patient encounter procedure Rashmi Buchanan [facility] Start: 09-15-2022 Telephone encounter Rashmi Pickarders [facility] Start: 09-15-2022 End: 09-15-2022 ambulatory DO Rashmi Buchanan Work Phone: [facility] Work Phone: Start: 09-15-2022 End: 09-15-2022 Patient encounter procedure DO Rashmi Buchanan Work Phone: [facility] Start: 08-10-2022 End: 08-10-2022 Patient encounter procedure Mei Kelley MD Work Phone: Dermatology Comment on above: Psoriasis (Primary D x); Pruritus Start: 05-11-2022 End: 05-11-2022 ambulatory Rashmi Buchanan Other [facility] Other Start: 05-11-2022 Telephone encounter Rashmi Buchanan [facility] Start: 12-31-2021 End: 12-31-2021 ambulatory Rashmi Pickarders Other [facility] Other Start: 12-31-2021 Office outpatient vi sit 15 minutes Rashmi Buchanan [facility] Start: 10-30-2021 End: 10-30-2021 ambulatory Rashmi Buchanan Other [facility] Other Start: 10-30-2021 Telephone encounter Rashmi Hernandez [facility] Start: 09-16-2021 End: 09-16-2021 ambulatory Rashmi Buchanan Other [facility] Other Start: 09-16-2021 [facility] visit new patient Rashmi Pierce s [facility] Start: 09-16-2021 Patient encounter procedure Rashmi Buchanan [facility] Start: 09-15-2021 End: 09-15-2021 ambulatory Juan J Mcguire Other [facility] Other Start: 09-15-2021 Postop follow up vis it related to original px Juan J Mcguire [facility] Start: 08-29-2021 End: 08-29-2021 ambulatory Juan J Mcguire Other [facility] Other Start: 08-29-2021 Encounter for other preprocedural examination Juan J Mcguire [facility] Start: 08-29-2021 Office outpatient vi sit 15 minutes Juan J Mcguire [facility] Start: 07-07-2021 Office outpatient ne w 30 minutes Juan J Mcguire [facility] Procedures Date Procedure Procedure Detail Performing Clinician Start: 08-30-2024 Computerized ophthal bar imaging retina Ehsan Coronado DO Work Phone: Start: 08-30-2024 End: 08-30-2024 Oph medical xm&eval comprhnsv estab pt 1/> Epiretinal membrane (ERM) of right eye Ehsan Coronado DO Work Phone: Comment on above: Epiretinal membrane (ERM) of right eye (Primary Dx); Age-related nuclear cataract of both eyes; Dry eyes; Blepharitis of upper and lower eyelids of both eyes, unspecified type Start: 02-20-2024 Ultrasonography of abdomen Start: 02-20-2024 Computed tomography of abdomen and pelvis with intravenous contrast Start: 02-20-2024 Plain chest X-ray Start: 08-26-2023 CRYOTHERAPY SKIN LESION Mei Kelley MD Work Phone: History of decompres dannie of median nerve History of carpal tunnel release DO Rashmi Buchanan Work Phone: Plan of Treatment Date Care Activity Detail Author Start: 03-26-2027 Urine microalbumin profile DTa P,Tdap,Td Vaccine (3 - Td or Tdap) [facility] Start: 05-21-2025 [facility] Start: 02-28-2025 End: 02-28-2025 Patient encounter procedure 02/28/2025 11:00 AM EDT Office Visit Dermatology [address] [place] [address] [place], [place] [id number] Mei Kelley MD [address] [place] [address] [address] [place], [place] [id number] Return in about 6 months (around 02/25/2025). Dermatology Comment on above: Return in about 6 mo nths (around 02/25/2025). Start: 08-30-2024 End: 08-30-2024 Patient encounter procedure 08/30/2024 8:45 AM EST Office Visit [facility] [address] [place] [id number] Ehsan Coronado DO [address] [place] [address] Arrived [facility] Comment on above: Arrived Start: 08-28-2024 End: 08-28-2024 Patient encounter procedure 08/28/2024 4:30 PM EST Office Visit Dermatology [address] [place] [address] [address] [place], [place] [id number] Mei Kelley MD [address] [place] [address] [place] [address] skin check Dermatology Comment on above: skin check Start: 06-11-2024 Covid-19 Vaccine ( season) Covid-19 Vaccine ( season) [facility] Start: 06-11-2024 Influenza vaccination Influenza Vacc ine (#1) [facility] Start: 02-21-2024 [facility] Start: 02-20-2024 Hospital admission, emergency, from emergency room, medical nature [facility] Start: 02-20-2024 Admission procedure [facility] Start: 02-20-2024 [facility] Start: 10-11-2023 Advance Directive Discussion Advance Directive Discussion [facility] Start: 10-11-2023 Behavioral Health Screening Behavioral Health Screening [facility] Start: 10-11-2023 Depression Assessment Depression Ass essment [facility] Start: 09-09-2023 Covid-19 Vaccine ( season) Covid-19 Vaccine ( season) [facility] Start: 06-11-2023 Influenza vaccination INFLUENZA (#1) [facility] Start: 10-11-2022 ADVANCE DIRECTIVE DISCUSSION ADVANCE DIRECTIVE DISCUSSION [facility] Start: 10-11-2022 DEPRESSION ASSESSMENT DEPRESSION ASS ESSMENT [facility] Start: 09-01-2022 COVID-19 VACCINE (6 - Moderna risk series) COVID-19 VACCINE (6 - Moderna risk series) [facility] Start: 10-11-2021 ADVANCE DIRECTIVE DISCUSSION ADVANCE DIRECTIVE DISCUSSION [facility] Start: 10-11-2021 DEPRESSION ASSESSMENT DEPRESSION ASS ESSMENT [facility] Start: 2012 RSV Vaccine (1 - 1-d ose 60+ series) RSV Vaccine (1 - 1-dose 60+ series) [facility] Start: 2012 RSV Vaccine (1 - Ris k 60-74 years 1-dose series) RSV Vaccine (1 - Risk 60-74 years 1-dose series) [facility] Start: 1997 COLOGUARD (FIT-DNA) COLOGUARD (FIT-D NA) [facility] Start: 1997 Colonoscopy COLONOSCOPY [facility] Start: 1997 COLORECTAL CANCER SCREENING COLORECTAL CANCER SCREENING [facility] Start: [address] [facility] Start: 1997 [facility] Start: 1997 Diabetes Screening Diabetes Screenin g [facility] Start: 1997 FECAL OCCULT BLOOD FECAL OCCULT BLOO D [facility] Start: 1997 Screening for malign ant neoplasm of colon [facility] Start: [address] [facility] Start: 1987 Lipid 1996 panel - S luis eduardo or Plasma Lipid Screening [facility] Start: 1987 Lipid panel Lipid Screening [facility] Start: 1987 LIPID SCREEN LIPID SCREEN [facility] Start: 1971 SHINGRIX VACCINE (1 of 2) SANDERS GRIX VACCINE (1 of 2) [facility] Start: 1971 Urine microalbumin profile DTA P,TDAP,TD (1 - Tdap) [facility] Start: 1970 Anxiety Screening Anxiety Screening [facility] Start: 1970 Depression Screening Depression Scre ening [facility] Start: 1970 HEPATITIS C SCREENING HEPATITIS C [facility] Start: 1970 Hepatitis C screening Hepatitis C [facility] Start: 1958 PNEUMOCOCCAL: 65+ (1 - PCV) PNEUMOCOCCAL: 65+ (1 - PCV) [facility] Start: 1952 Screening for malign ant neoplasm of colon [facility] Alanine aminotransfe rase [Enzymatic activity/volume] in Serum or Plasma [facility] Albumin [Mass/volume ] in Serum or Plasma [facility] Alkaline phosphatase [Enzymatic activity/volume] in Serum or Plasma [facility] Anion gap measurement [facility] Aspartate aminotrans ferase [Enzymatic activity/volume] in Serum or Plasma [facility] Bilirubin, total measurement [facility] BUN/Creatinine ratio [facility] Calcium [Mass/volume ] in Serum or Plasma [facility] Carbon dioxide, tota l [Moles/volume] in Serum or Plasma [facility] Chloride [Moles/volu me] in Serum or Plasma [facility] Creatinine [Moles/vo lume] in Serum or Plasma [facility] Erythrocyte mean corpuscular volume determination [facility] Glucose [Mass/volume ] in Serum or Plasma [facility] Hematocrit [Volume Fraction] of Blood [facility] Hemoglobin [Mass/vol ume] in Blood [facility] Leukocytes [#/volume ] in Blood [facility] Mean corpuscular hemoglobin concentration determination [facility] Mean corpuscular hemoglobin determination [facility] Measurement of renal function [facility] Neutrophil count [facility] Neutrophil percent differential count [facility] Patient Education [facility] Discharge Instructions Know your Meds [facility] Work Phone: Patient referral [facility] Work Phone: Platelets [#/volume] in Blood [facility] Potassium [Moles/vol ume] in Serum or Plasma [facility] Red blood cell count [facility] Red cell distributio n width determination [facility] Sodium [Moles/volume ] in Serum or Plasma [facility] Total protein measurement [facility] Urea nitrogen [Mass/volume] in Serum or Plasma [facility] Immun[facility] Immunization Date Immunization Notes Care Provider [facility] 08-08-2024 Seasonal trivalent influenza vaccine, adjuvanted, preservative free Rashmi Buchanan DO Work Phone: [facility] 08-08-2024 influenza virus vacc ine, unspecified formulation Ehsan Coronado DO Work Phone: [facility] 04-03-2024 COVID-19 (MODERNA) 12Y and older Rashmi Buchanan DO Work Phone: [facility] 08-09-2023 Influenza vaccine, quadrivalent, adjuvanted Rashmi Buchanan DO Work Phone: [facility] 07-15-2023 COVID-19 (MODERNA) 12Y and older Rashmi Buchanan DO Work Phone: [facility] 08-05-2022 Influenza vaccine, quadrivalent, adjuvanted Rashmi Buchanan DO Work Phone: [facility] 08-03-2022 tuberculin skin test ; purified protein derivative, multipuncture device Mei Kelley MD Work Phone: [facility] 07-07-2022 COVID-19 Moderna (BIvalent) Rashmi Buchanan Other [facility] 02-16-2022 COVID-19 Vaccine Mod haylie - Documentation Purposes Only Rashmi Buchanan Other [facility] 07-28-2021 Fluzone QIV High-Dos e 65YR+ Rashmi Buchanan DO Work Phone: [facility] 07-28-2021 influenza, seasonal, injectable Rashmi Buchanan Other [facility] 06-05-2021 COVID-19 mRNA-1273 (Moderna) DO Rashmi Buchanan Work Phone: [facility] 12-24-2020 COVID-19 Vaccine Mod haylie - Documentation Purposes Only Juan J Mcguire Other [facility] 11-26-2020 COVID-19 Vaccine Mod haylie - Documentation Purposes Only Juan J Mcguire Other [facility] 07-17-2020 Influenza vaccine, quadrivalent, adjuvanted Rashmi Buchanan DO Work Phone: [facility] 07-08-2020 influenza, seasonal, injectable Juan J Mcguire Other [facility] 11-09-2019 pneumococcal polysaccharide vaccine, 23 valent Juan J Mcguire Other [facility] 07-28-2019 tuberculin skin test ; purified protein derivative, multipuncture device Mei Kelley MD Work Phone: [facility] 07-26-2019 influenza, high dose seasonal, preservative-free Rashmi Buchanan DO Work Phone: [facility] 07-26-2019 tuberculin skin test ; purified protein derivative, multipuncture device Mei Kelley MD Work Phone: [facility] 07-11-2019 influenza, seasonal, injectable Juan J Shayla Other [facility] 10-18-2018 pneumococcal conjuga te vaccine, 13 valent Juan J Shayla Other [facility] 07-25-2018 influenza, injectabl e, quadrivalent, contains preservative Juan J Shayla Other [facility] 07-25-2018 influenza, injectabl e, quadrivalent, preservative free Rashmi Buchanan DO Work Phone: [facility] 05-17-2018 zoster vaccine recombinant Juan J Shayla Other [facility] 02-15-2018 zoster vaccine recombinant Juan J Shayla Other [facility] 07-27-2017 influenza, injectabl e, quadrivalent, preservative free Rashmi Buchanan DO Work Phone: [facility] 07-27-2017 influenza, injectabl e, quadrivalent, contains preservative Juan J Shayla Other [facility] 03-26-2017 tetanus toxoid, redu clif diphtheria toxoid, and acellular pertussis vaccine, adsorbed Juan J Shayla Other [facility] 07-17-2016 influenza, injectabl e, quadrivalent, contains preservative Juan J Shayla Other [facility] 07-17-2016 influenza, injectabl e, quadrivalent, preservative free Rashmi Buchanan DO Work Phone: [facility] 07-22-2015 influenza, seasonal, injectable, preservative free Rashmi Buchanan DO Work Phone: [facility] 09-17-2009 novel influenza-H1N1 -09, preservative-free, injectable Rashmi Buchanan DO Work Phone: [facility] 03-06-2009 tetanus and diphther ia toxoids, adsorbed, preservative free, for adult use (5 Lf of tetanus toxoid and 2 Lf of diphtheria toxoid) Rashmi Buchanan DO Work Phone: [facility] 03-06-2009 tetanus toxoid, redu clif diphtheria toxoid, and acellular pertussis vaccine, adsorbed Juan J Shayla Other [facility] 06-30-1995 hepatitis B vaccine, pediatric or pediatric/adolescent dosage Juan J Shayla Other [facility] 02-03-1995 hepatitis B vaccine, pediatric or pediatric/adolescent dosage Juan J Shayla Other [facility] 12-30-1994 hepatitis B vaccine, pediatric or pediatric/adolescent dosage Juan J Shayla Other [facility] Payers Date Payer Category Payer Self-pay [id number] 2022 Medicaid [employer] MEDICARE A DVANTAGE [id number] 2021 Medicare [id number] 2019 Medicare [id number] 1950 Unknown [id number] Medicare [id number] [id number] Unknown [id number] Unknown [id number] Unknown [id number] Unknown [id number] Unknown [id number] Unknown [id number] Unknown [id number] Unknown [id number] Unknown [id number] Unknown [id number] Social History Date Type Detail Facility Unknown if ever smoked [facility] Other Start: 2022 End: 08-30-2024 Sex Assigned At [employer] Other Start: 09-05-2021 End: 05-21-2025 Tobacco smoking status NHIS Never smoked tobacco [facility] Work Phone: Start: 02-21-2007 Alcohol intake Not Asked [facility] Start: 1950 Sex Assigned At Not on file [facility] Start: 07-31-2022 End: 08-10-2022 Exposure to SARS-CoV-2 (event) Not sure [facility] Work Phone: Start: 1950 Sex Assigned At Male [facility] Start: 2022 End: 08-30-2024 History of Social function [facility] National Score (1-100), lower number is lower risk 56 [facility] Start: 02-20-2024 Tobacco smoking status NHIS Unknown if ever smoked [facility] Start: 08-27-2023 Tobacco use and exposure Smokeless tobacco non-user [facility] Sex Male (finding) [facility] Clinical Notes 07-07-2021 to 02-28-2025 Ehsan Coronado, - 08/30/2024 8:45 AM ESTTelephone Encounter - Lashawn Rodríguez, [place] - 08/29/2024 10:42 AM ESTTelephone Encounter - Lashawn Rodríguez, [place] - 08/29/2024 10:42 AM EST Note Date & Type Note Facility 02-28-2025 Note HNO ID: [id number] Author: MEI KELLEY MD Service: ? Author Type: Physician Type: Progress Notes Filed: 02/28/2025 18:34 Note Text: Basilio is a 74-year-old male with a history of psoriasis, presenting for follow-up. Basilio reports significant improvement in psoriasis symptoms since starting Skyrizi, stating, It's like I never had it. He notes that his skin is clear, with only one small spot on his side that is barely noticeable. He expresses satisfaction with the treatment, stating, I feel like a whole new person. He also reports a reduction in joint pain, describing it as almost like it's going into remission. Basilio was previously on Enbrel for over 25 years but believes its efficacy waned over time. He is currently on Skyrizi, administered once every 12 weeks, and reports no side effects. He denies the need for topical creams and is pleased with the convenience of the current treatment regimen. Basilio also mentions that his blood pressure is consistently around 120/70 mmHg, and his cholesterol levels are well-managed, with total cholesterol way under the 200 kalyn. He is satisfied with his current insurance coverage for Skyrizi, noting that it is about 30% less expensive than Enbrel due to a discount program. IMPRESSION/PLAN: PSORIASIS Left Abdomen (side) - Lower, Left Hand - Posterior, Left Knee - Anterior, Left Lower Back, Left Lower Leg - Anterior, Right Hand - Posterior, Right Knee - Anterior, Right Lower Back, Right Lower Leg - Anterior BSA 40% on Enbrel for 20 years, now flaring despite Enbrel 50 mg once weekly. Advised switching to IL-23 inhibitor. See orders for details. Related Medications betamethasone dipropionate 0.05 % ointment Apply to affected area two times a day. Calcitriol 3 mcg/gram oint APPLY TO AFFECTED AREA(S) SPARINGLY EVERY NIGHT AT BEDTIME risankizumab-rzaa (SKYRIZI) 150 mg/mL injection Loading dose: Inject 150 mg at week 0 and week 4. risankizumab-rzaa (SKYRIZI) 150 mg/mL injection Inject 1 mL subcutaneously every 12 weeks. HPI: Mr. Rankin returns for f/u of psoriasis. Condition is much improved. Patient has no complaints. Patient is happy with results. Patient does have joint pain. Current treatment consists of: risankizumab-rzaa (SKYRIZI) 150 mg/mL injection Calcitriol 3 mcg/gram ointment betamethasone dipropionate 0.05 % ointment REVIEW OF SYSTEMS: Musculoskeletal: (-) joint pain Skin: (+) small lesion on side PE: Patient is alert and oriented in no acute distress. General: Well-nourished, well-developed. Left Abdomen (side) - Lower, Left Hand - Posterior, Left Knee - Anterior, Left Lower Back, Left Lower Leg - Anterior, Right Hand - Posterior, Right Knee - Anterior, Right Lower Back, Right Lower Leg - Anterior Minimal psoriatic lesions, small lesion on side, otherwise clear. PSORIASIS Left Abdomen (side) - Lower, Left Hand - Posterior, Left Knee - Anterior, Left Lower Back, Left Lower Leg - Anterior, Right Hand - Posterior, Right Knee - Anterior, Right Lower Back, Right Lower Leg - Anterior BSA 40% was on Enbrel; now BSA is 1% on Skyrizi. 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 - Previously on Enbrel for over 25 years with decreased efficacy over time. - Educated patient on the enzyme inhibition mechanism of Skyrizi, explaining its role in reducing inflammation associated with both skin and joint manifestations of psoriasis. - Discussed the importance of managing cardiovascular risk factors, including blood pressure and cholesterol levels, as psoriasis is a known cardiac risk factor. - Patient's blood pressure is well-controlled at 120/70 mmHg, and cholesterol levels are reportedly below 200 mg/dL. - Informed patient about studies showing decreased cardiac plaque formation with biologics like Humira, and the potential benefits of Skyrizi in overall health. - Patient is satisfied with current treatment and cost-effectiveness of Skyrizi compared to Enbrel. - Will renew Skyrizi prescription upon request; patient to contact nurse for renewal. - Scheduled follow-up in 6 months with blood work to be done prior to the appointment. Related Medications betamethasone dipropionate 0.05 % ointment Apply to affected area two times a day. Calcitriol 3 mcg/gram oint APPLY TO AFFECTED AREA(S) SPARINGLY EVERY NIGHT AT BEDTIME risankizumab-rzaa (SKYRIZI) 150 mg/mL injection Loading dose: Inject 150 mg at week 0 and week 4. risankizumab-rzaa (SKYRIZI) 150 mg/mL injection Inject 1 mL subcutaneously every 12 weeks. PSORIASIS WITH ARTHROPATHY (HCC) F/U: in 6 months. The documentation for this note was completed by Mike Kenney MA acting as scribe for Mei Kelley MD. February 28, 2025 10:52 AM. The HPI, PMH, EXAM, (more content not included)... [facility] 08-30-2024 Note Right Eye Quality was good. Scan locations included subfoveal. Progression has been stable. Findings include normal observations. Left Eye Quality was good. Scan locations included subfoveal. Progression has been stable. Findings include normal observations. Notes Good scan with normal appearance [facility] 08-30-2024 History of Presen t illness Narrative Images from the original note were not included. Assessment/Plan Diagnoses and all orders for this visit: Age-related nuclear cataract of both eyes - Cataract, OU: Observe for now without intervention. The patient was advised to contact us if any change or worsening of vision Dry eyes - Dry Eyes OU -- Environmental changes to minimize dryness and exposure and the use of artificial tears were recommended. Epiretinal membrane (ERM) of right eye - h/o of retinal tear both eyes (OU). Stable. Monitor. Blepharitis of upper and lower eyelids of both eyes, unspecified type - Blepharitis, posterior type OU - The patient exhibits inspissated meibomian glands. Warm compresses, lid massage and lid scrubs were recommended. documented in this encounter [facility] 08-29-2024 Telephone encounter Note Outcome Approved Drug risankizumab-rzaa (SKYRIZI) 150 mg/mL injection (starter kit) Dates 10/11/2023 - 08/29/2027 Patient notified. Copy sent to MR for scanning. [facility] 08-29-2024 Miscellaneous Notes Outcome Approved Drug risankizumab-rzaa (SKYRIZI) 150 mg/mL injection (starter kit) Dates 10/11/2023 - 08/29/2027 Patient notified. Copy sent to MR for scanning. ePA completed Status Sent to plan, with recent chart notes Drug risankizumab-rzaa (SKYRIZI) 150 mg/mL injection (starter kit) Waiting for determination. risankizumab-rzaa (SKYRIZI) 150 mg/mL injection (main) A pending Prior Authorization request for the Patient and Medication exist. - Prescriber details have been updated to match the prescriber directory. documented in this encounter [facility] 08-29-2024 Telephone encounter Note ePA completed Status Sent to plan, with recent chart notes Drug risankizumab-rzaa (SKYRIZI) 150 mg/mL injection (starter kit) Waiting for determination. risankizumab-rzaa (SKYRIZI) 150 mg/mL injection (main) A pending Prior Authorization request for the Patient and Medication exist. - Prescriber details have been updated to match the prescriber directory. [facility] 08-28-2024 History of Presen t illness Narrative Patient is here for SKIN CHECK appointment. Psoriasis- Current treatment consists of: Enbrel 50 mg SC once weekly Calcitriol Ointment 3 mcg/g Are you Currently having any flares: yes, on elbows, knees, flank He states he's knows he wont ever get any better but is happy with treatment he states he deals with a lot of stress so he notices it more when he is under stress. And the sun clears it up and hasn't had any sun in awhile. Last injection was last week(s) ago Last TB- 08/24/24 Joint pain: No Injection site reactions: No Fevers/Chills/Night Sweats : No Blurry vision /new vision changes : No New or worsening fatigue: No New or worsening shortness of breath: No New or chronic cough : No Knows not to get live vaccines. EXAM: Patient is alert and oriented in no acute distress. Arms and Legs, Left Buttock, Photodistributed, Right Buttock, Scalp, Trunk Findings as follows: Left Abdomen (side) - Lower, Left Hand - Posterior, Left Knee - Anterior, Left Lower Back, Left Lower Leg - Anterior, Right Hand - Posterior, Right Knee - Anterior, Right Lower Back, Right Lower Leg - Anterior Several scattered plaques with moderate erythema and adherent whitish scale Abdomen (Lower Torso, Anterior), Arms and Legs, Chest (Upper Torso, Anterior), Neck, Photodistributed, Torso - Posterior (Back) Diffusely scattered garza macules and patches on sun exposed areas. Arms, Head, Torso - Posterior (Back) Brown flat-topped papule. IMPRESSION/PLAN: Skin exam, screening for cancer (6) Left Buttock; Right Buttock; Scalp; Trunk; Photodistributed; Arms and Legs Psoriasis Left Hand - Posterior; Right Hand - Posterior; Left Knee - Anterior; Right Knee - Anterior; Left Lower Leg - Anterior; Right Lower Leg - Anterior; Left Abdomen (side) - Lower; Left Lower Back; Right Lower Back BSA 40% on Enbrel for 20 years, now flaring despite Enbrel 50 mg once weekly. Advised switching to IL-23 inhibitor. See orders for details. Related Medications betamethasone dipropionate 0.05 % ointment Apply to affected area two times a day. Calcitriol 3 mcg/gram oint APPLY TO AFFECTED AREA(S) SPARINGLY EVERY NIGHT AT BEDTIME risankizumab-rzaa (SKYRIZI) 150 mg/mL injection Loading dose: Inject 150 mg at week 0 and week 4. risankizumab-rzaa (SKYRIZI) 150 mg/mL injection Inject 1 mL subcutaneously every 12 weeks. Diffuse photodamage of skin (6) Chest (Upper Torso, Anterior); Abdomen (Lower Torso, Anterior); Torso - Posterior (Back); Photodistributed; Arms and Legs; Neck Monitor for new/changing lesions. Seborrheic keratosis (3) Torso - Posterior (Back); Head; Arms -Patient reassured of benign nature of lesion(s). 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 F/U: 6 month skin check The documentation for this note was completed by RENÉ Cunningham acting as scribe for Mei Kelley MD. August 28, 2024 4:11 PM. The HPI, PMH, EXAM, Findings/plan that were documented by my histology assistant, who was scribing during the encounter, were confirmed by me and I agree with the content of these sections. I have made any required additions or deletions to the HPI/PFSH/exam/findings/plan as needed. The physical exam and any procedures were performed by me, unless otherwise noted. Mei Kelley MD Medical Decision Making: Problems: Moderate: 1+ chronic illnesses with change Risk: Moderate: Drug management Medical Decision Making Level: 4 - Moderate documented in this encounter [facility] 08-28-2024 Note HNO ID: [id number] Author: MEI KELLEY MD Service: ? Author Type: Physician Type: Progress Notes Filed: 08/28/2024 16:47 Note Text: Patient is here for SKIN CHECK appointment. Psoriasis- Current treatment consists of: Enbrel 50 mg SC once weekly Calcitriol Ointment 3 mcg/g Are you Currently having any flares: yes, on elbows, knees, flank He states he's knows he wont ever get any better but is happy with treatment he states he deals with a lot of stress so he notices it more when he is under stress. And the sun clears it up and hasn't had any sun in awhile. Last injection was last week(s) ago Last TB- 08/24/24 Joint pain: No Injection site reactions: No Fevers/Chills/Night Sweats : No Blurry vision /new vision changes : No New or worsening fatigue: No New or worsening shortness of breath: No New or chronic cough : No Knows not to get live vaccines. EXAM: Patient is alert and oriented in no acute distress. Arms and Legs, Left Buttock, Photodistributed, Right Buttock, Scalp, Trunk Findings as follows: Left Abdomen (side) - Lower, Left Hand - Posterior, Left Knee - Anterior, Left Lower Back, Left Lower Leg - Anterior, Right Hand - Posterior, Right Knee - Anterior, Right Lower Back, Right Lower Leg - Anterior Several scattered plaques with moderate erythema and adherent whitish scale Abdomen (Lower Torso, Anterior), Arms and Legs, Chest (Upper Torso, Anterior), Neck, Photodistributed, Torso - Posterior (Back) Diffusely scattered garza macules and patches on sun exposed areas. Arms, Head, Torso - Posterior (Back) Brown flat-topped papule. IMPRESSION/PLAN: Skin exam, screening for cancer (6) Left Buttock; Right Buttock; Scalp; Trunk; Photodistributed; Arms and Legs Psoriasis Left Hand - Posterior; Right Hand - Posterior; Left Knee - Anterior; Right Knee - Anterior; Left Lower Leg - Anterior; Right Lower Leg - Anterior; Left Abdomen (side) - Lower; Left Lower Back; Right Lower Back BSA 40% on Enbrel for 20 years, now flaring despite Enbrel 50 mg once weekly. Advised switching to IL-23 inhibitor. See orders for details. Related Medications betamethasone dipropionate 0.05 % ointment Apply to affected area two times a day. Calcitriol 3 mcg/gram oint APPLY TO AFFECTED AREA(S) SPARINGLY EVERY NIGHT AT BEDTIME risankizumab-rzaa (SKYRIZI) 150 mg/mL injection Loading dose: Inject 150 mg at week 0 and week 4. risankizumab-rzaa (SKYRIZI) 150 mg/mL injection Inject 1 mL subcutaneously every 12 weeks. Diffuse photodamage of skin (6) Chest (Upper Torso, Anterior); Abdomen (Lower Torso, Anterior); Torso - Posterior (Back); Photodistributed; Arms and Legs; Neck Monitor for new/changing lesions. Seborrheic keratosis (3) Torso - Posterior (Back); Head; Arms -Patient reassured of benign nature of lesion(s). 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 F/U: 6 month skin check The documentation for this note was completed by RENÉ Cunningham acting as scribe for Mei Kelley MD. August 28, 2024 4:11 PM. The HPI, PMH, EXAM, Findings/plan that were documented by my histology assistant, who was scribing during the encounter, were confirmed by me and I agree with the content of these sections. I have made any required additions or deletions to the HPI/PFSH/exam/findings/plan as needed. The physical exam and any procedures were performed by me, unless otherwise noted. Mei Kelley MD Medical Decision Making: Problems: Moderate: 1+ chronic illnesses with change Risk: Moderate: Drug management Medical Decision Making Level: 4 - Moderate [facility] 04-05-2024 Telephone encounter Note Patient phones requesting refills as follows: RUDDY: 08/26/2023 FOV: 08/28/2024 Last filled 03/10/2024 Provider must fill or refuse request. Requested Prescriptions Pending Prescriptions Disp Refills Etanercept (ENBREL) 50 mg/mL (1 mL) injection 24 mL 3 Sig: Inject 1 mL subcutaneously two times a week. Please review and advise. Lashawn Rodríguez MA [facility] 04-05-2024 Miscellaneous Notes Patient phones requesting refills as follows: RUDDY: 08/26/2023 FOV: 08/28/2024 Last filled 03/10/2024 Provider must fill or refuse request. Requested Prescriptions Pending Prescriptions Disp Refills Etanercept (ENBREL) 50 mg/mL (1 mL) injection 24 mL 3 Sig: Inject 1 mL subcutaneously two times a week. Please review and advise. Lashawn Rodríguez MA documented in this encounter [facility] 03-10-2024 Telephone encounter Note Call placed to pt per Dr. Kelley. Patient was not home. Spoke to pt regarding medications, stated medications have been sent to the correct pharmacies. [facility] 03-10-2024 Miscellaneous Notes Call placed to pt per Dr. Kelley. Patient was not home. Spoke to pt regarding medications, stated medications have been sent to the correct pharmacies. 1 yr supply of Enbrel formatted for [facility] Calcitrol ointment formatted for [facility] Please review and advise Patient calling in requesting Rx for Enbrel to be called in for 12 refills, not 4 as ordered back in Nov. ([facility]) Patient is anxious because he is due for injection and pharmacy has not delivered yet. He states he spoke with them, and is hoping to get it today or tomorrow. He is also asking for a refill of Calcitrol ointment to be sent to local pharmacy at [facility] Patient would like a callback with update once ordered. [phone] (home) documented in this encounter [facility] 03-10-2024 Telephone encounter Note 1 yr supply of Enbrel formatted for [facility] Calcitrol ointment formatted for [facility] Please review and advise [facility] 03-10-2024 Telephone encounter Note Patient calling in requesting Rx for Enbrel to be called in for 12 refills, not 4 as ordered back in Nov. ([facility]) Patient is anxious because he is due for injection and pharmacy has not delivered yet. He states he spoke with them, and is hoping to get it today or tomorrow. He is also asking for a refill of Calcitrol ointment to be sent to local pharmacy at [facility] Patient would like a callback with update once ordered. [phone] (home) [facility] 02-22-2024 Note [facility] Medical Records Department [address] [place] [id number] Discharge Summary 02/22/24 0802 MR#: [id number] Acct: [id number] Name: BASILIO RANKIN Rep #: [id number] : 1950 73 From: Whitney MULLINS PA-C PCP: RASHMI BUCHANAN Status:ADM IN [place] [id number] Providers Date of Admission: 02/20/24 Primary Care Physician: RASHMI BUCHANAN Reason For Visit: ACUTE CHOLECYSTITIS Diagnosis Discharge Diagnosis (1) Cholecystitis, acute with cholelithiasis: Status: Acute Code(s): K80.00 - Calculus of gallbladder with acute cholecystitis without obstruction (2) Abnormal LFTs (liver function tests): Status: Acute Code(s): R79.89 - Other specified abnormal findings of blood chemistry (3) Conjugated hyperbilirubinemia: Status: Acute Code(s): E80.6 - Other disorders of bilirubin metabolism (4) Umbilical hernia without obstruction and without gangrene: Status: Acute Code(s): K42.9 - Umbilical hernia without obstruction or gangrene Medications at Discharge Home Medications etanercept 50 mg/mL (1 mL) subcutaneous syringe (Enbrel) 50 mg subcut QWEEK 02/20/24 pantoprazole 20 mg tablet,delayed release (Protonix) 20 mg PO DAILY 02/20/24 Hospital Course Operations cholecystecomy (with IOC) and herniorrhaphy (primary repair) Summary of Care Provided Minutes Spent on Discharge: 35 Hospital Course: Patient is a 73 y/o M who presented with 6 hour history abdominal pain in the epigastric region radiating into both upper quadrants. Patient contacted EMS and presented to the ED. CT scan of the ab/pel was obtained demonstrating no acute abnormalities. Abdominal u/s was obtained showing normal gallbladder wall thickness, mild pericholecystic fluid and positive sonographic Shaver's sign. Normal common bile duct. Reading was consistent with acute cholecystitis. Patient was admitted and placed on IV fluids and antibiotics. Dr. Murphy performed a laparoscopic cholecystectomy with intraoperative cholangiogram and primary umbilical hernia repair on 02/21/24. Patient tolerated the procedure well. He had an uneventful hospitalization. Liver enzymes are trending down. Upon discharge, patient was tolerating a regular diet. He denies nausea,vomiting, fever. He is passing flatus and urinating well. Post-operative instructions were reviewed at bedside. Physical Exam Const alert, oriented x3 and no apparent distress HEENT normocephalic and head/scalp atraumatic GI GI Narrative: Abdomen- soft, nontender. Incisions c/d/i. Slight erythema superior to the umbilical incision. No signs of infection. No active oozing noted. Weight / BMI Weight Weight: 213 lb 10.047 oz Body Mass Index (BMI) 31.1 ABG / Lab / Microbiology Data 02/22/24 11:47 02/22/24 07:05 Radiography Diagnostic Testing: Radiology Impression Cholangiogram 02/21/24 13:08 IMPRESSION: Filling defects in the proximal common hepatic ducts concerning for retained stones. Electronically Signed: Shiv Pérez MD at 15:49 EDT , D/C Instructions Discharge Diet: Light diet - advance as tolerated Discharge Activity: May Not Drive (3-5 days from surgery date) and May Shower (tomorrow) Lifting Restrictions: 15 pounds for 4 weeks Call your doctor if your incision/area has: Continuous Slow Oozing, Sudden Increased Bleeding, Increased Pain/ Swelling, Increased Redness, Foul Smelling Discharge and Swelling at the incision site Call your doctor if you observe: Fever of 101 or Higher Suture Line Care: Avoid Pulling/Pushing and Avoid Pinching/Bending Remove Dressing in: 1 day (Leave umbilical dressing in place for 5 days. Remove all other plastic dressings in 1 day) Cleanse incision/area with: Soap Water Please Follow Up With: Basilio Murphy MD When: Please call to schedule a follow-up at [phone] for 10-14 days after your surgery. You will need to obtain blood work just prior to the follow-up appointment. Order has already been placed. Meaningful Use Info Meaningful Use Meaningful Use Diagnoses (Choose all that apply): None applicable Ischemic Stroke Statin Dosing Therapy Reference: STATIN DOSE THERAPY REFERENCE: * Patients > 75 years receive moderate or high dose statin therapy. * Patients 75 years or YOUNGER should receive HIGH intensity statin dose unless contraindicated. You will be required to document reason for non-treatment if statin daily dose does not meet guidelines. HIGH DOSE STATIN THERAPY DAILY Atorvastatin > than or = to 40 mg Rosuvastatin > than or = to 20 mg Amlodipine + Atorvastatin > than or = to 2.5/40 mg Ezetimibe + Simvastatin 10/80 mg Simvastatin 80mg Discharge Plan Admission Admit Date/T (more content not included)... [facility] 02-20-2024 Note [facility] Medical Records Department [address] [place] [address] History Physical Exam 02/20/24 1040 MR#: [id number] Acct: [id number] Name: BASILIO RANKIN Rep #: [id number] : 1950 73 From: Basilio Murphy MD PCP: RASHMI BUCHANAN Status:ADM [place] [facility] [place] HPI - General General Date of Admission: 02/20/24 HPI Narrative BASILIO RANKIN, is a 73 M who presents to [facility] with complaints of acute onset right upper quadrant radiating abdominal pain. He shares that last evening at approximately 7 PM he began to get uncomfortable but by the time that time approached he was unable to find a comfortable position despite taking a couple of ibuprofen. He shares that he had some cold sweats at the time but did not record a fever and denies any associated nausea. He notified his and the called EMS. Patient's ER workup was notable for CBC demonstrating mild leukocytosis of 12,000. Further CMP showed elevations of the patient's liver function testing and bilirubin. CT of the abdomen pelvis showed no acute intra-abdominal abnormalities per radiology but given patient's laboratories a abdominal ultrasound was obtained. This showed a gallbladder with normal gallbladder wall thickness but mild pericholecystic fluid and lime kiln tender noted a positive Shaver sign. Also notably the common bile duct was within normal limits at 3.7 mm diameter. Thus radiology interpreted this was consistent with acute cholecystitis. Patient states this is actually his second such episode of abdominal discomfort in the last 1 week. He shares that just 1 week ago he had a similar episode of pain that was relieved by 2 ibuprofen. He notes that both episodes followed eating by approximately 2 hours. Patient is reasonably healthy with diagnoses of sporadic ischemic colitis (which she states manifests after periods of dehydration and numerous loose stools approximately 1 time per year). He notes that his present episode was distinct from these prior experiences. He has diagnosed with psoriatic arthritis and uses Enbrel to control his symptoms. He states his last use of Enbrel was 02/17/2024. Mr. Rankin has a history of a open appendectomy at age 23 and a inguinal hernia repair done 11 or 12 years ago at [facility] in [place]. COUNT INCLUDES THE [facility] Medical History (Updated 02/20/24 @ 11:[address] Basilio Murphy MD) Ischemic colitis Psoriatic arthritis Home Medications etanercept 50 mg/mL (1 mL) subcutaneous syringe (Enbrel) 50 mg subcut QWEEK 02/20/24 [History Last Taken Unknown] pantoprazole 20 mg tablet,delayed release (Protonix) 20 mg PO DAILY 02/20/24 [History Last Taken Unknown] Allergy/AdvReac Type Severity Reaction Status Date / Time clarithromycin [From Biaxin] Allergy Hives Verified 02/20/24 01:12 erythromycin base Allergy Rash Verified 02/20/24 01:12 Penicillins Allergy Rash Verified 02/20/24 01:12 Sulfa (Sulfonamide Allergy Hives Verified 02/20/24 01:12 Antibiotics) Surgical History S/P appy S/P hernia repair Social History Smoking Status: Never smoker Vital Signs Vital Signs Vital Signs: 02/20/24 01:06 02/20/24 02:45 02/20/24 03:07 Temperature 96.9 F L Temperature Source Oral Pulse Rate 59 L 65 Respiratory Rate 16 16 Blood Pressure 131/73 H 112/80 Blood Pressure Mean 92 90 Pulse Ox 100 100 Oxygen Delivery Method Room Air Room Air Room Air 02/20/24 05:00 02/20/24 07:00 02/20/24 01:34 Temperature Temperature Source Pulse Rate 70 49 L 52 L Respiratory Rate 17 19 H 15 Blood Pressure 112/75 103/70 Blood Pressure Mean 87 81 Pulse Ox 98 98 99 Oxygen Delivery Method Room Air Room Air 02/20/24 01:45 02/20/24 02:00 02/20/24 02:15 Temperature Temperature Source Pulse Rate 56 L 55 L 56 L Respiratory Rate 27 H 14 14 Blood Pressure 114/88 H 99/75 98/75 Blood Pressure Mean 98 84 84 Pulse Ox 98 96 96 Oxygen Delivery Method 02/20/24 02:30 02/20/24 02:45 02/20/24 03:04 Temperature Temperature Source Pulse Rate 55 L Respiratory Rate 13 0 L Blood Pressure 105/73 101/77 Blood Pressure Mean 85 86 Pulse Ox 97 98 Oxygen Delivery Method 02/20/24 03:08 02/20/24 03:08 02/20/24 03:15 Temperature Temperature Source Pulse Rate 52 L 52 L 53 L Respiratory Rate 14 14 17 Blood Pressure 112/80 112/80 116/80 Blood Pressure Mean 91 91 93 Pulse Ox 100 100 100 Oxygen Delivery Method 02/20/24 03:15 02/20/24 03:30 02/20/24 03:45 Temperature Temperature Source Pulse Rate 53 L 49 L 44 L Respiratory Rate 17 13 22 H Blood Pressure 116/80 115/77 107/79 (more content not included)... [facility] 02-20-2024 Discharge summary Note Date/Time February 20, 2024 1:44am [facility] Medical Records Department [address] [facility] [place] [address] Emergency Department Summary 02/20/24 MR#: [id number] Acct: [id number] Name: BASILIO RANKIN Rep #:[id number] : 1950 73 From: Jorgito Bennett PCP: RASHMI BUCHANAN Status:REG ER Location: ED HPI HPI - GI History of Present Illness Chief Complaint: Abd Pain Informant: patient Abdominal Pain/Flank Pain Onset: Today and Hours (6) Context: Gradual Onset Timing: Continuous Quality: - (Pressure) Location: Epigastric, RUQ and LUQ Worsened by: Nothing Relieved by: Nothing Nausea/Vomiting/Emesis GI Symptom: Negative for Nausea or Vomiting Diarrhea/Melena/Hematochezia GI Symptom: Negative for Diarrhea, Melena or Hematochezia Associated Symptoms Associated Symptoms: Negative for Dysuria, Frequency or Hematuria Narrative Narrative: Patient presents with epigastric abdominal pain that began tonight approximately6 hours prior to arrival. Patient states that his pain started in his epigastric area and radiated around to both upper quadrants. Patient states thepain radiated to his back. Patient states he had a similar episode 1 week ago and took ibuprofen for it and it resolved at that time. Patient states he took some ibuprofen tonight with no improvement. Patient describes his pain as a pressure. Patient states nothing makes his pain worse and nothing makes it better. Patient denies any chest pain or shortness of breath. Patient denies any nausea or vomiting. Patient denies any diarrhea, melena, or hematochezia. Patient denies any urinary complaints. [facility] Medical History (Updated 02/20/24 @ 06:[address] Jorgito Schaffer DO) Ischemic colitis Psoriatic arthritis Home Medications etanercept 50 mg/mL (1 mL) subcutaneous syringe (Enbrel) 50 mg subcut QWEEK 02/20/24 [History Last Taken Unknown] pantoprazole 20 mg tablet,delayed release (Protonix) 20 mg PO DAILY 02/20/24 [History Last Taken Unknown] Allergy/AdvReac Type Severity Reaction Status Date / Time clarithromycin [From Biaxin] Allergy Hives Verified 02/20/24 01:12 erythromycin base Allergy Rash Verified 02/20/24 01:12 Penicillins Allergy Rash Verified 02/20/24 01:12 Sulfa (Sulfonamide Allergy Hives Verified 02/20/24 01:12 Antibiotics) Surgical History S/P appy S/P hernia repair Social History Smoking Status: Never smoker ROS ROS ED Constitutional Constitutional ED: Denies chills or fever(s) Eyes Eyes: Denies blurry vision or change in vision ENT ENT ED: Denies rhinorrhea or sore throat Cardiovascular Cardiovascular: Denies chest pain or palpitations Respiratory/Chest Respiratory/Chest: Denies cough or dyspnea Gastrointestinal Gastrointestinal: Reports abdominal pain; Denies nausea or vomiting Genitourinary Genitourinary ED: Denies dysuria or hematuria Musculoskeletal Musculoskeletal: Reports back pain; Denies neck pain Integumentary Denies abscess or rash Neurologic Neurologic: Denies headache(s) or weakness Allergic/Immunologic Allergic/Immunologic ED: Denies mouth swelling or urticaria EXAM Physical Exam Const Vital Signs: 02/20/24 01:06 02/20/24 02:45 02/20/24 03:07 Temperature 96.9 F L Temperature Source Oral Pulse Rate 59 L 65 Respiratory Rate 16 16 Blood Pressure 131/73 H 112/80 Blood Pressure Mean 92 90 Pulse Ox 100 100 Oxygen Delivery Method Room Air Room Air Room Air 02/20/24 05:00 Temperature Temperature Source Pulse Rate 70 Respiratory Rate 17 Blood Pressure 112/75 Blood Pressure Mean 87 Pulse Ox 98 Oxygen Delivery Method Room Air Positive well nourished and well developed General Appearance ED: well developed and NAD HEENT Reports moist mucous membranes Neck supple and no JVD Resp normal respiratory effort and clear to auscultation bilaterally Cardio regular rhythm Rate: bradycardia GI non-distended Palpation: soft and tender epigastric, LUQ and RUQ; Negative for guarding or rebound tenderness present Neuro CN's II-XII intact bilaterally, moves all extremities and no sensory deficits noted Sensorium / Orientation: alert Motor Exam: strength 5/5 throughout Psych mental status grossly normal MDM MDM MDM Narrative Medical decision making narrative: Differential diagnosis includes gastritis, gastroesophageal reflux disease, pancreatitis, peptic ulcer disease, duodenal ulcer, cholecystitis, cholelithiasis, cardiac dysrhythmia, cardiac ischemia, pneumonia, and electrolyte abnormality. EKG will be obtained to assess for cardiac dysrhythmiaand cardiac ischemia. Chest x-ray will be obtained to assess for pneumonia and pneumothorax. CBC will be obtained to assess for leukocytosis and anemia. Basic metabolic profile will be obtained to assess for electrolyte abnormality and renal function. High-sensitivity troponin will be obtained to assess for cardiac ischemia. Lipase will be obtained to assess for pancreatitis. Hepatic profile will be obtained to assess for hepatic function. PT was INR and PTT will be obtained to assess for coagulopathy. Urinalysis will be obtained to assess for urinary tract infection and hematuria. 2-hour repeat high-sensitivity troponin will be obtained to assess for ongoing cardiac ischemia. Lab Data Attestation: I reviewed the patient's lab results. Lab results narrative: CBC was reviewed. There is a mild leukocytosis of 12.3. The remainder is within normal limits. Basic metabolic profile was reviewed and was essentially within normal limits. Glucose was mildly elevated at 131. PT was INR and PTT were reviewed and were within normal limits. Initial high-sensitivity troponin was reviewed and was normal at 6. Lipase was reviewed and was normal at 39. Hepatic profile was reviewed. Total bilirubin was elevated at 2.5, direct bilirubin was elevated at 1.26, AST was elevated at 297, and ALT was elevated at201. Alkaline phosphatase was normal at 68. Urinalysis was reviewed. There isno evidence of urinary tract infection or hematuria. Labs: Laboratory Results - last 24 hr 02/20/24 02/20/24 02/20/24 00:43 02:55 04:14 WBC 12.3 H RBC 4.93 Hgb 14.7 Hct 45.1 MCV 91.5 MCH 29.8 MCHC 32.6 RDW Std Deviation 46.1 H RDW Coeff of Erika 13.6 Plt Count 249 MPV 10.5 Immature Gran % (Auto) 0.300 Neut % (Auto) 43.4 L Lymph % (Auto) 45.5 H [place] % (Auto) 8.0 Eos % (Auto) 2.2 Baso % (Auto) 0.6 Absolute Neuts (auto) 5.3 Absolute Lymphs (auto) 5.58 H Nucleated RBC % 0 Differential Comment SCANNED Reactive Lymphocytes 1+ PT 13.8 INR 1.1 APTT 22.8 L Sodium 139 Potassium 3.7 Chloride 105 Carbon Dioxide 27.0 Anion Gap 7 BUN 25 H Creatinine 1.14 Estim Creat Clear Calc 68.24 Est GFR (MDRD) Af Amer 81 Est GFR (MDRD) Non-Af 67 BUN/Creatinine Ratio 21.9 H Glucose 131 H Calcium 9.0 Total Bilirubin 2.50 H Direct Bilirubin 1.26 H AST 297 H ALT 201 H Alkaline Phosphatase 68 Troponin I High Sens 6 5 Total Protein 6.9 Albumin 3.6 Globulin 3.3 Lipase 39 Urine Color Yellow Urine Clarity Clear Urine pH 6.0 Ur Specific [place] 1.025 Urine Protein 30 H Urine Glucose (UA) Normal Urine Ketones 15 H Urine Occult Blood 10 H Urine Nitrite Negative Urine Bilirubin 1 H Urine Urobilinogen 4 H Ur Leukocyte Esterase 25 H Urine RBC 0 SEEN Urine WBC 0 SEEN Ur Squamous Epith Cells 0 SEEN Urine Bacteria 1+ Urine Mucus 3+ Radiography Chest X-Ray - ED: 1 View, Read by ED Physician and Read by Radiologist Diagnostic Testing: Clinical Impression(s) from Imaging Studies Chest X-Ray 02/20/24 02:05 IMPRESSION: No radiographic evidence of acute cardiopulmonary disease. Electronically Signed: Dante Deshpande MD at 2:43 EDT Reading Location ID and State: [facility] / [place] Tel , Service support , Abdomen/Pelvis CT 02/20/24 04:20 IMPRESSION: 1. No acute intra-abdominal abnormalities identified. 2. Small gallstones. Electronically Signed: Dante Deshpande MD at 5:22 EDT , Portable 1 view chest x-ray was obtained. On my independent interpretation, lung holder are clear. There is normal cardiac silhouette. Bony thorax is normal. There is no acute process noted. Radiologist also interpreted the x-ray and agrees. CT scan of the abdomen pelvis was obtained. There is no acute intra-abdominal process noted. There are small gallstones noted. This was interpreted by the radiologist was also independently reviewed by myself. EKG Initial EKG: Attestation: I personally reviewed and interpreted this EKG as follows: Interpretation: No Acute Injury Pattern and Sinus Bradycardia (52) Comments: EKG was obtained. On my independent interpretation, it showed sinus bradycardia with a first-degree AV block with a rate of 52. RI interval was prolonged at 230 ms. QRS interval was normal at 92 ms. QTc interval is normal at 416 ms. Smoot was normal. There are no acute ST or T wave changes. Prior EKG tracings: not available for review Prior: No Prior Treatment and Re-Evaluation :: Patient was given morphine here. Patient was also given a dose of Protonix. Patient was feeling better on reevaluation. Because of the elevated liver function tests and normal CT findings, right upper quadrant ultrasound will be obtained later this morning. Patient understands and is agreeable with the plan. Care of the patient will be turned over the oncoming physician pending ultrasound. Discharge Plan Triage Chief Complaint: Abd Pain ED Provider: Jorgito Schaffer Dx/Rx/DC Orders Clinical Impression: Abdominal pain, epigastric, Cholelithiasis Prescriptions: No Action pantoprazole [Protonix] 20 mg tablet,delayed release (DR/EC) 20 mg PO DAILY Enbrel 50 mg/mL (1 mL) syringe 50 mg subcut QWEEK Primary Care Provider: RASHMI BUCHANAN Referrals: RASHMI BUCHANAN [Other] What to do if you have Problems For any increased pain, shortness of breath, bleeding, nausea or vomiting, chest pain, or any unexpected problems, contact your Primary Care Provider. Call [facility] ([phone]) or report to the closest Emergency Room. Call 911 if necessary. 02/20/24 0737 <Electronically signed by Jorgito Schaffer DO> Cosigner Signature (if applicable): CC: RASHMI BUCHANAN ~ Signed [facility] Work Phone: [phone]) 453-598804-24-2024 Telephone encounter Note* Telephone Encounter - Geno Mar LPN - 02/02/2024 8:24 AM EDT Patient phones requesting refills as follows: RUDDY: 08/26/2023 FOV: 08/28/2024 Requested Prescriptions Pending Prescriptions Disp Refills betamethasone dipropionate 0.05 % ointment 45 g 3 Sig: Apply to affected area two times a day. Please review and advise. Geno Mar LPN [facility]04-24-2024 Miscellaneous Notes* Telephone Encounter - Geno Mar LPN - 02/02/2024 8:24 AM EDT Patient phones requesting refills as follows: RUDDY: 08/26/2023 FOV: 08/28/2024 Requested Prescriptions Pending Prescriptions Disp Refills betamethasone dipropionate 0.05 % ointment 45 g 3 Sig: Apply to affected area two times a day. Please review and advise. Geno Mar LPN * Telephone Encounter - Patricia Liriano - 02/02/2024 8:19 AM EDT Patient has been identified by name and date of : Yes Requested Prescriptions Pending Prescriptions Disp Refills betamethasone dipropionate 0.05 % ointment 45 g 3 Sig: Apply to affected area two times a day. RX INSTRUCTIONS: Patient aware RX will be sent to pharmacy. No need to notify patient. Patricia Liriano documented in this encounterC[facility]04-24-2024 Telephone encounter Note * Telephone Encounter - Patricia Liriano - 02/02/2024 8:19 AM EDT Patient has been identified by name and date of : Yes Requested Prescriptions Pending Prescriptions Disp Refills betamethasone dipropionate 0.05 % ointment 45 g 3 Sig: Apply to affected area two times a day. RX INSTRUCTIONS: Patient aware RX will be sent to pharmacy. No need to notify patient. Patricia Liriano [facility]03-01-2024 Miscellaneous Notes* Telephone Encounter - Lashawn Rodríguez MA - 12/10/2023 11:30 AM EST Patient phones requesting refills as follows: RUDDY: 08/26/2023 FOV: 08/24/2024 Last filled: 11/25/2023 Medication was sent in to be filled 12/08/2023 and was refused this a duplicate order. 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 Requested Prescriptions Pending Prescriptions Disp Refills ENBREL 50 mg/mL (1 mL) injection [Pharmacy Med Name: ETANERCEPT (ENBREL) 50 MG/ML (1 ML)] 3 Sig: INJECT 50 MG (1 ML) UNDER THE SKIN ONCE A WEEK Please review and advise. Lashawn Rodríguez MA documented in this encounterCrystal [facility]02-15-2024 Miscellaneous Notes* Telephone Encounter - Melissa Cook - 11/25/2023 3:34 PM EST [facility] [place] called to check on status regarding below. Please advise. * Telephone Encounter - Lashawn Rodríguez MA - 11/23/2023 10:41 AM EST Patient's request for medication is as follows: RUDDY: 08/26/2023 FOV: 08/28/2024 Requested Prescriptions Pending Prescriptions Disp Refills Etanercept (ENBREL) 50 mg/mL (1 mL) injection 12 Each 3 Sig: INJECT 50 MG (1 ML) UNDER THE SKIN ONCE A WEEK Please approve the above prescription(s) to electronically send to pharmacy. Lashawn Rodríguez MA documented in this encounterCrystal [facility]02-07-2024 Miscellaneous Notes* Telephone Encounter - Nelli Serrano RN - 11/17/2023 12:55 PM EST BASILIO RANKIN Rapp: [email or web address] - SUSANNA Outcome Approvedtoday Your request has been approved Drug Calcitriol 3MCG/GM ointment Form [employer] Medicare Electronic PA Form (2016 [facility]) * Telephone Encounter - Nelli Serrano RN - 11/15/2023 2:52 PM EST BASILIO RANKIN (Rapp: [id number]) PA Need Help? Call us at Outcome Approved today Your request has been approved Authorization Expiration Date: 11/14/2026 Drug Enbrel SureClick 50MG/ML auto-injectors ePA cloud logo Form [employer] Medicare Electronic PA Form (2016 [facility] documented in this encounterCrystal Clinic [facility]12-11-2023 Evaluation note* Encounter Date Diagnosis Assessment Notes Treatment Notes Treatment Clinical Notes Sep, Medicare annual wellness visit, subsequent (ICD-10 - Z00.00) Personalized health advice was given to the beneficiary with a referral, if appropriate, to health education of preventative counseling services or programs aimed at reducing identified risk factors and improving self-management or community-based lifestyle interventions to reduce health risks and promote self-management and wellness, including weight loss, physical activity, smoking cessation, fall prevention, and nutrition. A written plan for screenings discussed, including colonoscopy, mammography, flu shots, routine lab studies, eye exams, glaucoma screening, skin checks, risk factors for medical problems discussed, including BP control, obesity, and need for consistent exercise. Advanced care planning reviewed. Counseling was provided here today - specifically in regard to any positively answered questions as noted above. Sep, GERD (gastroesophageal reflux disease) (ICD-10 - K21.9) Sep, Vitamin D deficiency (ICD-10 - E55.9) Sep, Hyperlipidemia (ICD-10 - E78.5) [facility] Other 11-16-2023 Instructions* Patient Instructions* Mei Kelley MD - 08/26/2023 8:33 AM EST SKIN CARE AFTER CRYOSURGERY The skin's response to cryosurgery (freezing) can be mild to more severe, depending on the depth ofthe freeze and the location of the area treated. You may have only mild redness and swelling with alittle discomfort of significant discoloration and blistering with considerable discomfort. A burning sensation in the skin may last from several minutes to several hours after the procedure. Follow these instructions when caring for an area treated by cryosurgery: MINOR RESPONSE: 1. The area may sting or burn for a short time after treatment. 2. The treated area will be red in color at first then turn brown and flaky as it heals and the upper layer of skin sloughs off. 3. Gently cleanse the area with soap and water then use alcohol swab to remove extra bacteria. Pat dry and apply a thin film of Vaseline or Aquaphor ointment. Do this at least once a day to prevent infection. MAJOR RESPONSE: 1. Follow instructions as stated for minor response. 2. The area may sting and burn for several hours after treatment. 3. To relieve throbbing and pain, elevate the treatment area. 4. Acetaminophen (Tylenol) may be taken every 3 to 4 hours for discomfort. 5. A blister will form in the area of freezing. It may be filled with clear fluid or blood. This response is not unusual. 6. Do not break the blister unless it becomes uncomfortable. You may prick the blister with a sterile needle or pin to remove the fluid. Leave the skin intact. 7. Cleanse twice a day with soap and water and isopropyl alcohol and apply Vaseline to prevent infection and a thick scab from forming. 8. All treated areas usually heal within 3 to 4 weeks. If you have problems or questions, please call [facility] [phone] documented in this encounterCrystal Clinic [facility]11-16-2023 History of Present illness Narrative* Mei Kelley MD - 08/26/2023 8:17 AM EST Patient returns for follow up skin check due to history of psoriasis. Patient states that in the summer it is great. Flares during winter. Last visit was 1 year ago. NEW COMPLAINTS: Currently flaring on knees, elbows and legs Currently treating Psoriasis with: -Enbrel 50 mg SC once weekly. - Calcitriol Ointment 3 mcg/g Stopped Betamethasone dipropionate 0.05% ointment because it was ineffective. MEDICAL HX: No significant changes PHYSICAL EXAM: The patient is pleasant, oriented x 3, in no acute distress. Exam performed of the scalp, face, neck, chest, back, abdomen, arms, legs, and buttock. Significant findings noted below, otherwise no suspicious lesions noted at this time. Chest (Upper Torso, Anterior), Left Forearm - Anterior, Left Forearm - Posterior, Left Hand - Posterior, Left Knee - Anterior, Left Lower Leg - Anterior, Left Preauricular Area, Left Taoist, Right Forearm - Anterior, Right Forearm - Posterior, Right Hand - Posterior, Right Knee - Anterior, Right Lower Leg - Anterior, Right Preauricular Area, Right Taoist Few erythematous plaques with scale. Arms and Legs, Photodistributed, Trunk Findings as follows: Left Breast Focal areas of gritty adherent scale. IMPRESSION/PLAN: Psoriasis Left Hand - Posterior; Right Hand - Posterior; Left Knee - Anterior; Right Knee - Anterior; Left Forearm - Anterior; Right Forearm - Anterior; Left Forearm - Posterior; Right Forearm - Posterior; Left Lower Leg - Anterior; Right Lower Leg - Anterior; Chest (Upper Torso, Anterior); Left Taoist; Right Taoist; Left Preauricular Area; Right Preauricular Area Controlled; BSA 30% currently, better during summer time. Continue treatments: Enbrel, topical steroid, calcipotriene. See orders for details. Related Medications betamethasone dipropionate 0.05 % ointment Apply to affected area twice daily. Calcitriol 3 mcg/gram oint APPLY TO AFFECTED AREA(S) SPARINGLY EVERY NIGHT AT BEDTIME Skin exam, screening for cancer (3) Trunk; Photodistributed; Arms and Legs The nature of sun-induced photo-aging and skin cancers is discussed. Sun avoidance, protective clothing, and the use of 30-SPF or higher sunscreens is advised. Must be used every 2-3 hours when in the sun continuously. Patient is instructed to perform regular self exams. Observe for changing, symptomatic, or new skin lesions and seek care with the patient's primary care provider or with dermatology if any lesions of concern are noted AK (actinic keratosis) Left Breast The gold standard is to treat pre cancerous lesions. This is in addition to evaluation and management of other areas on the skin. Discussion regarding actinic keratosis treatment: Photodynamic therapy vs chemical (Efudex) vs cryotherapy. Potential side effects. Patient prefers and agrees to cryo treatment. CRYOTHERAPY SKIN LESION - Left Breast Complexity: simple Destruction method: cryotherapy Destruction method comment: X 1 Informed consent: discussed and consent obtained Informed consent comment: Risk of hypopigmentation and recurrence of lesion(s) discussed. Timeout: patient name, date of , surgical site, and procedure verified Lesion destroyed using liquid nitrogen: Yes Region frozen until ice ball extended beyond lesion: Yes Outcome: patient tolerated procedure well with no complications Post-procedure details: wound care instructions given FOLLOW UP: 12 month(s). The documentation for this note was completed by Geno Mar LPN/ Lashawn Rodríguez MA acting as scribe for Mei Kelley MD. August 26, 2023 8:20 AM. I agree with the Chief Complaint, ROS, and Past Histories independently gathered by the clinical coding support specialist and the remaining scribed note accurately describes my personal service to the patient. Mei Kelley MD Medical Decision Making: Problems: Moderate: 1+ chronic illnesses with change Risk: Moderate: Drug management Medical Decision Making Level: 4 - Moderate [facility] Miscellaneous Notes* Telephone Encounter - Geno Mar LPN - 06/03/2023 10:26 AM EDT Patient phones requesting refills as follows: RUDDY: 08/10/2022 FOV: 08/26/2023 Requested Prescriptions Pending Prescriptions Disp Refills Etanercept (ENBREL) 50 mg/mL (1 mL) injection 12 Each 3 Sig: INJECT 50 MG (1 ML) UNDER THE SKIN ONCE A WEEK Please review and advise. Geno Mar LPN * Telephone Encounter - MonchoavaantCarlene - 06/03/2023 10:05 AM EDT Basilio is calling Mei Kelley MD today to request prescription refills. Date 06/03/2023 Time 1006 Instructions:Patient aware RX will be sent to pharmacy. No need to notify patient. Requested Prescriptions Pending Prescriptions Disp Refills Etanercept (ENBREL) 50 mg/mL (1 mL) injection 12 Each 3 Sig: INJECT 50 MG (1 ML) UNDER THE SKIN ONCE A WEEK Last OV: 08/10/2022 Next OV: 08/26/2023 Patient has been identified by name and birthdate. Person calling: self Return call to: verified phone below Patient's phone: [phone] (home) [phone] (work) [phone] (cell) Was an appointment scheduled: No Closing statement: Thank you for contacting the [facility]. Your request will be forwarded to the provider for review. BRUNA Bernal Patient Operations Support Team (POST) Please note: Please do not re-route phone encounters back to this agent, please send to appropriateoffice pool. Agent works in operations center and cannot complete patient specific tasks. [facility] Evaluation note* Encounter Date Diagnosis Assessment Notes Treatment Notes Treatment Clinical Notes Mar, Cough, unspecified type (ICD-10 - R05.9) Mar, Acute sinusitis (ICD-10 - J01.90) Advised to take entire course of antibiotics as prescribed. -Rest, push fluids, tylenol or ibuprofen PRN for pain/fever, nasal saline spray as needed. [facility] Other 05-15-2023 History general Narrative - Reported* Type Description Date Medical History GERD Medical History psoriatic arthritis Medical History 02/22 ischemic colitis Medical History CAN ONLY TAKE DOXYCYCLINE FOR ANTIBIOTIC Medical History Left umbilical hernia Surgical History colonoscopy 04/24 Surgical History colonoscopy 12/2008 Surgical History appendectomy Surgical History RIGHT KNEE SURGICAL REPAIR OF M ENISCUS 2009 Surgical History LCTR Surgical History Right carpal tunnel release 2020 Hospitalization History hernia repair Hospitalization History BACTERIAL INFECTION 2001 [facility] Other 10-31-2022 History of Present illness Narrative* Mei Kelley MD - 08/10/2022 1:48 PM EDT Patient returns for follow up skin check due to history of Psoriasis Last visit was 1 year ago NEW COMPLAINTS: No MEDICAL HX: No significant changes Need the following renewed: Enbrel 50mg/mL injection once weekly Betamethasone 0.05% ointment Calcitriol 3 mcg/gram ointment PHYSICAL EXAM: The patient is pleasant, oriented x 3, in no acute distress. Exam performed of the scalp, face, neck, chest, back, abdomen, arms, legs, and buttock. Significant findings noted below, otherwise no suspicious lesions noted at this time. Right Hip (side) - Posterior Erythematous plaque Left Elbow - Posterior, Left Knee - Anterior, Left Lower Back, Left Lower Leg - Anterior, Right Elbow - Posterior, Right Hip (side) - Posterior, Right Knee - Anterior Few erythematous plaques with scale. IMPRESSION/PLAN: Pruritus Right Hip (side) - Posterior Intralesional kenalog 5 mg/ml x 1 lesion x 0.1 ml. Related Medications triamcinolone acetonide 5 mg injection (KeNALog 10) Psoriasis Left Elbow - Posterior; Right Elbow - Posterior; Left Knee - Anterior; Right Knee - Anterior; RightHip (side) - Posterior; Left Lower Leg - Anterior; Left Lower Back Controlled with BSA 5%. Continue -Enbrel 50 mg SC once weekly. Last TB negative on 08/03/22 -topical steroid/calcipotriene Related Medications betamethasone dipropionate 0.05 % ointment Apply to affected area twice daily. Calcitriol 3 mcg/gram oint APPLY TO AFFECTED AREA(S) SPARINGLY EVERY NIGHT AT BEDTIME Counseled patient on sun avoidance, use of sunscreen, and monthly self skin examination. Reviewed signs of skin cancer, including ABCDE's of malignant melanoma. FOLLOW UP: 12 month(s). The documentation for this note was completed by Mike Kenney MA/ Geno Mar LPN acting asscribe for Mei Kelley MD. August 10, 2022 1:52 PM. I agree with the Chief Complaint, ROS, and Past Histories independently gathered by the clinical coding support specialist and the remaining scribed note accurately describes my personal service to the patient. Mei Kelley MD Medical Decision Making: Problems: Low: Stable chronic illness Data: Unique source(s) for external note(s) reviewed: 1 Unique test result(s) reviewed: 1 Risk: Moderate: Drug management Medical Decision Making Level: 3 - Low documented [facility] Evaluation note* Encounter Date Diagnosis Assessment Notes Treatment Notes Treatment Clinical Notes May, GERD (gastroesophageal reflux disease) (ICD-10 - K21.9) [facility] Other 05-15-2022 History general Narrative - Reported* Type Description Date Medical History GERD Medical History psoriatic arthritis Medical History 02/22 ischemic colitis Medical History CAN ONLY TAKE DOXYCYCLINE FOR ANTIBIOTIC Medical History Left umbilical hernia Surgical History colonoscopy 04/24 Surgical History colonoscopy 12/2008 Surgical History appendectomy Surgical History RIGHT KNEE SURGICAL REPAIR OF M ENISCUS 2009 Surgical History LCTR Surgical History Right carpal tunnel release 2020 Hospitalization History hernia repair Hospitalization History BACTERIAL INFECTION 2001 [facility] Other 03-23-2022 Evaluation note* Encounter Date Diagnosis Assessment Notes Treatment Notes Treatment Clinical Notes Dec, Cough (ICD-10 - R05.9) Dec, Viral URI (ICD-10 - J06.9) Reassurance. Symptoms mild, short duration, most likely viral. Abx not indicated at this time. Discussed expectations of typical viral illness. Rest, push fluids, tylenol or ibuprofen PRN for pain/fever. Gargle with warm salt water. Nasal saline spray PRN. If symptoms not improving over next 10 days patient to call back and would send course of abx. [facility] Other 01-20-2022 Evaluation note* Encounter Date Diagnosis Assessment Notes Treatment Notes Treatment Clinical Notes Oct, Bronchitis (ICD-10 - J40) [facility] Other 12-07-2021 Evaluation note* Encounter Date Diagnosis Assessment Notes Treatment Notes Treatment Clinical Notes Sep, Medicare annual wellness visit, subsequent (ICD-10 - Z00.00) Personalized health advice was given to the beneficiary with a referral, if appropriate, to health education of preventative counseling services or programs aimed at reducing identified risk factors and improving self-management or community-based lifestyle interventions to reduce health risks and promote self-management and wellness, including weight loss, physical activity, smoking cessation, fall prevention, and nutrition. A written plan for screenings discussed, including colonoscopy, mammography, flu shots, routine lab studies, eye exams, glaucoma screening, skin checks, risk factors for medical problems discussed, including BP control, obesity, and need for consistent exercise. Advanced care planning reviewed. Counseling was provided here today - specifically in regard to any positively answered questions as noted above. Sep, GERD (gastroesophageal reflux disease) (ICD-10 - K21.9) Sep, Hyperlipidemia (ICD-10 - E78.5) Sep, Vitamin D deficiency (ICD-10 - E55.9) [facility] Other 12-06-2021 Evaluation note* Encounter Date Diagnosis Assessment Notes Treatment Notes Treatment Clinical Notes Sep, Other specified postprocedural states (ICD-10 - Z98.890) Patient is progressing well from surgery. We discussed the importance of continuing to work on range of motion and strength exercise. Suture removal performed. Patient tolerated well. To call with questions or concerns. Sep, Right carpal tunnel syndrome (ICD-10 - G56.01) Basilio is here for his first follow-up s/p right carpal tunnel release. He is doing great. His symptoms are resolved at this time. Feels like strength is already improving. No complaints. Incision is benign and sutures have been removed. Activities as tolerated, follow-up as needed Sep, Encounter for remova l of sutures (ICD-10 - Z48.02) Sep, Other See orders for this visit as documented in the electronic medical record. [facility] Other 11-19-2021 Evaluation note* Encounter Date Diagnosis Assessment Notes Treatment Notes Treatment Clinical Notes Aug, Right hand pain (ICD-10 - M79.641) Aug, Right carpal tunnel syndrome (ICD-10 - G56.01) Basilio presents with likely right carpal tunnel syndrome. At this juncture we have discussed the findings and diagnosis as well as personally reviewed appropriate imaging and performed interpretation of related testing and examination with the patient in office today. Prior medical notes from Dr. Magaña and history have been reviewed. We have reviewed the EMG and results together today. At this time I would recommend carpal tunnel release Findings and diagnosis of carpal tunnel syndrome have been discussed at length with the patient. We have discussed how it is the most common compressive neuropathy effects up to 10% of the population. Diagnostic evaluation including physical exam as well as electromyography and nerve conduction studies were discussed. Imaging and diagnostic studies have been reviewed with the patient. Nonoperative treatment including NSAIDs, night splints as well as activity modifications along with steroid injections have been discussed. We have discussed open surgical release of the transverse carpal ligament which is performed during carpal tunnel surgery. We have also discussed the outcomes involved in surgical release including the return of pinch strength in approximately 6 weeks, packaging associate strength recovery at about 12 weeks, and the possibility of ongoing symptoms at 1 year and 20% of severe cases. Patient verbalized understanding of our discussion and would like to move forward with carpal tunnel release Basilio presents with right carpal tunnel syndrome. At this juncture we have discussed the findings and diagnosis as well as reviewed appropriate imaging and performed interpretation of testing. Surgical intervention is recommended. Prior medical notes and history have been reviewed. Surgical versus non-operative management have been discussed in detail and non-operative management was given as an option. The risks of surgical intervention were given. Pre-operative optimization will be done prior to surgical procedure to limit sayda-operative risks. I have discussed the planned procedure, how and who performs the procedure, and the personnel involved. Cardiovascular, pulmonary, and other life threatening episodes can occur during surgery although there is a low risk of these happening. Surgical risks including bleeding, neurovascular injury, wound closure problems and infection were discussed. Sayda-operative risks including infection, bleeding, wound healing problems, and need for further surgery were discussed. It was discussed that there is a possibility of blood transfusion with any surgical procedure and the risks involved in receiving a blood transfusion. Possibility of, and need for, future bracing or DME use, physical or occupational therapy, mental therapy, rehabilitation, pain management and need for secondary procedures was discussed. I have warned against smoking and the use of tobacco products due to the risks associated with them, in particular, poor healing. I have advised against the manager intermediate use of narcotic pain medication. I have advised to follow all post-operative instructions in order to obtain the best outcome. Informed consent has been verbally affirmed and signed as indicated. The patient has been involved in our cooperative treatment plan and agrees to move forward with treatment at this time. EMG results reviewed with patient. We will plan on carpal tunnel release.The patient has stated that they do not want to live in this condition any longer and would like to proceed with surgery. I feel that this is a reasonable option at this point and we may be able to improve function and decrease pain and numbness. We have discussed the process and procedure in detail including not eating or drinking 8 hrs prior to surgery, the need for anesthesia and associated respiratory, cardiac, and patient position complications (such as nerve traction and compression). We discussed that incisional pain and continued neurologic symptoms can persist for months after surgery. The complications of infection, persistent symptoms, sensory and motor nerve injury are well known problems that can require repeat surgeries. Patient is fully aware that this wrist may never be the same. We discussed that our team will do everything we can to help achieve the best outcome. Aug, Pre-op exam (ICD-10 - Z01.818) [facility] Other 09-27-2021 Evaluation note* Encounter Date Diagnosis Assessment Notes Treatment Notes Treatment Clinical Notes Jun, Right hand pain (ICD-10 - M79.641) Jun, Right carpal tunnel syndrome (ICD-10 - G56.01) Basilio presents with likely right carpal tunnel syndrome. At this juncture we have discussed the findings and diagnosis as well as personally reviewed appropriate imaging and performed interpretation of related testing and examination with the patient in office today. Prior medical notes from Dr. Magaña and history have been reviewed. At this time I would recommend EMG. We will plan for follow-up after EMG is complete. Findings and diagnosis of carpal tunnel syndrome have been discussed at length with the patient. We have discussed how it is the most common compressive neuropathy effects up to 10% of the population. Diagnostic evaluation including physical exam as well as electromyography and nerve conduction studies were discussed. Imaging and diagnostic studies have been reviewed with the patient. Nonoperative treatment including NSAIDs, night splints as well as activity modifications along with steroid injections have been discussed. We have discussed open surgical release of the transverse carpal ligament which is performed during carpal tunnel surgery. We have also discussed the outcomes involved in surgical release including the return of pinch strength in approximately 6 weeks, packaging associate strength recovery at about 12 weeks, and the possibility of ongoing symptoms at 1 year and 20% of severe cases. Patient verbalized understanding of our discussion and would like to move forward with EMG at this time. The patient has been involved in our cooperative treatment plan and agrees to move forward with treatment at this time. We will proceed with EMG of bilateral upper extremities Jun, Other Continue mobilization without restrictions; this was encouraged and exercises were reviewed in the office today. See orders for this visit as documented in the electronic medical record. [facility] Other Evaluation note* Diagnosis Psoriasis- Primary Other psoriasis Pruritus Unspecified pruritic disorder [facility] [place] noteNo assessment information [facility] Work Phone: Evaluation noteNo InformationNort TuTanda Other Evaluation note* Diagnosis Other psoriasis- Primary documented in this encounter [facility] note* Diagnosis Psoriasis- Primary Other psoriasis Skin exam, screening for cancer Screening for malignant neoplasm of the skin AK (actinic keratosis) Actinic keratosis [facility] [place] [facility]* Diagnosis Other psoriasis [facility] [place] [facility]* Diagnosis Psoriasis Other psoriasis documented in this encounter [facility] note* Diagnosis Onset Date Resolution Status Abdominal pain, epigastric a cute Abnormal LFTs (liver function tests) acute Cholecystitis, acute with cholelithiasis acute Cholelithiasis acute Conjugated hyperbilirubinemia acute Umbilical hernia without obs truction and without gangrene acute [facility] Work Phone: Evaluation note* Diagnosis Psoriasis Other psoriasis documented in this encounter [facility] note* Diagnosis Skin exam, screening for cancer- Primary Screening for malignant neoplasm of the skin Psoriasis Other psoriasis Diffuse photodamage of skin Other chronic dermatitis due to solar radiation Seborrheic keratosis Other seborrheic keratosis Polyarticular psoriatic arthritis (HCC) Psoriatic arthropathy [facility] [place] [facility]* Diagnosis Epiretinal membrane (ERM) of right eye- Primary Age-related nuclear cataract of both eyes Dry eyes Unspecified tear film insufficiency Blepharitis of upper and lower eyelids of both eyes, unspecified type [facility] N[facility] - Reported* Type Description Date Medical History GERD Medical History psoriatic arthritis Medical History 02/22 ischemic colitis Medical History CAN ONLY TAKE DOXYCYCLINE FOR ANTIBIOTIC Medical History Left umbilical hernia Surgical History colonoscopy 04/24 Surgical History colonoscopy 12/2008 Surgical History appendectomy Surgical History RIGHT KNEE SURGICAL REPAIR OF M ENISCUS 2009 Surgical History LCTR Hospitalization History hernia repair Hospitalization History BACTERIAL INFECTION 2001 [facility] Other History general Narrative - Reported* Type Description Date Medical History GERD Medical History psoriatic arthritis Medical History 02/22 ischemic colitis Medical History CAN ONLY TAKE DOXYCYCLINE FOR ANTIBIOTIC Medical History Left umbilical hernia Surgical History colonoscopy 04/24 Surgical History colonoscopy 12/2008 Surgical History appendectomy Surgical History RIGHT KNEE SURGICAL REPAIR OF M ENISCUS 2009 Surgical History LCTR Surgical History Right carpal tunnel release 2020 Hospitalization History hernia repair Hospitalization History BACTERIAL INFECTION 2001 [facility] Other Hospital Discharge instructions Additional Instructions DISCHARGE INSTRUCTIONS FOR COLONOSCOPY WHAT TO EXPECT: - You may feel full, gassy or cramping after your procedure. In some cases, this may be from a few hours to a day. Walking may help relieve the discomfort. - If you have polyp(s) removed you may note some minor bloody discharge after your first bowel movements. - You should begin to recover from anesthesia within 1 hour of the procedure, however may feel groggy for the next 24 hours. DO's AND DON'Ts: - Call your doctor right away if you have a hard abdomen, severe pain, are passing lots of bright red blood or clots. - Call your doctor if you develop any rashes, hives or difficulty breathing. - Let your doctor know if you have not had a bowel movement by 3 days after your procedure. - If you take 81 mg aspirin for your heart it is safe to resume this medication. - If you take other blood thinner medications your doctor will instruct you when these can safely be resumed. - Do NOT drive for 24 hours. - Do NOT operate machinery such as power tools, lawn mowers, snow blowers, sewing machines, etc. for 24 hours. - Avoid alcoholic beverages and drugs for allergies, nerves, or sleep. - Do NOT stay alone. Do NOT leave your child unattended. - Do NOT make important personal or business decisions or sign any legal documents. - Eat solid foods and drink liquids in smaller amounts than usual until normal appetite returns. If you should experience an upset stomach, liquids high in sugar content (soda, Phil-Aid, non-acid juices) are recommended. - You can resume normal activities tomorrow. FOLLOW UP & RECOMMENDATIONS: - You do not need any further colonoscopies for colon cancer screening. - Notify the doctor if you have any problems. - Follow-up with the GI office as needed. - Follow up with PCP. - Office number [phone].[facility] Work Phone: Reason for referral (narrative)No reason for referral information availableWvumedicine [facility] Work Phone: Reason for Referral Reason Refer to JANETT or Dr Marlee sylvester for EMG bilateral upper ext Diagnosis 1 Right carpal tunnel syndrome (G56.01) Referral Organization [facility] Referring Provider First Name Juan J Referring Provider Last Name Shayla Referring Provider Specialty Orthopedic Surgery Referred Organization Unknown Facility Referred Provider Specialty Neurology Referral Priority Routine Specialty Diagnoses / Procedures Referred By Ruth trujillo Referred To Contact Diagnoses Psoriasis Mei Kelley MD [address] [place] [address] [place] [address] Referral ID Status Reason Start Date Expiration Date V isits Requested Visits Authorized [id number] Pending Review 1 1 Referral ID Status Reason Start Date Expiration Date V isits Requested Visits Authorized [id number] Pending Review 08/28/2024 10/27/2024 1 1 Medications Administered Section Inactive Administered Medications - up to 3 most recent administrations Medication Order MAR Action Action Date Dose Rate Site triamcinolone acetonide 5 mg injection (KeNALog 10) 5 mg, INTRALESIONAL, ONCE, 1 dose, On 08/10/22 at 1430, Intralesional kenalog given by Dr. Kelley unless otherwise specified in progress note. Given 08/10/2022 2:30 PM EDT 5 mg Family History Relationship Condition Age at Onset Recorded Date/T jayme father Myocardial infarction Unknown Hypertension Unknown Relationship Condition Age at Onset Recorded Date/T jayme father Myocardial infarction Unknown Hypertension Unknown Unknown Heart disease Unknown brother Unknown son Psoriatic arthritis Unknown Advance Directives Advance Directive Response Recorded Date/ Time Advance Directives No July 25, 2017 11:24am Advance Directive Response Recorded Date/ Time Living Will Yes February 20, 2024 1 :14am Power of [employer] Yes February 20, 2024 1:14am Name of Medical Power of [employer] February 20, 2024 1:14am Advance Directive Response Recorded Date/ Time Advance Directives No July 25, 2017 12:24pm Chief Complaint and Reason for Visit Chief Complaint ACUTE CHOLECYSTITIS Reason for Visit Abdominal pain, epig astric Abnormal LFTs (liver function tests) Cholecystitis, acute with cholelithiasis Cholelithiasis Conjugated hyperbilirubinemia Umbilical hernia without obstruction and without gangrene Chief Complaint Admit Date Screening May 21, 2025 8: 23am Chief Complaint Admit Date cough, congestion August 20, 2025 9:03am Summary Purpose Additional Source Comments REASON FOR VISIT (unrecogniz ed section and content) Reason Comments Skin Check Reason Onset Date Comments Refill Request 06/03/2023 Enbrel Reason Comments Insurance Authorization Reason Comments Opened In Error Reason Comments Med Change Request Reason Onset Date Comments Refill Request Refill Request 12/10/2023 Reason Onset Date Comments Refill Request 02/02/2024 Reason Comments Medication Problem Reason Comments Refill Request Reason Comments Full Body Skin Check Reason Comments Eye Exam Cataract Source Comments (unrecognize d section and content) In the event this informatio n is protected by the Federal Confidentiality of Alcohol and Drug Abuse Patient Records regulations: The Federal rules restrict any use of the information to criminally investigate or prosecute any alcohol or drug abuse patient.[facility] Center[facility] the event this information is protected by the Federal Confidentiality of Alcohol and Drug Abuse Patient Records regulations: The Federal rules restrict any use of the information to criminally investigate or prosecute any alcohol or drug abuse patient.[facility] Center[facility] the event this information is protected by the Federal Confidentiality of Alcohol and Drug Abuse Patient Records regulations: The Federal rules restrict any use of the information to criminally investigate or prosecute any alcohol or drug abuse patient.[facility] Center[facility] the event this information is protected by the Federal Confidentiality of Alcohol and Drug Abuse Patient Records regulations: The Federal rules restrict any use of the information to criminally investigate or prosecute any alcohol or drug abuse patient.[facility] CenterIn the event this information is protected by the Federal Confidentiality of Alcohol and Drug Abuse Patient Records regulations: The Federal rules restrict any use of the information to criminally investigate or prosecute any alcohol or drug abuse patient.[facility] Center[facility] the event this information is protected by the Federal Confidentiality of Alcohol and Drug Abuse Patient Records regulations: The Federal rules restrict any use of the information to criminally investigate or prosecute any alcohol or drug abuse patient.[facility] Center[facility] the event this information is protected by the Federal Confidentiality of Alcohol and Drug Abuse Patient Records regulations: The Federal rules restrict any use of the information to criminally investigate or prosecute any alcohol or drug abuse patient.[facility] Center[facility] the event this information is protected by the Federal Confidentiality of Alcohol and Drug Abuse Patient Records regulations: The Federal rules restrict any use of the information to criminally investigate or prosecute any alcohol or drug abuse patient.[facility] CenterIn the event this information is protected by the Federal Confidentiality of Alcohol and Drug Abuse Patient Records regulations: The Federal rules restrict any use of the information to criminally investigate or prosecute any alcohol or drug abuse patient.[facility] CenterIn the event this information is protected by the Federal Confidentiality of Alcohol and Drug Abuse Patient Records regulations: The Federal rules restrict any use of the information to criminally investigate or prosecute any alcohol or drug abuse patient.[facility] CenterIn the event this information is protected by the Federal Confidentiality of Alcohol and Drug Abuse Patient Records regulations: The Federal rules restrict any use of the information to criminally investigate or prosecute any alcohol or drug abuse patient.[facility] CenterIn the event this information is protected by the Federal Confidentiality of Alcohol and Drug Abuse Patient Records regulations: The Federal rules restrict any use of the information to criminally investigate or prosecute any alcohol or drug abuse patient.[facility] Care Teams (unrecognized sec tion and content) Team Status: Active Member Role Status Dates Rashmi Buchanan DO Primary Care Provider Active Team Status: Active Member Role Status Dates Rashmi Buchanan DO Primary Care Provider Active Start: May 21, 2025 Erickson Colunga MD Attending Provider Active S tart: May 21, 2025 Erickson Colunga MD Other Provider Active Start : May 21, 2025 Pi/Senior Research Associate Relationship Specialty Start Date End Date Tom Belcher DO PCP - General Family Medicine 01/30/14 Team Status: Inactive Member Role Status Dates Rashmi Buchanan DO Primary Care Provider, Attending Provider Active [employer]ior Research Associate Relationship Specialty Start Date End Date Tom Belcher DO PCP - General Family Medicine 01/30/14 Pi/Senior Research Associate Relationship Specialty Start Date End Date Tom Belcher DO PCP - General Family Medicine 01/30/14 Pi/Senior Research Associate Relationship Specialty Start Date End Date Tom Belcher DO PCP - General Family Medicine 01/30/14 Pi/Senior Research Associate Relationship Specialty Start Date End Date Tom Belcher DO PCP - General Family Medicine 01/30/14 Pi/Senior Research Associate Relationship Specialty Start Date End Date Tom Belcher DO PCP - General Family Medicine 01/30/14 Pi/Senior Research Associate Relationship Specialty Start Date End Date Tom Belcher DO PCP - General Family Medicine 01/30/14 Team Status: Active Member Role Status Dates RASHMI BUCHANAN Primary Care Provider Active Team Status: Active Member Role Status Dates Dr. Jorgito Schaffer DO Emergency Provider Active THOMAS CARABALLO Primary Care Provider Active Dr. Basilio Murphy MD Admit Provider, Attending Provi miguelina Active Pi/Senior Research Associate Relationship Specialty Start Date End Date Tom Belcher DO PCP - General Family Medicine 01/30/14 Pi/Senior Research Associate Relationship Specialty Start Date End Date Tom Belcher DO PCP - General Family Medicine 01/30/14 Pi/Senior Research Associate Relationship Specialty Start Date End Date Rashmi Buchanan MD [address] [place] [address] PCP - General Family Medicine 08/27/23 Pi/Senior Research Associate Relationship Specialty Start Date End Date Rashmi Buchanan MD [address] [place] [address] PCP - General Family Medicine 08/27/23 Team Status: Active Member Role/Relationship Status Dates Rashmi Buchanan DO Primary Care Provider Active Team Status: Inactive Member Role/Relationship Status Dates Rashmi Buchanan DO Primary Care Provider Active Start: August 20, 2025 End: August 20, 2025 Whitney Woods APRN Attending Provider Active S tart: August 20, 2025 End: August 20, 2025 Goals (unrecognized section and content) Goals may be documented in a n alternate section (unrecognized sect ion and content) No Status Records FoundNo Status Records FoundNo Status Records FoundNo Status Records Found INFORMATION SOURCE (unrecogn ized section and content) DATE CREATED AUTHOR 03/04/2024 [facility] DATE CREATED AUTHOR AUTHOR'S ORGANIZ ATION 09/01/[address] [facility] DATE CREATED AUTHOR AUTHOR'S ORGANIZ ATION 04/07/2025 [facility] DATE CREATED AUTHOR AUTHOR'S ORGANIZ ATION 05/30/2025 [facility] FOR RECORDS PERTAINING TO PATIENTS WHO ARE OR HAVE BEEN ENROLLED IN A CHEMICAL DEPENDENCY/SUBSTANCEABUSE PROGRAM, SOME INFORMATION MAY BE OMITTED. This clinical summary was aggregated from multiple sources. Caution should be exercised in using it in the provision of clinical care. This summary normalizes information from multiple sources, and as a consequence, information in this document may materially change the coding, format and clinical context of patient data. In addition, data may be omitted in some cases. CLINICAL DECISIONS SHOULD BE BASED ON THE PRIMARY CLINICAL RECORDS. [facility] [employer] provides no warranty or guarantee of the accuracy or completeness of information in this document.
== END 2025-09-06 11:15 | disposition home or self-care (01) ==
LOC: ED 10:57
PROVIDERS: Emergency Provider Emergency Medicine; Visit Provider Emergency Medicine
DX: S61.012A Laceration without foreign body of left thumb without damage to nail, initial encounter (principal); Z90.49 Acquired absence of other specified parts of digestive tract; W29.8XXA Contact with other powered hand tools and household machinery, initial encounter
CPT/HCPCS: 12001; 99282